=== PATIENT | female | born 1985 | race Caucasian/White ===

== ENCOUNTER 2019-06-12 13:45 | Emergency (ER) | payer MEDICAID, SELFPAY ==
[2019-06-12 13:46] VITALS: BP 140/105; PULSE 118; RESP 17; TEMP 36.4; O2SAT 96; BMI 41.9
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
--- NOTE | 2019-06-12 14:13 | PC.NURSE ---
Patient wanders into song at this time. Patient states I want to go home, I just need to go home and take a shower. Patient is asked to return to her room and that this nurse would notify the provider. ED physician notified of patient behavior at this time.
[2019-06-12] MEDS: LORazepam 1 mg Tablet PO (14:45)
--- NOTE | 2019-06-12 14:52 | PC.NURSE ---
Patient is up in room and pacing at this time. Patient states that she would like to leave. States she just wants to go home. Patient then mumbles several sentences I am unable to make out and she refuses to repeat. Patient does take ordered PO ativan at this time, but is restless and seems increasingly agitated & tearful. ED physician notified.
[2019-06-12 15:12] VITALS: PULSE 96; RESP 24; O2SAT 99
[2019-06-12 15:34] LABS: Alanine Aminotransferase 34 U/L (0-33); Albumin Level 4.5 g/dL (3.5-5.2); Alkaline Phosphatase 98 IU/L (35-105); Anion Gap 14.3 (5-19); Aspartate Amino Transferase 28 U/L (0-32); Blood Urea Nitrogen 14 mg/dL (6-20); Calcium 10.1 mg/Dl (8.6-10.0); Carbon Dioxide 25 mmol/L (22-29); Chloride 103 mmol/L (98-107); Globulin 3.3 g/dL (1.3-4.6); Glomerular Filtration Rate 81.6 mL/min (90-130); Glucose 110 mg/dL (74-109); Potassium 3.3 mmol/L (3.5-5.1); Sodium 139 mmol/L (136-145); Total Bilirubin 0.3 mg/dL (0.15-1.2); Total Protein 7.8 g/dL (6.6-8.7)
[2019-06-12 15:47] LABS: Basophils % 0.4 %; Eosinophils # 0.2 10^3/uL (0.0-0.8); Eosinophils % 2.6 %; Hematocrit 45.2 % (37.0-47.0); Hemoglobin 14.8 g/dL (11.5-15.3); Lymphocytes # 2.6 10^3/uL (0.8-4.8); Lymphocytes % 30.1 %; Mean Corpuscular HGB Conc 32.7 g/dL (30.0-36.0); Mean Corpuscular Hemoglobin 30.6 pg (28.0-34.0); Mean Corpuscular Volume 93.6 fL (81-99); Mean Platelet Volume 10.1 fL (7.4-10.4); Monocytes # 0.5 10^3/uL (0.2-0.9); Monocytes % 5.3 %; Neutrophils # 5.2 10^3/uL (1.8-7.7); Neutrophils % 60.9 %; Nucleated Red Blood Cells % 0 %; Platelet Count 312 10^3/cmm (130-400); Red Blood Count 4.83 10^6/uL (4.1-5.3); Red Cell Distribution Width 12.5 % (12.1-15.1); White Blood Count 8.5 10^3/uL (4.0-10.0)
== END 2019-06-12 15:13 | disposition left against medical advice (07) ==
LOC: ER 15:14
PROVIDERS: Emergency Provider Family Medicine
DX: F15.90 Other stimulant use, unspecified, uncomplicated (principal); Z53.21 Procedure and treatment not carried out due to patient leaving prior to being seen by health care provider; F17.210 Nicotine dependence, cigarettes, uncomplicated
CPT/HCPCS: 36415; 80053; 85025; 99281

== ENCOUNTER → 2019-08-18 15:33 | Outpatient (BNVA) | payer MEDICAID, SELFPAY | PROVIDERS: PCP Nurse Practitioner; Visit Provider Nurse Practitioner | DX: E78.2 Mixed hyperlipidemia (principal); E55.9 Vitamin D deficiency, unspecified; F41.9 Anxiety disorder, unspecified; I10 Essential (primary) hypertension; Z91.030 Bee allergy status; J45.909 Unspecified asthma, uncomplicated | CPT/HCPCS: 80053; 80061; 82306 ==

== ENCOUNTER → 2019-11-26 13:34 | Outpatient (BNVA) | payer MEDICAID, SELFPAY | PROVIDERS: PCP Nurse Practitioner; Visit Provider Psychiatry & Neurology Psychiatry | DX: F43.12 Post-traumatic stress disorder, chronic (principal); F33.1 Major depressive disorder, recurrent, moderate; F10.20 Alcohol dependence, uncomplicated; F12.20 Cannabis dependence, uncomplicated | CPT/HCPCS: 99204 ==

== ENCOUNTER 2020-01-04 09:48 | Emergency (ER) | payer OTHER, SELFPAY ==
[2020-01-04 09:48] VITALS: BP 135/101; PULSE 119; RESP 18; TEMP 36.7; O2SAT 96; BMI 41.5
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
[2020-01-04] MEDS: HYDROcodone-acetaminophen 7.5-325 mg Tablet 1 TAB PO (10:06)
[2020-01-04 11:31] VITALS: BP 148/88; PULSE 75; RESP 15; O2SAT 98
== END 2020-01-04 11:31 | disposition home or self-care (01) ==
LOC: ER 11:31
PROVIDERS: Emergency Provider Physician Assistant; PCP Nurse Practitioner
DX: Z04.1 Encounter for examination and observation following transport accident (principal); V89.2XXA Person injured in unspecified motor-vehicle accident, traffic, initial encounter; I10 Essential (primary) hypertension; E78.2 Mixed hyperlipidemia; F17.210 Nicotine dependence, cigarettes, uncomplicated
CPT/HCPCS: 12345; 70450; 72125; 73562; 73630; 99281; 99283

== ENCOUNTER → 2020-01-06 16:51 | Outpatient (BNVA) | payer MEDICAID, SELFPAY | PROVIDERS: PCP Nurse Practitioner; Visit Provider Nurse Practitioner Family | DX: E78.2 Mixed hyperlipidemia (principal); F41.9 Anxiety disorder, unspecified; M25.511 Pain in right shoulder; I10 Essential (primary) hypertension; E55.9 Vitamin D deficiency, unspecified; V89.2XXD Person injured in unspecified motor-vehicle accident, traffic, subsequent encounter; M25.561 Pain in right knee; M25.562 Pain in left knee; K21.9 Gastro-esophageal reflux disease without esophagitis | CPT/HCPCS: 80053; 80061; 82306; 84443; 85025 ==

== ENCOUNTER → 2020-03-31 00:01 | Outpatient (BNVA) | payer MEDICAID, SELFPAY | PROVIDERS: PCP Nurse Practitioner; Visit Provider Nurse Practitioner Family | DX: L02.211 Cutaneous abscess of abdominal wall (principal); I10 Essential (primary) hypertension; K21.9 Gastro-esophageal reflux disease without esophagitis; F33.1 Major depressive disorder, recurrent, moderate; E55.9 Vitamin D deficiency, unspecified; E78.2 Mixed hyperlipidemia; F41.9 Anxiety disorder, unspecified | CPT/HCPCS: 87070; 87075; 87077; 87184; 87205 ==

== ENCOUNTER → 2020-04-01 11:28 | Outpatient (BNVA) | payer MEDICAID, SELFPAY | PROVIDERS: PCP Nurse Practitioner; Visit Provider Nurse Practitioner Family | DX: I10 Essential (primary) hypertension (principal); E55.9 Vitamin D deficiency, unspecified | CPT/HCPCS: 80053; 80061; 82306; 84443; 85025 ==

== ENCOUNTER → 2020-04-21 08:22 | Outpatient (BNVA) | payer MEDICAID, SELFPAY | PROVIDERS: PCP Nurse Practitioner; Visit Provider Psychiatry & Neurology Psychiatry | DX: F33.1 Major depressive disorder, recurrent, moderate (principal); F41.9 Anxiety disorder, unspecified; F43.12 Post-traumatic stress disorder, chronic; F10.20 Alcohol dependence, uncomplicated; F12.20 Cannabis dependence, uncomplicated | CPT/HCPCS: 99214 ==

== ENCOUNTER → 2020-07-12 08:30 | Outpatient (BNVA) | payer MEDICAID, SELFPAY | PROVIDERS: PCP Nurse Practitioner; Visit Provider Psychiatry & Neurology Psychiatry | DX: F41.9 Anxiety disorder, unspecified (principal); F33.1 Major depressive disorder, recurrent, moderate; F10.20 Alcohol dependence, uncomplicated; F12.20 Cannabis dependence, uncomplicated; F43.12 Post-traumatic stress disorder, chronic | CPT/HCPCS: 99214 ==

== ENCOUNTER → 2020-09-30 12:16 | Outpatient (BNVA) | payer MEDICAID, SELFPAY | PROVIDERS: PCP Nurse Practitioner Family; Visit Provider Psychiatry & Neurology Psychiatry | DX: F41.9 Anxiety disorder, unspecified (principal); F33.1 Major depressive disorder, recurrent, moderate; F10.20 Alcohol dependence, uncomplicated; F12.20 Cannabis dependence, uncomplicated; F43.12 Post-traumatic stress disorder, chronic | CPT/HCPCS: 80053; 80061; 82306; 84443; 85025; 99214 ==

== ENCOUNTER 2020-10-04 12:40 | Outpatient (CLI) | payer MEDICAID, SELFPAY ==
[2020-10-04 12:50] VITALS: BMI 19.5
--- NOTE | 2020-10-04 12:51 | USCV_ITS ---
[facility] Age: 35 Gender: F : 1985 Exam Date: 10/04/2020 13:23 Ordering Phys: Jacobo Johnson MD ([email or web address]) Technologist: Mayra Arcos Exam Location: [facility] [place] Indication: atypical chest pain/ abnormal ekg Rhythm: Sinus Patient History: Chest pain Cardiac Medications: Medications in past 24 hours: Contrast: Stress Results Protocol: Jay Total dose(mL): Exercise Duration (min:sec): 6:46 METS: 10.2 Resting HR: 79 Resting BP: 127 / 66 Peak HR: 176 Peak BP: 265 / 112 Max Predicted HR: 184 96 % Max Predicted HR Target HR: 156 Double Product: 52760 Stress Summary: The patient's target heart rate was achieved BP Response: Normal Reason for Termination: Reached target heart rate or work-load Cardiac Symptoms: None ECG Analysis Resting ECG: Normal sinus rhythm, no ST- T wave changes Stress ECG: Sinus tachycardia no ST-T wave changes Arrhythmia: None MEASUREMENTS (Male/Female) Normal Values FINDINGS EXERCISE DATA: The patient was exercised by Jay protocol. Baseline heart rate was 79 beats per minute. Baseline blood pressure was 127/66 millimeters of mercury. Target heart rate was 156 beats per minute. Maximum heart rate achieved was 176, which was 112% of the target heart rate. Maximum blood pressure was 265/112 millimeters of mercury. Total exercise time was 6 minutes and 46 seconds. Maximum METs achieved was 10.2. The reason for ending the test was completion of the protocol. ELECTROCARDIOGRAM: BASELINE: Showed sinus rhythm, normal axis, no significant ST-T changes at the baseline noted. [] EXERCISE: At the peak exercise level, No significant ST-T changes suggestive of ischemia noted. [] RECOVERY: During the recovery period, heart rate dropped appropriately. No significant ST-T changes in the recovery suggestive of ischemia noted. [] BASELINE ECHO: Normal LV systolic function with EF of 55-60%. No regional wall motion abnormalities are seen. EXERCISE ECHO: At peak exercise appropriate tachycardia is noted. LV is appropriately hyperdynamic and no regional wall motion abnormalities suggesting ischemia noted CONCLUSIONS 1. Exercise capacity good. 2. Heart rate response was appropriate. 3. Blood pressure response was hypertensive. 4. Symptoms not suggestive of ischemia. 5. Normal exercise stress echocardiogram without evidence of ischemia Tom Weller MD (Electronically Signed) Final Date: 06 October 2020 10:52 S
--- NOTE | 2020-10-04 13:02 | ECG_ITS ---
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 Interpretive Statements NAME OF STUDY: TREADMILL STRESS ECHOCARDIOGRAM INDICATION: [Chest pain ] PROCEDURE: Patient was exercised by Jay protocol. Baseline heart rate was 79 beats per minute. Baseline blood pressure was 127/66 millimeters of mercury. Target heart rate was 156 beats per minute. Maximum heart rate achieved was 176, which was 112% of the target heart rate. Maximum blood pressure was 265/112 millimeters of mercury. Total exercise time was 6 minutes and 46 seconds. Maximum METs achieved was 10.2.The reason for ending the test was completion of the protocol. ELECTROCARDIOGRAM: BASELINE: Showed sinus rhythm, normal axis, no significant ST-T changes at the baseline noted. EXERCISE: At the peak exercise level, No significant ST-T changes suggestive of ischemia noted. RECOVERY: During the recovery period, heart rate dropped appropriately. No significant ST-T changes in the recovery suggestive of ischemia noted. CONCLUSIONS: 1. Exercise capacity is good. 2. Heart rate response was appropriate. 3. Blood pressure response was hypertensive 4. Symptoms not suggestive of ischemia. 5. Electrocardiogram portion of the stress test was not suggestive of ischemia. 6. ECHO portion of the stress test will be documented separately. Electronically Signed On 10-06-2020 11:04:20 CDT by Tom Weller M.D. [id number]
[2020-10-04 13:59] VITALS: BP 108/66; PULSE 100
== END 2020-10-04 12:41 | disposition home or self-care (01) ==
LOC: CDL 12:40
PROVIDERS: PCP Nurse Practitioner Family; Visit Provider Internal Medicine Cardiovascular Disease
DX: R07.89 Other chest pain (principal); R94.31 Abnormal electrocardiogram [ECG] [EKG]; I10 Essential (primary) hypertension
CPT/HCPCS: 93017; 93350

== ENCOUNTER 2021-03-26 11:27 | Inpatient (IN) | payer MEDICAID, SELFPAY ==
[2021-03-26 11:29] VITALS: BP 125/92; PULSE 96; RESP 15; TEMP 36.9; O2SAT 98; BMI 31.3
--- NOTE | 2021-03-26 11:42 | ECG_ITS ---
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 Measurements Intervals [place] Rate: 87 P: 50 PA: 163 QRS: 62 QRSD: 100 T: 44 QT: 374 QTc: 451 Interpretive Statements SINUS RHYTHM NONSPECIFIC T-WAVE ABNORMALITY No previous ECG available for comparison Electronically Signed On 03-26-2021 21:02:47 CDT by Saundra Goldberg M.D. [id number]
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
[2021-03-26 12:11] VITALS: BP 140/90; PULSE 94; RESP 17; TEMP 36.9; O2SAT 98
[2021-03-26 12:32] LABS: Basophils % 0.5 %; Eosinophils % 0.6 %; Hematocrit 48.5 % (37.0-47.0); Hemoglobin 16.4 g/dL (11.5-15.3); Lymphocytes # 1.7 10^3/uL (0.8-4.8); Lymphocytes % 26.3 %; Mean Corpuscular HGB Conc 33.8 g/dL (30.0-36.0); Mean Corpuscular Hemoglobin 31.7 pg (28.0-34.0); Mean Corpuscular Volume 93.6 fl (81-99); Mean Platelet Volume 11.1 fL (7.4-10.4); Monocytes # 0.5 10^3/uL (0.2-0.9); Monocytes % 8.1 %; Neutrophils % 64.2 %; Nucleated Red Blood Cells % 0 %; Platelet Count 188 10^3/cmm (130-400); Red Blood Count 5.18 10^6/uL (4.1-5.3); Red Cell Distribution Width 11.9 % (12.1-15.1); White Blood Count 6.5 10^3/uL (4.0-10.0)
[2021-03-26 12:58] LABS: Alanine Aminotransferase 23 U/L (0-33); Albumin Level 4.3 g/dL (3.5-5.2); Alkaline Phosphatase 75 IU/L (35-105); Aspartate Amino Transferase 20 U/L (0-32); Blood Urea Nitrogen 12 mg/dL (6-20); Calcium 9.2 mg/dL (8.5-10.5); Carbon Dioxide 26 mmol/L (22-29); Chloride 105 mmol/L (98-107); Glomerular Filtration Rate 81.2 mL/min (90-130); Glucose 93 mg/dL (65-115); Osmolality Calculated 293 mOsm/kg (285-295); Sodium 142 mmol/L (136-145); Thyroid Stimulating Hormone 1.23 uIU/mL (0.27-4.20); Total Bilirubin 0.9 mg/dL (0.15-1.2); Total Protein 7.3 g/dL (6.6-8.7)
[2021-03-26 13:02] LABS: Acetaminophen < 5.0 ug/mL (10-30); Alcohol Level < 10 mg/dL (0-10); Salicylate < 0.3 mg/dL (3-10)
[2021-03-26 13:54] LABS: Amphetamines Screen Urine Negative (Negative); Barbiturates Screen Urine Negative (Negative); Benzodiazepines Screen Urine Positive (Negative); Cocaine Screen Urine Negative (Negative); Opiate Screen Urine Negative (Negative); PCP Screen Urine Negative (Negative); THC Screen Urine Negative (Negative)
[2021-03-26 13:57] VITALS: BP 129/68; PULSE 75; RESP 17; TEMP 37; O2SAT 96
[2021-03-26 14:00] LABS: Urine Appearance SL Hazy (CLEAR); Urine Color Dark Yellow (Yellow)
[2021-03-26 14:01] LABS: Blood Urine 2+ (Negative); Glucose Urine UA Norm (Normal); Ketones Urine 2+ (Negative); Protein Urine Neg (Negative); pH Urine 5 (5-7)
[2021-03-26 14:02] LABS: Add Urine Microscopic? YES; Bilirubin Urine 1+ (Negative); Leukocyte Esterase Urine 1+ (Negative); Nitrate Urine Negative (Negative); Urobilinogen Urine 8 mg/dL (Negative)
[2021-03-26 14:03] LABS: Add Urine Culture? Yes; Amorphous Sediment Urine 1+ /hpf; Bacteria Urine 1+ /hpf; Squamous Epithelial Cell Urine 0-4 /hpf (0-5); WBC Urine 15-25 /hpf (0-5)
[2021-03-26 14:18] LABS: HCG Qualitative Urine. Negative (Negative)
[2021-03-26 16:01] VITALS: BP 128/70; PULSE 88; RESP 17; TEMP 36.7; O2SAT 97
--- NOTE | 2021-03-26 16:05 | PC.NURSE ---
Pt states I know I already have a whole in my arm, can you give me a shot and put me out of my misery. I know that I have a whole in my arm and I'm bleeding everywhere. I know I'm dying. Provider notifed.
[2021-03-26 16:31] VITALS: BP 128/70; PULSE 88; RESP 17; TEMP 36.7; O2SAT 97
[2021-03-26] MEDS: cephALEXin 500 mg Capsule PO (18:18)
[2021-03-26] MEDS: acetaminophen 325 mg Tablet 650 MG PO (18:24)
[2021-03-26 20:53] VITALS: BP 150/90; PULSE 50; RESP 15; TEMP 36.8; O2SAT 97
--- NOTE | 2021-03-26 20:54 | PC.NURSE ---
RN notified of b/p
--- NOTE | 2021-03-26 21:10 | PC.NURSE ---
PT wants to DC AMA, attempted to call physician, call went to voicemail. no answer, voicemail is full, will attempt to call him again. pt states she has a place to go and can obtain ride. she is not SI/HI at this time.
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
--- NOTE | 2021-03-27 01:20 | PC.NURSE ---
during rounding staff noticed pt had door shut, staff opened the door to find pt had put bedside table in front of door to block staff from entering staff educated pt that it was not allowed to have door shut or to block door from opening. Pt stated i'm not suicidal therefor it can be shut staff educated pt on unit rules/policy stating the door had to be open, pt responded with y'all are trying to kill me, I don't want no more shots staff reminded pt that they did not receive any medication via shot
--- NOTE | 2021-03-27 05:04 | PC.NURSE ---
NO RIDE/AMA PT WANTS TO DC AMA, PHYSICIAN NOTIFIED, SISTER BREANA JORDAN, CONTACTED. SHE LIVES IN [place], STATES SHE CAN NOT COME TO PICK HER UP DUE TO LACK OF MONEY FOR GAS. PT RETURNED TO HER ROOM, STATES iM LEAVING IN THE MORNING EVEN IF I HAVE TO WALK HOME. PT WENT TO HER ROOM WHERE SHE IS PACING. SHE HAS NOT SLEPT AT ALL TONIGHT. PT HAS PERMISSION TO LEAVE UNIT, PER DR. MENDOZA AND ARBORIST REPRESENTATIVE.
[2021-03-27 06:00] VITALS: BP 117/79; PULSE 69; RESP 18; TEMP 36.8; O2SAT 97
--- NOTE | 2021-03-27 07:09 | PC.NURSE ---
pt coming up to nurses station stating i want a cigarette, you guys are going to put me out anyway staff educated pt on policy regarding smoking on hospital property pt then stated i cant be around my kids with that mask can i? staff asked pt to clarify pt said Im confused, can't I wear this mask around my kids? staff educated pt that wearing mask around children was not harmful pt does not have a mask, pt is confused at this moment
--- NOTE | 2021-03-27 08:13 | PC.NURSE ---
refused scheduled Keflex this morning
--- NOTE | 2021-03-27 11:04 | PC.NURSE ---
Patient standing at nursing desk, staring at wall, stating You can't hold me here, I'm leaving. I need to go. I have to check on my children. Advised patient the doctor had to speak with her first. She kept repeating, I need to check on Rajendra. Reports her children are with her aunt. Dr. Carrera aware of patient actions.
--- NOTE | 2021-03-27 11:11 | NPU.GN ---
[facility] Group Topic:Dice Breaker General Mood of Group: Yessica did not attend group therapy today. Possible 96 hr hold was stated in team meeting with doctor this morning.
[2021-03-27 14:00] VITALS: BP 117/62; PULSE 107; RESP 20; TEMP 36.3; O2SAT 97
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
--- NOTE | 2021-03-27 15:45 | PC.NURSE ---
Patient very restless, wringing hands, pacing hallways, approached patient multiple times, asking if I could help her or get her anything, I just need a cigarette Informed patient I could get her a nicotine patch or gum. Patient declined, I just need to smoke.
--- NOTE | 2021-03-27 16:13 | PC.NURSE ---
Patient continues to report that she is afraid she is going to today. Continues to pace up and down the hallways, wanting a cigarette, offered a nicotine patch and patient declines. Reassured patient we are monitoring her for safety.
--- NOTE | 2021-03-27 17:17 | PC.RESP ---
Smoking Cessation information sent to patient.
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
[2021-03-27 22:00] VITALS: BP 116/78; PULSE 72; RESP 16; TEMP 36.7; O2SAT 98
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
[2021-03-28] MEDS: acetaminophen 325 mg Tablet 650 MG PO (04:31)
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
[2021-03-28 06:00] VITALS: BP 129/80; PULSE 97; RESP 18; TEMP 37; O2SAT 96
--- NOTE | 2021-03-28 07:55 | PC.NURSE ---
PATIENT AT NURSES DESK DEMANDING TO BE LET OUT. SLAPPING HANDS ON COUNTER. PACING BACK AN FORTH FROM ROOM TO DESK, STANDING IN DOORWAY STARING AT NURSES STATION. STATING, YOU NEED TO HURRY IT UP! I NEED TO LEAVE, YOU CAN'T HOLD ME HERE. I HAVE TO CHECK ON MY SISTER. LET ME OUT. INFORMED PATIENT THAT I NEEDED FOR HER TO BE SEEN THIS MORNING OR TO BE ABLE TO OBTAIN A DISCHARGE FROM THE PHYSICIAN TO LET HER LEAVE. OFFERED PATIENT PRN MEDICATIONS, AND SHE REPLIED, YOU ARE TRYING TO KILL ME, YOU ARE TRYING TO KILL ALL OF US.
--- NOTE | 2021-03-28 08:03 | PC.NURSE ---
PATIENT DID NOT EAT ANY OF HER BREAKFAST WHEN TRAYS WERE TAKEN TO THE DAYROOM. AFTER TRAYS WERE COLLECTED SHE CAME TO DESK AND ASKED FOR SOMETHING TO EAT, STAFF GAVE HER A BREAKFAST TRAY, AND ADDED A CLOSED BOX OF CEREAL, MILK AND A BANANA, DUE TO PARANOIA OF US POISONING HER. CARRIED HER TRAY TO THE DAYROOM AND THEN SHE REFUSED TO EAT IT. RETURNED TRAY TO CAFETERIA CART. THEN PATIENT ASKED FOR THE BANANA, AND WENT TO HER ROOM.
--- NOTE | 2021-03-28 08:23 | PC.NURSE ---
refused scheduled Keflex
--- NOTE | 2021-03-28 08:27 | PC.NURSE ---
PATIENT AGAIN AT DESK DEMANDING TO GO HOME, KICKING CABINET AND PUSHING ON DOOR TO FOYER, SHE CONTINUED PUSHING AND RAMMING UNTIL BOTTOM OF DOOR WAS MOVING ABOUT 4-8 INCHES. HAD SECURITY PAGED FOR PRESENCE ON UNIT. DIRECTED PATIENT AWAY FROM DOOR, AND CONTINUED TO TALK WITH HER ABOUT CONCERNS FOR HER FAMILY'S SAFETY, HOW SHE FELT THAT THEY WOULD WHEN SHE DID. AND SHE NEEDED OUT TO CHECK ON HER KIDS AND FAMILY. CONTINUED TO REINFORCE TO PATIENT THAT SHE TOLD ME YESTERDAY HER CHILDREN WERE WITH HER SISTER AND GRANDMOTHER. PATIENT EVENTUALLY WALKED AWAY AND RETURNED TO HER ROOM. SHE THEN CAME TO THE DESK AND APOLOGIZED TO TALKING TO ME THAT WAY. SHE CONTINUES TO PACE THE HALLWAY MAKING STATEMENTS WHOEVER PUT ME IN THIS GAME IS BULLCRAP.
--- NOTE | 2021-03-28 11:55 | NPU.GN ---
[facility] Topic: Mariely General Mood of Group: Yessica did not attend group therapy today. Yessica was huddled on the floor crying in the hallway throughout the morning.
--- NOTE | 2021-03-28 12:56 | PC.NURSE ---
Attempted to contact both phone numbers listed on the demographics page of Ms. Vasquez's record, no answer at either number and unable to leave message.
[2021-03-28 14:00] VITALS: BP 125/88; PULSE 80; RESP 18; TEMP 36.2; O2SAT 97
--- NOTE | 2021-03-28 17:31 | PC.NURSE ---
FAMILY CONTACT AUNT, SUNIL HARRINGTON [phone]
--- NOTE | 2021-03-28 19:08 | PM.NPN ---
Subjective NPU Subjective: Interval history: Patient presents today continue to have confusion and going on long confusing rants about people she cares about dying and about her dying and trying to avoid at all cost. We discussed the risk benefits and alternatives of a trial of an antipsychotic and she understood it at this point is unwilling to proceed with the medication as is documented in this note. She cannot explain benzodiazepines in her UDS and we discussed that she is not having other signs but misuse, intoxication or withdrawal from benzodiazepines could cause confusion. Mental Status Exam MSE Comments: This is an obese, white female, in hospital scrubs, with adequate grooming, and limited eye contact. No abnormal movements except for mild psychomotor agitation. Cooperative with exam in no acute distress. Speech was normal rate and volume. Mood described as okay; affect was confused. Thought process, organized. Thought content: patient denied any suicidal or homicidal ideation, there were no delusions noted, but she did report some paranoia. Patient denied any auditory or visual hallucinations. Attention, concentration, and memory appear intact but were not formally tested. He is alert and oriented times three. Insight and judgment are impaired, impulse control is impaired. Vitals/I&O/Wt Last Vital Signs Temp 97.5 F L 03/28/21 20:38 Pulse 106 H 03/28/21 20:38 Resp 16 03/28/21 20:38 BP 108/82 03/28/21 20:38 Pulse Ox 95 03/28/21 20:38 Data NPU : 03/26/21 12:00 03/26/21 12:00 Micro: Microbiology 03/26/21 11:55 Urine Culture - Final Urine,Clean Catch Escherichia coli Microbiology 03/26/21 11:55 Urine,Clean Catch Urine Culture - Final Escherichia coli A&P Additional A&P Information (1) Allergic rhinitis: (2) Smoking addiction: (3) History of alcohol abuse: (4) History of intravenous drug abuse: (5) OROSCO (dyspnea on exertion): (6) Dyslipidemia: (7) Abnormal EKG: (8) Atypical chest pain: (9) Declined smoking cessation: (10) RLS (restless legs syndrome): (11) Abscess of skin of abdomen: (12) Right knee pain: (13) GERD (gastroesophageal reflux disease): (14) Bilateral knee pain: (15) Right shoulder pain: (16) Cannabis use disorder, moderate, dependence: (17) Alcohol use disorder, severe, dependence: (18) Major depressive disorder, recurrent, moderate: (19) Post-traumatic stress disorder, chronic: (20) Bee sting allergy: (21) Allergic atopic asthma without complication: (22) Vitamin D deficiency: (23) Anxiety: (24) Mixed hyperlipidemia: (25) Essential (primary) hypertension: (26) Altered mental status: Additional A&P Information This is a 35-year-old, white female, with history of alcohol use disorder, severe, post-traumatic stress disorder, major depressive disorder, and cannabis use disorder, who presents with either confusion that prevents accurate history giving, or intentional misrepresentation of history, who presents denying interest in medication or treatment. RECOMMENDATION AND PLAN: 1. Continue current medication. We will continue to suggest a low-dose antipsychotic to attempt to address her psychosis versus confusion. 2. Encourage individual, group, and milieu therapy. 3. Continue q-15 minute checks for safety. 4. Encourage sober living treatment after discharge, at the highest level of care, to which she is willing to commit. Involuntary Hold Information 96 Hour Hold: 96 Hour Involuntary Admission: No Attestations NPU Medical Necessity Statement*: Inpatient hospitalization is medically necessary and the clinically appropriate intervention, at this time. We will monitor medications and make changes as indicated. Likely length of stay is 2-4 days. Coding Level of Care Code Acute Supervisor Aircraft Cleaning for Ricardo Reyes
[2021-03-28 20:38] VITALS: BP 108/82; PULSE 106; RESP 16; TEMP 36.4; O2SAT 95
[2021-03-28] MEDS: trazodone 50 mg Tablet PO (21:16)
[2021-03-29 06:00] VITALS: BP 99/63; PULSE 72; RESP 18; TEMP 36.4; O2SAT 100
--- NOTE | 2021-03-29 12:16 | NPU.GN ---
[facility] Topic:Coping Skills Bingo/ Cross word puzzle General Mood of Group: Yessica did not attend and participate in group therapy this morning. Yessica wanted to sleep.
--- NOTE | 2021-03-29 13:10 | P.PN_ITS ---
Subjective NPU Subjective: Interval history: Patient continues to perseverate about dying. She is now refusing her antibiotics and is still not open to a trial of an antipsychotic. We discussed the possibility of a 96-hour hold but discussed the fact that Dr. Wright will be here tomorrow and he can take a look at her situation. Mental Status Exam MSE Comments: This is an obese, white female, in hospital scrubs, with adequate grooming, and limited eye contact. No abnormal movements except for mild psychomotor agitation. Cooperative with exam in no acute distress. Speech was normal rate and volume. Mood described as fine, i just don't want to ; affect was irritable and confused. Thought process was loosely organized. Thought content: patient denied any suicidal or homicidal ideation, there were no delusions noted, but she did report some paranoia. Patient denied any auditory or visual hallucinations. Attention, concentration, and memory appear intact but were not formally tested. She is alert and oriented times three. Insight and judgment are impaired, impulse control is impaired. Vitals/I&O/Wt Last Vital Signs Temp 97.6 F 03/29/21 06:00 Pulse 72 03/29/21 06:00 Resp 18 03/29/21 06:00 BP 99/63 03/29/21 06:00 Pulse Ox 100 03/29/21 06:00 Data NPU : 03/26/21 12:00 03/26/21 12:00 A&P Additional A&P Information (1) Allergic rhinitis: (2) Smoking addiction: (3) History of alcohol abuse: (4) History of intravenous drug abuse: (5) OROSCO (dyspnea on exertion): (6) Dyslipidemia: (7) Abnormal EKG: (8) Atypical chest pain: (9) Declined smoking cessation: (10) RLS (restless legs syndrome): (11) Abscess of skin of abdomen: (12) Right knee pain: (13) GERD (gastroesophageal reflux disease): (14) Bilateral knee pain: (15) Right shoulder pain: (16) Cannabis use disorder, moderate, dependence: (17) Alcohol use disorder, severe, dependence: (18) Major depressive disorder, recurrent, moderate: (19) Post-traumatic stress disorder, chronic: (20) Bee sting allergy: (21) Allergic atopic asthma without complication: (22) Vitamin D deficiency: (23) Anxiety: (24) Mixed hyperlipidemia: (25) Essential (primary) hypertension: (26) Altered mental status: Additional A&P Information This is a 35-year-old, white female, with history of alcohol use disorder, severe, post-traumatic stress disorder, major depressive disorder, and cannabis use disorder, who presents with either confusion that prevents accurate history giving, or intentional misrepresentation of history, who presents denying interest in medication or treatment. RECOMMENDATION AND PLAN: 1. Continue current medication. We will continue to suggest a low-dose antipsychotic to attempt to address her psychosis versus confusion. 2. Encourage individual, group, and milieu therapy. 3. Continue q-15 minute checks for safety. 4. Encourage sober living treatment after discharge, at the highest level of care, to which she is willing to commit. 5. We will consider a 21-day hold. Involuntary Hold Information 96 Hour Hold: 96 Hour Involuntary Admission: No Attestations NPU Medical Necessity Statement*: Inpatient hospitalization is medically necessary and the clinically appropriate intervention, at this time. We will monitor medications and make changes as indicated. Likely length of stay is 2-4 days. Coding Level of Care Code Acute Polls Or Surveys Interviewer for Ricardo Reyes
[2021-03-29 14:00] VITALS: BP 118/86; PULSE 91; RESP 16; TEMP 36.6; O2SAT 98
--- NOTE | 2021-03-29 19:40 | PC.NURSE ---
pt refusal to take Antibiotic Pt refused to take medication, thinks about taking med, but will not. Refused Keflex
[2021-03-29 20:08] VITALS: BP 126/89; PULSE 93; RESP 18; TEMP 37.2; O2SAT 94
--- NOTE | 2021-03-30 04:31 | PC.NURSE ---
Patient up early in shift. Calm and cooperative with appropriate affect. Denied SI/HI, AVH, anxiety or depression. Quiet with minimal interaction with others but appropriate when approached. Patient pacing in song much of night. In bed resting with eyes closed at 0400.
[2021-03-30 06:00] VITALS: BP 129/69; PULSE 76; RESP 14; TEMP 37; O2SAT 97
--- NOTE | 2021-03-30 08:18 | PC.NURSE ---
refused scheduled Keflex
--- NOTE | 2021-03-30 13:02 | NPU.GN ---
[facility] Topic:Coping Kills Checklist General Mood of Group: Yessica did not attend group today. She wanted to sleep.
[2021-03-30 14:00] VITALS: BP 116/80; PULSE 70; RESP 16; TEMP 36.3; O2SAT 96
--- NOTE | 2021-03-30 14:17 | PM.NPN ---
Subjective NPU Subjective: Interval history: The patient is still unable to tell a coherent story about how her symptoms developed, what they were, and even what brought her to the hospital. She says her mood is okay, that she is no longer feeling depressed, and that she is not feeling she is going to . On the other hand, when asked why she came here, she said, I felt weird, like I was dying. I guess it's better. She does not notice the inconsistency between saying the feeling that she is going to went away and feeling like it still here. We talked about medication again, and she is still unwilling to take medications. We talked about her past treatment for anxiety and panic, which she indicates is better these days. We also talked about her 4 children, two of whom live with her at her aunt's house. She denies auditory and visual hallucinations. She denies suicidal and homicidal ideation. Mental Status Exam MSE Comments: This is an obese, white female, in hospital scrubs, with adequate grooming, and limited eye contact. No abnormal movements except for mild psychomotor agitation. Cooperative with exam in no acute distress. Speech was normal rate and volume. Mood described as okay; affect was irritable and confused. Thought process was loosely organized. Thought content: patient denied any suicidal or homicidal ideation, there were no delusions noted, but she did report some paranoia. Patient denied any auditory or visual hallucinations. Attention, concentration, and memory appear intact but were not formally tested. She is alert and oriented times three. Insight and judgment are impaired, impulse control is impaired. Vitals/I&O/Wt Last Vital Signs Temp 98.6 F 03/30/21 06:00 Pulse 76 03/30/21 06:00 Resp 14 03/30/21 06:00 BP 129/69 03/30/21 06:00 Pulse Ox 97 03/30/21 06:00 Data NPU : 03/26/21 12:00 03/26/21 12:00 A&P Assessment and plan (1) Altered mental status: Status: Acute (2) History of intravenous drug abuse: Status: Acute (3) Abnormal EKG: Status: Acute (4) Atypical chest pain: Status: Acute (5) RLS (restless legs syndrome): Status: Acute (6) Abscess of skin of abdomen: Status: Acute (7) Head lice: Status: Acute (8) Cannabis use disorder, moderate, dependence: Status: Acute (9) Alcohol use disorder, severe, dependence: Status: Acute (10) Major depressive disorder, recurrent, moderate: Status: Acute (11) Post-traumatic stress disorder, chronic: Status: Acute (12) Bee sting allergy: Status: Chronic (13) Vitamin D deficiency: Status: Acute (14) Anxiety: Status: Chronic Additional A&P Information This is a 35-year-old, white female, with history of alcohol use disorder, severe, post-traumatic stress disorder, major depressive disorder, and cannabis use disorder, who presents with either confusion that prevents accurate history giving, or intentional misrepresentation of history, who presents denying interest in medication or treatment. RECOMMENDATION AND PLAN: 1. Continue current medication. We will continue to suggest a low-dose antipsychotic to attempt to address her psychosis versus confusion. 2. Encourage individual, group, and milieu therapy. 3. Continue q-15 minute checks for safety. 4. Encourage sober living treatment after discharge, at the highest level of care, to which she is willing to commit. Involuntary Hold Information 96 Hour Hold: 96 Hour Involuntary Admission: No Attestations NPU Medical Necessity Statement*: Inpatient hospitalization is medically necessary and the clinically appropriate intervention, at this time. We will monitor medications and make changes as indicated. Likely length of stay is 2-4 days. Coding Level of Care Code Acute Custom Shop Worker for g Fwd Diagnoses Altered mental status R41.82 History of intravenous drug abuse F19.11 Abnormal EKG R94.31 Atypical chest pain R07.89 RLS (restless legs syndrome) G25.81 Abscess of skin of abdomen L02.211 Head lice B85.0 Cannabis use disorder, moderate, dependence F12.20 Alcohol use disorder, severe, dependence F10.20 Major depressive disorder, recurrent, moderate F33.1 Post-traumatic stress disorder, chronic F43.12 Bee sting allergy Z91.030 Vitamin D deficiency E55.9 Anxiety F41.9
[2021-03-30 19:55] VITALS: BP 109/71; PULSE 64; RESP 16; TEMP 36.8; O2SAT 96
--- NOTE | 2021-03-30 20:00 | PC.NURSE ---
Upon assessment patient refused her scheduled medication and refused to answer any assessment questions. Patient was awake and lying in bed. Poor eye contact. Will attempt to assess at a later time.
[2021-03-31 06:00] VITALS: BP 130/70; PULSE 80; RESP 16; TEMP 37.1; O2SAT 96
[2021-03-31] MEDS: cephALEXin 500 mg Capsule PO (11:06)
[2021-03-31 14:00] VITALS: RESP 18
--- NOTE | 2021-03-31 15:10 | P.PN_ITS ---
Subjective NPU Subjective: Interval history: I met with the treatment team to discuss the patient's progress. She told nursing that she was having auditory hallucinations of a voice saying to save her boys. She has been paranoid but cooperative. She still does not want to take any medication, including the Keflex. I met with the patient in her room with the door open. She says that her mood is all right and she has no depression. She slept well last night. She does describe hearing voices telling her to save your children. They also tell her that she is going to hell. She denies visual hallucinations. She says she has been reading her Bible this morning, and that has been helpful with the voices. She still does not want to take medications. She denies suicidal and homicidal ideation. She has no physical complaints. Mental Status Exam MSE Comments: This is an obese, white female, in hospital scrubs, with adequate grooming, and limited eye contact. No abnormal movements except for mild psychomotor agitation. Cooperative with exam in no acute distress. Speech was normal rate and volume. Mood described as all right; affect calmer and more pleasant. Thought process was still loosely organized. Thought content: patient denied any suicidal or homicidal ideation, there were no delusions noted, but she did report some paranoia. Patient reports auditory but not visu al hallucinations. Attention, concentration, and memory appear intact but were not formally tested. She is alert and oriented times three. Insight and judgment are impaired, impulse control is impaired. Vitals/I&O/Wt Last Vital Signs Temp 98.7 F 03/31/21 06:00 Pulse 80 03/31/21 06:00 Resp 16 03/31/21 06:00 BP 130/70 03/31/21 06:00 Pulse Ox 96 03/31/21 06:00 Data NPU : 03/26/21 12:00 03/26/21 12:00 A&P Assessment and plan (1) Depression, major, recurrent, severe with psychosis: Status: Acute (2) Post-traumatic stress disorder, chronic: Status: Acute (3) Anxiety: Status: Chronic (4) Altered mental status: Status: Acute (5) History of alcohol abuse: Status: Acute (6) History of intravenous drug abuse: Status: Acute (7) RLS (restless legs syndrome): Status: Acute (8) GERD (gastroesophageal reflux disease): Status: Acute Qualifiers: Esophagitis presence: esophagitis presence not specified Qualified Code(s): K21.9 - Gastro-esophageal reflux disease without esophagitis (9) Cannabis use disorder, moderate, dependence: Status: Acute (10) Vitamin D deficiency: Status: Acute Additional A&P Information This is a 35-year-old, white female, with history of alcohol use disorder, severe, post-traumatic stress disorder, major depressive disorder, and cannabis use disorder, who presents with either confusion that prevents accurate history giving, or intentional misrepresentation of history, who presents denying interest in medication or treatment. RECOMMENDATION AND PLAN: 1. Continue current medication. We will continue to suggest a low-dose antips ychotic to attempt to address her psychosis versus confusion. Patient continues to refuse. 2. Encourage individual, group, and milieu therapy. 3. Continue q-15 minute checks for safety. 4. Encourage sober living treatment after discharge, at the highest level of care, to which she is willing to commit. 5. We will consider a 21-day hold. She is on no hold at this time. Involuntary Hold Information 96 Hour Hold: 96 Hour Involuntary Admission: No Attestations NPU Medical Necessity Statement*: Inpatient hospitalization is medically necessary and the clinically appropriate intervention, at this time. We will monitor medications and make changes as indicated. Likely length of stay is 2-4 days. Coding Level of Care Code Acute Material Man for Ricardo Brantleyd Diagnoses Depression, major, recurrent, severe with psychosis F33.3 Post-traumatic stress disorder, chronic F43.12 Anxiety F41.9 Altered mental status R41.82 History of alcohol abuse F10.11 History of intravenous drug abuse F19.11 RLS (restless legs syndrome) G25.81 GERD (gastroesophageal reflux disease) K21.9 Esophagitis presence: esophagitis presence not specified Cannabis use disorder, moderate, dependence F12.20 Vitamin D deficiency E55.9
[2021-03-31 21:03] VITALS: RESP 17
[2021-04-01 06:00] VITALS: BP 93/59; PULSE 67; RESP 15; TEMP 36.9; O2SAT 95
[2021-04-01 14:00] VITALS: BP 109/72; PULSE 72; RESP 20; TEMP 36.4; O2SAT 99
--- NOTE | 2021-04-01 15:26 | P.PN_ITS ---
Subjective NPU Subjective: Interval history: The patient says she is feeling okay, and she says that reading her Bible makes me feel better, alive again. She says her mind is clear now. It is like I was doped up. She denies feeling like she will or should now. On the other hand she does say that it does feel like something in life is missing, but she is not sure what. Mental Status Exam MSE Comments: This is an obese, white female, in hospital scrubs, with adequate grooming, and improved eye contact. No abnormal movements. No psychomotor agitation or retardation. Cooperative with exam. No acute distress. Speech was normal rate and volume. Mood described as all right; affect calmer and more pleasant. Thought process was still loosely organized. Thought content: patient denied any suicidal or homicidal ideation, there were no delusions noted, but she did report some paranoia. Patient reports auditory but not visual hallucinations. Attention, concentration, and memory appear intact but were not formally tested. She is alert and oriented times three. Insight and judgment are impaired, impulse control is impaired. Vitals/I&O/Wt Last Vital Signs Temp 99.0 F 04/02/21 14:00 Pulse 73 04/02/21 14:00 Resp 18 04/02/21 14:00 BP 123/73 04/02/21 14:00 Pulse Ox 93 04/02/21 14:00 Weight last 48 hrs Weight 90.718 kg Data NPU : 03/26/21 12:00 03/26/21 12:00 A&P Assessment and plan (1) Depression, major, recurrent, severe with psychosis: Status: Acute (2) Altered mental status: Status: Acute (3) Post-traumatic stress disorder, chronic: Status: Acute (4) Anxiety: Status: Chronic (5) Cannabis use disorder, moderate, dependence: Status: Acute (6) History of alcohol abuse: Status: Acute (7) History of intravenous drug abuse: Status: Acute (8) Vitamin D deficiency: Status: Acute (9) RLS (restless legs syndrome): Status: Acute (10) GERD (gastroesophageal reflux disease): Status: Acute Qualifiers: Esophagitis presence: esophagitis presence not specified Qualified Code(s): K21.9 - Gastro-esophageal reflux disease without esophagitis Additional A&P Information This is a 35-year-old, white female, with history of alcohol use disorder, severe, post-traumatic stress disorder, major depressive disorder, and cannabis use disorder, who presents with either confusion that prevents accurate history giving, or intentional misrepresentation of history, who presents denying interest in medication or treatment. RECOMMENDATION AND PLAN: 1. Continue current medication. We will continue to suggest a low-dose antipsychotic to attempt to address her psychosis versus confusion. Patient continues to refuse. 2. Encourage individual, group, and milieu therapy. 3. Continue q-15 minute checks for safety. 4. Encourage sober living treatment after discharge, at the highest level of care, to which she is willing to commit. 5. We will consider a 21-day hold. She is on no hold at this time. Involuntary Hold Information 96 Hour Hold: 96 Hour Involuntary Admission: No Attestations NPU Medical Necessity Statement*: Inpatient hospitalization is medically necessary and the clinically appropriate intervention, at this time. We will monitor medications and make changes as indicated. Likely length of stay is 2-4 days. Coding Level of Care Code Acute Disability Case Manager for Ricardo Reyes Diagnoses Depression, major, recurrent, severe with psychosis F33.3 Altered mental status R41.82 Post-traumatic stress disorder, chronic F43.12 Anxiety F41.9 Cannabis use disorder, moderate, dependence F12.20 History of alcohol abuse F10.11 History of intravenous drug abuse F19.11 Vitamin D deficiency E55.9 RLS (restless legs syndrome) G25.81 GERD (gastroesophageal reflux disease) K21.9 Esophagitis presence: esophagitis presence not specified
[2021-04-01 22:00] VITALS: BP 115/79; PULSE 82; RESP 17; TEMP 36.6; O2SAT 98
[2021-04-02 06:00] VITALS: BP 124/81; PULSE 68; RESP 17; TEMP 36.8; O2SAT 97
--- NOTE | 2021-04-02 07:56 | PC.NURSE ---
refused scheduled Miralax and Keflex
[2021-04-02 14:00] VITALS: BP 123/73; PULSE 73; RESP 18; TEMP 37.2; O2SAT 93
--- NOTE | 2021-04-02 17:33 | PM.NPN ---
Subjective NPU Subjective: Interval history: The patient was more open with me today about her experiences. She says she is always been close to God and had voodoo experiences. She says that sometimes God gives her dreams that come true, such as when her daughter was bit by a dog. She is able to say more about the idea that she thought she was going to . She says she had a dream in which she was taken up into heaven. She thinks this means that she will soon and go to heaven. She has a high conviction that this will happen because other dreams have come true too. She denies any wish or intention to kill herself though. The patient does say that she had smoked marijuana recently, but denies using methamphetamines for quite some time. She still does not want to take medications. Mental Status Exam MSE Comments: This is an obese, white female, in hospital scrubs, with adequate grooming, and improved eye contact. No abnormal movements. No psychomotor agitation or retardation. Cooperative with exam. No acute distress. Speech was normal rate and volume. Mood described as good; affect fairly calm and pleasant. Thought process is more organized. Thought content: patient denied any suicidal or homicidal ideation. Her voodoo ideas do not reach the level of delusions. Patient reports auditory but not visual hallucinations. Attention, concentration, and memory appear intact but were not formally tested. She is alert and oriented times three. Insight and judgment are improved, impulse control is improved. Vitals/I&O/Wt Last Vital Signs Temp 99.0 F 04/02/21 14:00 Pulse 73 04/02/21 14:00 Resp 18 04/02/21 14:00 BP 123/73 04/02/21 14:00 Pulse Ox 93 04/02/21 14:00 Weight last 48 hrs Weight 90.718 kg Data NPU : 03/26/21 12:00 03/26/21 12:00 A&P Assessment and plan (1) Depression, major, recurrent, severe with psychosis: Status: Acute (2) Altered mental status: Status: Acute (3) History of alcohol abuse: Status: Acute (4) History of intravenous drug abuse: Status: Acute (5) RLS (restless legs syndrome): Status: Acute (6) GERD (gastroesophageal reflux disease): Status: Acute Qualifiers: Esophagitis presence: esophagitis presence not specified Qualified Code(s): K21.9 - Gastro-esophageal reflux disease without esophagitis (7) Cannabis use disorder, moderate, dependence: Status: Acute (8) Post-traumatic stress disorder, chronic: Status: Acute (9) Vitamin D deficiency: Status: Acute (10) Anxiety: Status: Chronic Additional A&P Information This is a 35-year-old, white female, with history of alcohol use disorder, severe, post-traumatic stress disorder, major depressive disorder, and cannabis use disorder, who presents with either confusion that prevents accurate history giving, or intentional misrepresentation of history, who presents denying interest in medication or treatment. RECOMMENDATION AND PLAN: 1. Continue current medication. We will continue to suggest a low-dose antipsychotic to attempt to address her psychosis versus confusion. Patient continues to refuse. 2. Encourage individual, group, and milieu therapy. 3. Continue q-15 minute checks for safety. 4. Encourage sober living treatment after discharge, at the highest level of care, to which she is willing to commit. 5. She continues to improve as of the likelihood that we will need to request a 21-day hold is diminishing. Involuntary Hold Information 96 Hour Hold: 96 Hour Involuntary Admission: No Attestations NPU Medical Necessity Statement*: Inpatient hospitalization is medically necessary and the clinically appropriate intervention, at this time. We will monitor medications and make changes as indicated. Likely length of stay is 1-3 days. 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
[2021-04-02 19:59] VITALS: BP 120/68; PULSE 62; RESP 15; TEMP 36.4; O2SAT 95
[2021-04-02] MEDS: polyethylene glycol 3350 Pkt 17 gm PO (23:12)
--- NOTE | 2021-04-02 23:16 | PC.NURSE ---
Upon assessment patient in her room. Patient is alert/oriented x3 with very flat affect. She does have good eye contact. She denies any depression or anxiety. She denies pain, SI/HI, hallucinations. She does report that she hasn't had a bm for approx 6-7 days. Abd is distended with hypoactive bs. Dr. Wright gave order for Miralax. Patient wanted to wait until am to start the Miralax, then later asked for the Miralax because she couldn't sleep. Patient remains withdrawn and does not socialize with peers. She has been cooperative with staff. Will continue to monitor and follow plan of care. Q 15 min safety checks per protocol.
[2021-04-03 06:00] VITALS: BP 106/63; PULSE 77; RESP 16; TEMP 37.1; O2SAT 97
[2021-04-03] MEDS: polyethylene glycol 3350 Pkt 17 gm PO (08:10)
--- NOTE | 2021-04-03 08:10 | PC.NURSE ---
PATIENT AT DESK, REPORTS I'M FEELING BETTER ABOUT MY FAMILY, I'M STILL WORRIED ABOUT THEM BUT IT'S GETTING A LITTLE BETTER. I'VE BEEN PRAYING A LOT ABOUT IT.
[2021-04-03] MEDS: cephALEXin 500 mg Capsule PO (08:11)
[2021-04-03 14:00] VITALS: BP 106/76; PULSE 83; RESP 18; TEMP 37; O2SAT 95
--- NOTE | 2021-04-03 18:04 | P.PN_ITS ---
Subjective NPU Subjective: Interval history: The patient says she is feeling better, more like her usual self. Her mood is good. She denies auditory and visual hallucinations. No suicidal ideation. She is not preoccupied with anabaptism ideas today. The patient would like to discharge tomorrow. She feels that she can be safe at home. She stays with her aunt, who supports her. We talked about the importance of refraining from substance use. We also talked about the importance of drinking enough fluids and eating an adequate amount. She understands. Mental Status Exam MSE Comments: This is an obese, white female, in hospital scrubs, with adequate grooming, and improved eye contact. No abnormal movements. No psychomotor agitation or retardation. Cooperative with exam. No acute distress. Speech was normal rate and volume. Mood described as good; affect fairly calm and pleasant. Thought process is fairly well organized. Thought content: patient denied any suicidal or homicidal ideation. Her anabaptism ideas are not apparent today. Patient denies auditory and visual hallucinations. Attention, concentration, and memory appear intact but were not formally tested. She is alert and oriented times three. Insight and judgment are improved, impulse control is improved. Vitals/I&O/Wt Last Vital Signs Temp 98.6 F 04/03/21 14:00 Pulse 83 04/03/21 14:00 Resp 18 04/03/21 14:00 BP 106/76 04/03/21 14:00 Pulse Ox 95 04/03/21 14:00 Weight last 48 hrs Weight 90.718 kg Data NPU : 03/26/21 12:00 03/26/21 12:00 A&P Assessment and plan (1) Depression, major, recurrent, severe with psychosis: Status: Acute (2) Altered mental status: Status: Acute (3) History of alcohol abuse: Status: Acute (4) History of intravenous drug abuse: Status: Acute (5) RLS (restless legs syndrome): Status: Acute (6) GERD (gastroesophageal reflux disease): Status: Acute Qualifiers: Esophagitis presence: esophagitis presence not specified Qualified Code(s): K21.9 - Gastro-esophageal reflux disease without esophagitis (7) Cannabis use disorder, moderate, dependence: Status: Acute (8) Major depressive disorder, recurrent, moderate: Status: Acute (9) Post-traumatic stress disorder, chronic: Status: Acute (10) Anxiety: Status: Chronic Additional A&P Information This is a 35-year-old, white female, with history of alcohol use disorder, severe, post-traumatic stress disorder, major depressive disorder, and cannabis use disorder, who presents with either confusion that prevents accurate history giving, or intentional misrepresentation of history, who presents denying interest in medication or treatment. RECOMMENDATION AND PLAN: 1. Continue current medication. We will continue to suggest a low-dose antipsychotic to attempt to address her psychosis versus confusion. Patient c ontinues to refuse. 2. Encourage individual, group, and milieu therapy. 3. Continue q-15 minute checks for safety. 4. Encourage sober living treatment after discharge, at the highest level of care, to which she is willing to commit. Involuntary Hold Information 96 Hour Hold: 96 Hour Involuntary Admission: No Attestations NPU Medical Necessity Statement*: Inpatient hospitalization is medically necessary and the clinically appropriate intervention, at this time. We will monitor medications and make changes as indicated. Anticipate discharge tomorrow. 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
--- NOTE | 2021-04-03 19:28 | NPU.GN ---
[facility] Group Topic:Stress General Mood of Group:Patient was in group on time, dressed appropriately, with good hygiene. The patient participated in group activities. Today the group was able to work on the stress worksheet. Each individually and together. The patient did share information from the worksheet with the group. The patient did ask questions and responded to other patients in the group.
[2021-04-03 20:22] VITALS: BP 110/78; PULSE 96; RESP 14; TEMP 37.1; O2SAT 96
--- NOTE | 2021-04-03 21:00 | PC.NURSE ---
pt refused scheduled keflex. stated i told the doctor i wasn't goig to take it.
--- NOTE | 2021-04-04 01:16 | PC.NURSE ---
Patient up early in evening pacing in song and watching TV in dayroom. Calm and cooperative at that time. Denied any SI/HI or AVH. States that she has a ride that could pick her up in the morning if discharged. States that she feels she may be ready to leave. Did refuse Keflex despite encouragement from nurse to take. No complaints voiced. Resting in bed with eyes closed at this time. No signs of distress noted.
[2021-04-04 06:00] VITALS: BP 115/76; PULSE 67; RESP 17; TEMP 36.8; O2SAT 98
--- NOTE | 2021-04-04 08:13 | PC.NURSE ---
refused scheduled Miralax & Keflex
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
[2021-04-04 11:17] VITALS: BP 115/76; PULSE 67; RESP 17; TEMP 36.8; O2SAT 98
== END 2021-04-04 11:28 | disposition home or self-care (01) | DRG 885 ==
LOC: ER 11:43 → NP 16:04
PROVIDERS: Admitting Provider Psychiatry & Neurology Psychiatry; Emergency Provider Emergency Medicine; PCP Nurse Practitioner Family; Visit Provider Psychiatry & Neurology Child & Adolescent Psychiatry
DX: F33.3 Major depressive disorder, recurrent, severe with psychotic symptoms (principal); F41.9 Anxiety disorder, unspecified; F12.280 Cannabis dependence with cannabis-induced anxiety disorder; F43.12 Post-traumatic stress disorder, chronic; F17.210 Nicotine dependence, cigarettes, uncomplicated; E66.9 Obesity, unspecified; J45.909 Unspecified asthma, uncomplicated; I10 Essential (primary) hypertension; Z87.898 Personal history of other specified conditions; Z86.59 Personal history of other mental and behavioral disorders; Z91.51 Personal history of suicidal behavior; Z81.8 Family history of other mental and behavioral disorders; Z81.4 Family history of other substance abuse and dependence; Z62.810 Personal history of physical and sexual abuse in childhood; Z68.31 Body mass index [BMI] 31.0-31.9, adult
CPT/HCPCS: 80053; 80306; 80307; 81001; 81025; 84443; 85025; 87077; 87086; 87186; 93005; 97150; 97165; 99285

== ENCOUNTER 2021-06-04 04:03 | Emergency (ER) | payer MEDICAID, SELFPAY ==
[2021-06-04 04:13] VITALS: BP 113/78; PULSE 85; RESP 18; TEMP 36.6; O2SAT 97; BMI 31.3
--- NOTE | 2021-06-04 04:32 | PC.NURSE ---
pt states she wants to leave. Pt denies suicidal or homicidal ideation. Dr. Rebollar notified
--- NOTE | 2021-06-04 04:55 | ED_ITS ---
HPI - URI/Sore Throat General: Chief Complaint: Nausea/Vomiting/Diarrhea Stated Complaint: spitting up green stuff Time Seen by Provider: 06/04/21 04:30 History of Present Illness: HPI Narrative: 36-year-old female who arrives to the front door. She says that she wants to be seen because she is not been feeling well. She has had a cough, some congestion, and some green sputum. She denies any fever. She acts quite strangely, and paces in the room. She was noted to be pacing in the waiting room as well, talking to herself. She denies any suicidal or homicidal thoughts. She denies any hallucinations. She denies any previous hospitalizations MD elicited complaint: cough and rhinorrhea Pertinent past history: other Onset (ago): day(s) Consistency: intermittent Severity: moderate Relieving factors: nothing Associated symptoms: Reports chest pain (With cough), congestion, cough and nasal congestion; Deny abdominal pain, change in voice, chills, diarrhea, fever(s), headache(s), nausea, short of breath or vomiting Review of Systems Const: Denies: fever(s) or chills ENMT: Reports: nasal congestion Card: Reports: chest pain (With cough) GI: Denies: abdominal pain, nausea, vomiting or diarrhea Neuro: Denies: headache(s) PFS ED PFSH: Medical History (Updated 04/05/21 @ 00:01 by ) Abnormal EKG Abscess of skin of abdomen Alcohol use disorder, severe, dependence Allergic atopic asthma without complication Allergic rhinitis Anxiety Asthma Atypical chest pain Bee sting allergy Bilateral knee pain Declined smoking cessation OROSCO (dyspnea on exertion) Dyslipidemia Essential (primary) hypertension Head lice Major depressive disorder, recurrent, moderate Mixed hyperlipidemia Right knee pain Right shoulder pain Smoking addiction Vitamin D insufficiency Surgical History History of cholecystectomy History of tubal ligation Family History Family/Other CAD (coronary artery disease) Cancer Lung disease Father CAD (coronary artery disease) Lung disease Grandmother Cancer Mother Chronic kidney disease (CKD) Diabetes Stroke Grandfather Diabetes Daughter Lung disease Other Hypertension Denies family history of Clotting disorder Dementia Suicide Anesthesia complication Bleeding disorder Social History Smoking and tobacco status: current every day smoker cigarettes Packs smoked per day: 0.5 Years cigarettes smoked: 17 Quit status (tobacco): has tried quititng Number of times tried to quit tobacc o: 2 Second hand smoke exposure: Yes Smoking risk assessment/counseling performed?: Yes Alcohol intake: current Alcohol intake frequency: few times a month Desire information about alcohol rehabilitation?: No Desire information about substance/drug rehabilitation?: No Counseling given: Yes Last substance use date: 06/11/19 Caregiver/support person: No Lives independently: Yes Household members: spouse Marital status: Number of children: 4 service: No Current occupational status: unemployed History of recent travel: No Current gender identity: Female Female Reproductive History: Date of last menstrual period: 03/26/21 Physical Exam Const: COMMON NORMALS: no acute distress, patient oriented x3 and alert HENMT: COMMON NORMALS: normocephalic and atraumatic HEAD & SCALP: normocephalic and atraumatic Eye: COMMON NORMALS: Equal, round and reactive pupils present and conjunctivae normal CONJUNCTIVA: Yes conjunctivae normal PUPIL: Yes Equal, round and reactive pupils present Chest: COMMONS NORMALS: normal inspection of the chest Resp: COMMON NORMALS: normal respiratory effort, No use of accessory muscles and clear to auscultation bilaterally AUSCULTATION: clear to auscultation bilaterally Cardio: COMMON NORMALS: regular rate and regular rhythm RATE: regular rate RHYTHM: regular rhythm Neuro: COMMON NORMALS: patient oriented x3 SENSORIUM/ORIENTATION: Yes alert Psych: COMMON NORMALS: cooperative and speech normal APPEARANCE: Yes unkempt ATTITUDE: Yes paranoid and Yes Withdrawn affect present ACTIVITY/MOTOR BEHAVIOR: Yes psychomotor agitation and Yes fidgeting SPEECH: Yes normal speech MOOD & AFFECT: Yes depressed mood and Yes Flat affect present THOUGHT CONTENT: No Suicidality present, No Homicidality present, No delusions and No Hallucination(s) present Course Vital Signs: Vital signs: Vital Signs Temperature 98 F 06/04/21 04:13 Pulse Rate 85 06/04/21 04:13 Respiratory Rate 18 06/04/21 04:13 Blood Pressure 113/78 06/04/21 04:13 Pulse Oximetry 97 06/04/21 04:13 MDM - URI/Sore Throat MDM Narrative: Medical decision making narrative: This patient asked quite strangely in the room. She is mildly anxious, appears somewhat paranoid, and has a flat affect. She cooperates with the exam. Medically, on exam she appears stable. Psychiatrically, she has been noted to be talking to herself. However, she denies hallucinations, suicidal or homicidal ideations, hostile thoughts, etc. She answers most questions appropriately. After being examined, and consenting to blood work, she decided to leave before completion of service. As she is not suicidal or homicidal, she was allowed to do so Discharge Plan Discharge Patient Disposition: Left Against Medical Advice Prescriptions: No Action loratadine [Claritin] 10 mg tablet 10 mg PO DAILY Qty: 30 RF: 11 albuterol sulfate [ProAir HFA] 90 mcg/actuation HFA aerosol inhaler See Rx Instructions .ROUTE .COMPLEX Qty: 8.5 RF: 2 fluticasone propionate 50 mcg/actuation spray,suspension 2 spray INTRANASAL DAILY PRN (Reason: Nasal Congestion) RF: 0 Referrals: Shena Weir FNP [Primary Care Provider] - Coding Level of Care Code ED Spiral Tube Winder for Chg Fwd Exam Detailed
== END 2021-06-04 04:35 | disposition left against medical advice (07) ==
PROVIDERS: Emergency Provider Emergency Medicine; PCP Nurse Practitioner Family
DX: R05.9 Cough, unspecified (principal); R07.9 Chest pain, unspecified; Z53.21 Procedure and treatment not carried out due to patient leaving prior to being seen by health care provider; I10 Essential (primary) hypertension; E78.2 Mixed hyperlipidemia; F17.210 Nicotine dependence, cigarettes, uncomplicated
CPT/HCPCS: 99282

== ENCOUNTER 2021-06-22 18:54 | Inpatient (IN) | payer MEDICAID, SELFPAY ==
[2021-06-22 19:19] VITALS: BP 111/88; PULSE 97; RESP 18; TEMP 36.4; O2SAT 95; BMI 26.6
--- NOTE | 2021-06-22 19:29 | ED.C_ITS ---
Documented by User: ROSALBA Ervin 06/22/21 22:50 HPI - Psych General: Chief Complaint: Psychiatric Symptoms Stated Complaint: court order 96 Time Seen by Provider: 06/22/21 19:27 Source: patient and police Mode of arrival: other (police custody) Limitations: no limitations History of Present Illness: HPI Narrative: Patient is a 36-year-old female who presents to ED today in police custody after they served her 96-hour hold paperwork. Patient is essentially denying all accusations and states she does not know why she is here. Patient's hold paperwork is very lengthy and some of it is illegible. It seems to consistent of several random incidents-I will try and describe here: She constantly calls ambulances but then when she arrives to the hospital immediately leaves. She apparently was missing for 2 days and then found standing in a dollar store opening and closing a freezer door. Her 13-year-old son went to an all-night skate democrat but states after an hour she grabbed a pellet/BB gun and went to go try to pick him up. Hold paperwork states she has not bathed in over a month. She apparently placed her son in school and then i mmediately after one day decided she was moving and took him back out of school. She has disappeared on several occasions for days. She apparently has gotten knives and threatened people with them-even her 13-year-old son. She has threatened to jump out of vehicles. She has slept with knives under her pillow. complaint: other (96 hour hold) Associated symptoms: Deny auditory hallucinations, visual hallucinations, depression, homicidal ideation or suicidal ideation Treatments prior to arrival: placed on mental health hold Review of Systems Const: Denies: fever(s) or chills Card: Denies: chest pain, palpitations, lightheadedness or syncope Resp: Denies: dyspnea GI: Denies: abdominal pain, nausea, vomiting or diarrhea Skin/Breast: Denies: rash Neuro: Denies: headache(s) Psych: Reports: other (pt states she doesn't know why she is here and denies all accusations ); Denies: anxiety, depression, visual hallucinations, auditory hallucinations, suicidal ideation or homicidal ideation [facility] PFSH: Medical History (Updated 01/18/22 @ 00:00 by ) Abnormal EKG Abscess of skin of abdomen Alcohol use disorder, severe, dependence Allergic atopic asthma without complication Allergic rhinitis Anxiety Asthma Atypical chest pain Bee sting allergy Bilateral knee pain Declined smoking cessation OROSCO (dyspnea on exertion) Dyslipidemia Essential (primary) hypertension Head lice Major depressive disorder, recurrent, moderate Mixed hyperlipidemia Right knee pain Right shoulder pain Smoking addiction Vitamin D insufficiency Surgical History History of cholecystectomy History of tubal ligation Family History Family/Other CAD (coronary artery disease) Cancer Lung disease Father CAD (coronary artery disease) Lung disease Grandmother Cancer Mother Chronic kidney disease (CKD) Diabetes Stroke Grandfather Diabetes Daughter Lung disease Other Hypertension Denies family history of Clotting disorder Dementia Suicide Anesthesia complication Bleeding disorder Social History Smoking and tobacco status: current every day smoker cigarettes Packs smoked per day: 0.5 Years cigarettes smoked: 17 Quit status (tobacco): has tried quititng Number of times tried to quit tobacco: 2 Second hand smoke exposure: Yes Smoking risk assessment/counseling performed?: Yes Alcohol intake: current Alcohol intake frequency: few times a month Desire information about alcohol rehabilitation?: No Desire information about substance/drug rehabilitation?: No Counseling given: Yes Last substance use date: 06/11/19 Caregiver/support person: No Lives independently: Yes Household members: spouse Marital status: Number of children: 4 service: No Current occupational status: unemployed History of recent travel: No Current gender identity: Female Female Reproductive History: Date of last menstrual period: 03/26/21 Physical Exam Const: COMMON NORMALS: no acute distress, patient oriented x3, no limitations, alert and well nourished GENERAL APPEARANCE: cooperative ORIENTATION/CONSCIOUSNESS: Yes awake, Yes oriented to person, Yes oriented to place and Yes oriented to time Resp: COMMON NORMALS: normal respiratory effort Neuro: COMMON NORMALS: patient oriented x3, moves all extremities, no focal motor deficits, no sensory deficits noted and gait normal SENSORIUM/ORIENTATION: Yes alert, Yes oriented to person, Yes oriented to place and Yes oriented to time Psych: COMMON NORMALS: mental status grossly normal, cooperative, normal affect, speech normal, activity/motor behavior normal, denies hallucinations, denies homicidal ideation and denies suicidal ideation APPEARANCE: Yes grossly normal ATTITUDE: Yes calm ACTIVITY/MOTOR BEHAVIOR: Yes appropriate eye contact SPEECH: Yes normal speech MOOD & AFFECT: Yes euthymic mood ATTENTION/CONCENTRATION: Yes attention grossly intact and Yes concentration grossly intact MEMORY/COGNITION: Yes memory grossly intact INSIGHT: Fair insight present (Psych) JUDGEMENT: Fair judgement present (Psych) Course Reevaluation(s): Reevaluation #1: Patient has refused blood work several times. She is telling me that her Uncle Ja doesn't want her to have blood drawn and that we are trying to poison her. Dr. Sahni has evaluated patient and ordered IM Versed. Consultations: Consultation #1: Dr. Gillis-accepts to [facility] Vital Signs: Vital signs: Vital Signs Temperature 97.5 F L 06/26/21 06:00 Pulse Rate 91 06/26/21 08:21 Respiratory Rate 18 06/26/21 08:21 Blood Pressure 108/77 06/26/21 08:21 Pulse Oximetry 97 06/26/21 08:21 MDM - Psych Lab Data: Labs: Lab Results 06/22/21 06/22/21 06/22/21 20:55 22:04 22:04 WBC 5.9 10^3/uL 10^3/ uL (4.0-10.0) RBC 4.55 10^6/uL 10^6 /uL (4.1-5.3) Hgb 14.2 g/dL g/dL (11.5-15.3) Hct 42.9 % % (37.0-47.0) MCV 94.3 fl fl (81-99) MCH 31.2 pg pg (28.0-34.0) MCHC 33.1 g/dL g/dL (30.0-36.0) RDW 12.8 % % (12.1-15.1) Plt Count 158 10^3/cmm 10^3 /cmm (130-400) MPV 12.1 fL H fL (7.4-10.4) Neut % (Auto) 47.2 % % Lymph % (Auto) 42.1 % % Benzie % (Auto) 7.4 % % Eos % (Auto) 2.5 % % Baso % (Auto) 0.5 % % Neut # (Auto) 2.78 10^3/uL 10^3 /uL (1.8-7.7) Lymph # (Auto) 2.5 10^3/uL 10^3/ uL (0.8-4.8) Benzie # (Auto) 0.4 10^3/uL 10^3/ uL (0.2-0.9) Eos # (Auto) 0.2 10^3/uL 10^3/ uL (0.0-0.8) Baso # (Auto) 0.0 10^3/uL 10^3/ uL (0.0-0.1) Nucleated RBC % (a uto) 0 % % Nucleated RBCs # 0.0 /100WBC /100W BC Sodium 144 mmol/L mmol/L (136-145) Potassium 4.3 mmol/L mmol/L (3.5-5.1) Chloride 105 mmol/L mmol/L (98-107) Carbon Dioxide 29 mmol/L mmol/L (22-29) Anion Gap 14.3 (5-19) BUN 13 mg/dL mg/dL (6-20) Creatinine 0.7 mg/dL mg/dL (0.5-0.9) GFR Calculation 94.2 mL/min mL/mi n (90-130) Glucose 92 mg/dL mg/dL (65-115) Calculated Osmolal ity 298 mOsm/kg H mOs m/kg (285-295) Calcium 9.1 mg/dL mg/dL (8.5-10.5) Total Bilirubin 0.6 mg/dL mg/dL (0.15-1.2) AST 17 U/L U/L (0-32) ALT 17 U/L U/L (0-33) Alkaline Phosphata se 59 IU/L IU/L (35-105) Total Protein 6.3 g/dL L g/dL (6.6-8.7) Albumin 4.0 g/dL g/dL (3.5-5.2) Globulin 2.3 g/dL g/dL (1.3-4.6) HCG, Qual Salicylates < 0.3 mg/dL L mg/ dL (3-10) Urine Opiates Scre en Negative ng/mL ng /mL (Negative) Acetaminophen < 5.0 ug/mL L ug/ mL (10-30) Ur Barbiturates Sc reen Negative ng/mL ng /mL (Negative) Ur Phencyclidine S crn Negative ng/mL ng /mL (Negative) Ur Amphetamines Sc reen Negative ng/mL ng /mL (Negative) U Benzodiazepines Scrn Positive ng/mL H ng/mL (Negative) Urine Cocaine Scre en Negative ng/mL ng /mL (Negative) U Marijuana (THC) Screen Negative ng/mL ng /mL (Negative) Ethyl Alcohol < 10 mg/dL mg/dL (0-10) SARS-CoV-2 Ag (Rap id) 06/22/21 06/22/21 22:04 22:04 WBC RBC Hgb Hct MCV MCH MCHC RDW Plt Count MPV Neut % (Auto) Lymph % (Auto) Benzie % (Auto) Eos % (Auto) Baso % (Auto) Neut # (Auto) Lymph # (Auto) Benzie # (Auto) Eos # (Auto) Baso # (Auto) Nucleated RBC % (a uto) Nucleated RBCs # Sodium Potassium Chloride Carbon Dioxide Anion Gap BUN Creatinine GFR Calculation Glucose Calculated Osmolal ity Calcium Total Bilirubin AST ALT Alkaline Phosphata se Total Protein Albumin Globulin HCG, Qual Negative (Negative) Salicylates Urine Opiates Scre en Acetaminophen Ur Barbiturates Sc reen Ur Phencyclidine S crn Ur Amphetamines Sc reen U Benzodiazepines Scrn Urine Cocaine Scre en U Marijuana (THC) Screen Ethyl Alcohol SARS-CoV-2 Ag (Rap id) Negative (Negative) Discharge Plan Discharge Patient Disposition: Admitted As Inpatient Admit Provider: Marck Gillis Clinical Impression: Involuntary commitment Psychosis Qualifiers: Psychosis type: other Qualified Code(s): F28 - Other psychotic disorder not due to a substance or known physiological condition Condition: Stable Discharge Diet: Regular Discharge Activity: Resume usual activity Coding Level of Care Code ED Managed Care Coordinator for Chg Fwd Exam Expanded Problem Focused Documented by User: Quentin Sahni MD 06/30/21 19:08 HPI - Psych General: Chief Complaint: Psychiatric Symptoms Stated Complaint: court order 96 Time Seen by Provider: 06/22/21 19:27 [facility] PFSH: Medical History (Updated 06/27/21 @ 00:00 by ) Abnormal EKG Abscess of skin of abdomen Alcohol use disorder, severe, dependence Allergic atopic asthma without complication Allergic rhinitis Anxiety Asthma Atypical chest pain Bee sting allergy Bilateral knee pain Declined smoking cessation OROSCO (dyspnea on exertion) Dyslipidemia Essential (primary) hypertension Head lice Major depressive disorder, recurrent, moderate Mixed hyperlipidemia Right knee pain Right shoulder pain Smoking addiction Vitamin D insufficiency Surgical History History of cholecystectomy History of tubal ligation Family History Family/Other CAD (coronary artery disease) Cancer Lung disease Father CAD (coronary artery disease) Lung disease Grandmother Cancer Mother Chronic kidney disease (CKD) Diabetes Stroke Grandfather Diabetes Daughter Lung disease Other Hypertension Denies family history of Clotting disorder Dementia Suicide Anesthesia complication Bleeding disorder Social History Smoking and tobacco status: current every day smoker cigarettes Packs smoked per day: 0.5 Years cigarettes smoked: 17 Quit status (tobacco): has tried quititng Number of times tried to quit tobacco: 2 Second hand smoke exposure: Yes Smoking risk assessment/counseling performed?: Yes Alcohol intake: current Alcohol intake frequency: few times a month Desire information about alcohol rehabilitation?: No Desire information about substance/drug rehabilitation?: No Counseling given: Yes Last substance use date: 06/11/19 Caregiver/support person: No Lives independently: Yes Household members: spouse Marital status: Number of children: 4 service: No Current occupational status: unemployed History of recent travel: No Current gender identity: Female Course Vital Signs: Vital signs: Vital Signs Temperature 97.5 F L 06/26/21 06:00 Pulse Rate 91 06/26/21 08:21 Respiratory Rate 18 06/26/21 08:21 Blood Pressure 108/77 06/26/21 08:21 Pulse Oximetry 97 06/26/21 08:21 MDM - Psych MDM Narrative: Medical decision making narrative: I discussed this case with ROSALBA Ervin. I have reviewed documentation. I personally evaluated the patient and reperformed dan portions of E/M. Patient is on 96-hour hold and requires laboratory studies for medical clearance. Patient did not end up requiring IM Versed and did allow us to obtain laboratory studies. I have reviewed the studies. Based on ED evaluation there is no obvious condition that would preclude the patient from inpatient management of psychiatric concerns. Quentin Sahni MD Emergency Medicine Lab Data: Labs: Lab Results 06/22/21 06/22/21 06/22/21 20:55 22:04 22:04 WBC 5.9 10^3/uL 10^3/ uL (4.0-10.0) RBC 4.55 10^6/uL 10^6 /uL (4.1-5.3) Hgb 14.2 g/dL g/dL (11.5-15.3) Hct 42.9 % % (37.0-47.0) MCV 94.3 fl fl (81-99) MCH 31.2 pg pg (28.0-34.0) MCHC 33.1 g/dL g/dL (30.0-36.0) RDW 12.8 % % (12.1-15.1) Plt Count 158 10^3/cmm 10^3 /cmm (130-400) MPV 12.1 fL H fL (7.4-10.4) Neut % (Auto) 47.2 % % Lymph % (Auto) 42.1 % % Benzie % (Auto) 7.4 % % Eos % (Auto) 2.5 % % Baso % (Auto) 0.5 % % Neut # (Auto) 2.78 10^3/uL 10^3 /uL (1.8-7.7) Lymph # (Auto) 2.5 10^3/uL 10^3/ uL (0.8-4.8) Benzie # (Auto) 0.4 10^3/uL 10^3/ uL (0.2-0.9) Eos # (Auto) 0.2 10^3/uL 10^3/ uL (0.0-0.8) Baso # (Auto) 0.0 10^3/uL 10^3/ uL (0.0-0.1) Nucleated RBC % (a uto) 0 % % Nucleated RBCs # 0.0 /100WBC /100W BC Sodium 144 mmol/L mmol/L (136-145) Potassium 4.3 mmol/L mmol/L (3.5-5.1) Chloride 105 mmol/L mmol/L (98-107) Carbon Dioxide 29 mmol/L mmol/L (22-29) Anion Gap 14.3 (5-19) BUN 13 mg/dL mg/dL (6-20) Creatinine 0.7 mg/dL mg/dL (0.5-0.9) GFR Calculation 94.2 mL/min mL/mi n (90-130) Glucose 92 mg/dL mg/dL (65-115) Calculated Osmolal ity 298 mOsm/kg H mOs m/kg (285-295) Calcium 9.1 mg/dL mg/dL (8.5-10.5) Total Bilirubin 0.6 mg/dL mg/dL (0.15-1.2) AST 17 U/L U/L (0-32) ALT 17 U/L U/L (0-33) Alkaline Phosphata se 59 IU/L IU/L (35-105) Total Protein 6.3 g/dL L g/dL (6.6-8.7) Albumin 4.0 g/dL g/dL (3.5-5.2) Globulin 2.3 g/dL g/dL (1.3-4.6) HCG, Qual Salicylates < 0.3 mg/dL L mg/ dL (3-10) Urine Opiates Scre en Negative ng/mL ng /mL (Negative) Acetaminophen < 5.0 ug/mL L ug/ mL (10-30) Ur Barbiturates Sc reen Negative ng/mL ng /mL (Negative) Ur Phencyclidine S crn Negative ng/mL ng /mL (Negative) Ur Amphetamines Sc reen Negative ng/mL ng /mL (Negative) U Benzodiazepines Scrn Positive ng/mL H ng/mL (Negative) Urine Cocaine Scre en Negative ng/mL ng /mL (Negative) U Marijuana (THC) Screen Negative ng/mL ng /mL (Negative) Ethyl Alcohol < 10 mg/dL mg/dL (0-10) SARS-CoV-2 Ag (Rap id) 06/22/21 06/22/21 22:04 22:04 WBC RBC Hgb Hct MCV MCH MCHC RDW Plt Count MPV Neut % (Auto) Lymph % (Auto) Benzie % (Auto) Eos % (Auto) Baso % (Auto) Neut # (Auto) Lymph # (Auto) Benzie # (Auto) Eos # (Auto) Baso # (Auto) Nucleated RBC % (a uto) Nucleated RBCs # Sodium Potassium Chloride Carbon Dioxide Anion Gap BUN Creatinine GFR Calculation Glucose Calculated Osmolal ity Calcium Total Bilirubin AST ALT Alkaline Phosphata se Total Protein Albumin Globulin HCG, Qual Negative (Negative) Salicylates Urine Opiates Scre en Acetaminophen Ur Barbiturates Sc reen Ur Phencyclidine S crn Ur Amphetamines Sc reen U Benzodiazepines Scrn Urine Cocaine Scre en U Marijuana (THC) Screen Ethyl Alcohol SARS-CoV-2 Ag (Rap id) Negative (Negative) Discharge Plan Discharge Patient Disposition: Admitted As Inpatient Admit Provider: Marck Gillis Clinical Impression: Involuntary commitment Psychosis Qualifiers: Psychosis type: other Qualified Code(s): F28 - Other psychotic disorder not due to a substance or known physiological condition Condition: Stable Discharge Diet: Regular Discharge Activity: Resume usual activity Coding Level of Care Code ED Managed Care Coordinator for Ricardo Fwd Exam Expanded Problem Focused
--- NOTE | 2021-06-22 20:00 | PC.NURSE ---
attempted blood draw. patient refusing at this time.
--- NOTE | 2021-06-22 21:00 | PC.NURSE ---
patient told sitting she would allow blood draw. after going to room to do so patient refusing again after placing tourniquet in place. she removed the tourniquet.
[2021-06-22 21:30] LABS: Amphetamines Screen Urine Negative (Negative); Barbiturates Screen Urine Negative (Negative); Benzodiazepines Screen Urine Positive (Negative); Cocaine Screen Urine Negative (Negative); Opiate Screen Urine Negative (Negative); PCP Screen Urine Negative (Negative); THC Screen Urine Negative (Negative)
--- NOTE | 2021-06-22 21:30 | PC.NURSE ---
called to room again stating she would give blood. she again removed tourniquet and refused stating the needle has poison on it.
--- NOTE | 2021-06-22 22:00 | PC.NURSE ---
informed patient we were giving her an injection to help calm her and then draw blood. she refused the injection. she was informed she since she is on court order she can not refuse to give blood. she was given a choice to receive the injection and then blood draw or simply have blood draw. She agreed to blood draw. Nurse Arnold and myself along with security assisted with the lab draw.
[2021-06-22 22:12] LABS: Basophils % 0.5 %; Eosinophils # 0.2 10^3/uL (0.0-0.8); Eosinophils % 2.5 %; Hematocrit 42.9 % (37.0-47.0); Hemoglobin 14.2 g/dL (11.5-15.3); Lymphocytes # 2.5 10^3/uL (0.8-4.8); Lymphocytes % 42.1 %; Mean Corpuscular HGB Conc 33.1 g/dL (30.0-36.0); Mean Corpuscular Hemoglobin 31.2 pg (28.0-34.0); Mean Corpuscular Volume 94.3 fl (81-99); Mean Platelet Volume 12.1 fL (7.4-10.4); Monocytes # 0.4 10^3/uL (0.2-0.9); Monocytes % 7.4 %; Neutrophils # 2.78 10^3/uL (1.8-7.7); Neutrophils % 47.2 %; Nucleated Red Blood Cells % 0 %; Platelet Count 158 10^3/cmm (130-400); Red Blood Count 4.55 10^6/uL (4.1-5.3); Red Cell Distribution Width 12.8 % (12.1-15.1); White Blood Count 5.9 10^3/uL (4.0-10.0)
[2021-06-22 22:27] LABS: HCG, Serum Qual Negative (Negative)
[2021-06-22 22:35] LABS: SARS Covid-2 Antigen Negative (Negative)
[2021-06-22 22:36] LABS: Anion Gap 14.3 (5-19); Blood Urea Nitrogen 13 mg/dL (6-20); Carbon Dioxide 29 mmol/L (22-29); Chloride 105 mmol/L (98-107); Glomerular Filtration Rate 94.2 mL/min (90-130); Glucose 92 mg/dL (65-115); Potassium 4.3 mmol/L (3.5-5.1); Sodium 144 mmol/L (136-145)
[2021-06-22 22:37] LABS: Alanine Aminotransferase 17 U/L (0-33); Alkaline Phosphatase 59 IU/L (35-105); Aspartate Amino Transferase 17 U/L (0-32); Calcium 9.1 mg/dL (8.5-10.5); Globulin 2.3 g/dL (1.3-4.6); Osmolality Calculated 298 mOsm/kg (285-295); Total Bilirubin 0.6 mg/dL (0.15-1.2); Total Protein 6.3 g/dL (6.6-8.7)
[2021-06-22 22:47] LABS: Acetaminophen < 5.0 ug/mL (10-30); Alcohol Level < 10 mg/dL (0-10); Salicylate < 0.3 mg/dL (3-10)
[2021-06-23] MEDS: LORazepam 2 mg/mL INJ 1 mL IM (00:50)
[2021-06-23 00:59] VITALS: BP 112/76; PULSE 93; RESP 17; O2SAT 97
[2021-06-23 02:13] VITALS: BP 110/76; PULSE 90; RESP 17; TEMP 36.6; O2SAT 97
[2021-06-23 05:34] VITALS: BP 98/62; PULSE 61; RESP 17; TEMP 36.9; O2SAT 98
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
[2021-06-23] MEDS: nicotine 2 mg Gum BUCCAL (10:20)
--- NOTE | 2021-06-23 10:30 | ECG_ITS ---
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
--- NOTE | 2021-06-23 10:32 | PC.NURSE ---
PATIENT PRESENTED AT NURSES STATION C/O CHEST PAIN, RATING IT A 5. REPORTS ITS A SHARP PAIN. REPORTS SHE HAD ONE 3 YEARS AGO. PATIENT DORS NOT APPEAR IN DISTRESS. DENIES ANY OTHER SYMPTOMS. BP 95/67 HR 82 O2 SAT 97 TEMP 97.1 PHYSICIAN NOTIFIED. SEE ORDERS
[2021-06-23 13:02] VITALS: BP 102/80; PULSE 73; RESP 17; TEMP 36.3; O2SAT 99
[2021-06-23 20:50] VITALS: BP 100/74; PULSE 78; RESP 16; TEMP 36.2; O2SAT 96
[2021-06-24 05:53] VITALS: BP 100/67; PULSE 72; RESP 17; TEMP 36.9; O2SAT 96
--- NOTE | 2021-06-24 09:22 | P.NPUPN_ITS ---
Subjective NPU Subjective: Interval history: He says that she slept relatively well last night. Nurses report that she is pacing a lot and seems quite paranoid. She did not eat breakfast this morning. She still thinks that the needle that they were going to draw her blood with in the emergency room was poisoned. She is still reluctant to admit that she thinks back. She mostly blames it on not liking needles. She does not have an explanation about why they would do that but she just does not trust people. She continues to feel that she does not need any medication and will not take any. Mental Status Exam MSE Comments: A 36-year-old appropriate weight female who appears older than her stated age. She is dressed in hospital scrubs and is in no acute distress. Grooming is adequate psychomotor activity is normal. Speech is at a regular rate and rhythm, normal volume, good articulation, not pressured. Alert, oriented X3 Attention and concentration appears to be intact. Memory is intact Mood is good. Affect is mildly dysphoric. Thought process is logical and goal-directed. Thought content: Denies auditory and visual hallucinations. She did not express any delusional material today other than that she still thinks that the needle that they used to call blood in the emergency room was poisoned. No current suicidal ideation, and no homicidal ideation. Fund of knowledge is appears to be average. Insight and judgment appear to be poor. Impulse control is poor. Cognition: Patient Appearance: Appears Older than Age Level of Consciousness: Awake and Alert Patient Cognition Impaired: No Ability to Follow Directions: Good Patient Orientation (long list): Person, Place, Time, Name, Age, Birthday, Month and Year Comprehension Ability: No Impairment Hallucination Type: None Delusion Description: Somatic Thought Process: Disorganized and Loose Associations Affect: Affect Description: Calm and Guarded Behavior: Patient Behavior: Cooperative Speech Pattern: Clear Vitals/I&O/Wt Last Vital Signs Temp 98.4 F 06/24/21 05:53 Pulse 72 06/24/21 05:53 Resp 17 06/24/21 05:53 BP 100/67 06/24/21 05:53 Pulse Ox 96 06/24/21 05:53 Weight last 48 hrs Weight 77.02 kg Data NPU : 06/22/21 22:04 06/22/21 22:04 A&P Assessment and plan (1) Psychosis: Status: Acute Qualifiers: Psychosis type: other Qualified Code(s): F28 - Other psychotic disorder not due to a substance or known physiological condition (2) History of alcohol abuse: Status: Chronic (3) History of intravenous drug abuse: Status: Chronic (4) RLS (restless legs syndrome): Status: Chronic (5) GERD (gastroesophageal reflux disease): Status: Chronic Qualifiers: Esophagitis presence: esophagitis presence not specified Qualified Code(s): K21.9 - Gastro-esophageal reflux disease without esophagitis (6) Cannabis use disorder, moderate, dependence: Status: Chronic (7) Post-traumatic stress disorder, chronic: Status: Chronic (8) Anxiety: Status: Chronic (9) Essential (primary) hypertension: Status: Chronic (10) Mixed hyperlipidemia: Status: Chronic Additional A&P Information This is a 36-year-old female who was admitted here last March with some psychosis that resolved without medications. She is presenting again paranoid and delusional with an affidavit from her aunt that describes many bizarre behaviors. Plan: 1. She refuses medications. We will continue to offer. 2. Continue every 15 minute checks for safety. 3. Encourage individual, group and milieu therapies. 4. Encourage sober living treatment after discharge at the highest level of care to which she is willing to commit. 5. We will monitor for safety for herself in the community prior to discharge. Involuntary Hold Information 96 Hour Hold: 96 Hour Involuntary Admission: Yes 96 Hour Hold Ending Date: 06/28/21 96 Hour Hold Ending Time: 18:54 Attestations U Medical Necessity Statement*: Inpatient hospitalization is medically necessary and the clinically appropriate intervention at this time. We will initiate medications and make changes as indicated. Coding Level of Care Code Acute Obstetrics Scrub Nurse for Anneg Fwd Diagnoses Psychosis F28 Psychosis type: other History of alcohol abuse F10.11 History of intravenous drug abuse F19.11 RLS (restless legs syndrome) G25.81 GERD (gastroesophageal reflux disease) K21.9 Esophagitis presence: esophagitis presence not specified Cannabis use disorder, moderate, dependence F12.20 Post-traumatic stress disorder, chronic F43.12 Anxiety F41.9 Essential (primary) hypertension I10 Mixed hyperlipidemia E78.2
[2021-06-24 14:00] VITALS: BP 100/74; PULSE 106; RESP 18; TEMP 36.5; O2SAT 95
[2021-06-24 20:31] VITALS: BP 97/76; PULSE 93; RESP 16; TEMP 36.4; O2SAT 93
[2021-06-25 06:00] VITALS: BP 97/76; PULSE 93; RESP 16; TEMP 36.4; O2SAT 93; BMI 26.6
[2021-06-25 07:40] VITALS: BP 105/75; PULSE 80; RESP 18; O2SAT 94
--- NOTE | 2021-06-25 08:32 | W.PM.NPUPNS ---
Subjective NPU Subjective: Interval history: He said today she is doing well. She seems to be a little bit better mood today. The nurses said that she paces in her room and talks to herself. She says that is her normal activity. She has not exhibited other paranoia as far as the nurses report. She says that she slept well. She said that she is eating well. Mental Status Exam MSE Comments: A 36-year-old appropriate weight female who appears older than her stated age. She is dressed in hospital scrubs and is in no acute distress. Grooming is adequate psychomotor activity is normal. Speech is at a regular rate and rhythm, normal volume, good articulation, not pressured. Alert, oriented X3 Attention and concentration appears to be intact. Memory is intact Mood is good. Affect is mildly dysphoric. Thought process is logical and goal-directed. Thought content: Denies auditory and visual hallucinations. She did not express any delusional material today other than that she still thinks that the needle that they used to call blood in the emergency room was poisoned. No current suicidal ideation, and no homicidal ideation. Fund of knowledge is appears to be average. Insight and judgment appear to be poor. Impulse control is poor. Cognition: Patient Appearance: Appears Older than Age Level of Consciousness: Awake and Alert Patient Cognition Impaired: No Ability to Follow Directions: Good Patient Orientation (long list): Person, Place, Time, Name, Age, Birthday, Month and Year Comprehension Ability: No Impairment Hallucination Type: None Delusion Description: Somatic Thought Process: Disorganized and Loose Associations Affect: Affect Description: Appropriate and Calm Behavior: Patient Behavior: Appropriate and Cooperative Speech Pattern: Appropriate and Clear Vitals/I&O/Wt Last Vital Signs Temp 97.6 F 06/25/21 06:00 Pulse 80 06/25/21 07:40 Resp 18 06/25/21 07:40 BP 105/75 06/25/21 07:40 Pulse Ox 94 06/25/21 07:40 Weight last 48 hrs Weight 77.02 kg Data NPU : 06/22/21 22:04 06/22/21 22:04 A&P Assessment and plan (1) Psychosis: Status: Acute Qualifiers: Psychosis type: other Qualified Code(s): F28 - Other psychotic disorder not due to a substance or known physiological condition (2) History of alcohol abuse: Status: Chronic (3) History of intravenous drug abuse: Status: Chronic (4) RLS (restless legs syndrome): Status: Chronic (5) GERD (gastroesophageal reflux disease): Status: Chronic Qualifiers: Esophagitis presence: esophagitis presence not specified Qualified Code(s): K21.9 - Gastro-esophageal reflux disease without esophagitis (6) Cannabis use disorder, moderate, dependence: Status: Chronic (7) Post-traumatic stress disorder, chronic: Status: Chronic (8) Anxiety: Status: Chronic (9) Essential (primary) hypertension: Status: Chronic (10) Mixed hyperlipidemia: Status: Chronic Additional A&P Information This is a 36-year-old female who was admitted here last March with some psychosis that resolved without medications. She is presenting again paranoid and delusional with an affidavit from her aunt that describes many bizarre behaviors. Plan: 1. She refuses medications. We will continue to offer. 2. Continue every 15 minute checks for safety. 3. Encourage individual, group and milieu therapies. 4. Encourage sober living treatment after discharge at the highest level of care to which she is willing to commit. 5. We will monitor for safety for herself in the community prior to discharge. Involuntary Hold Information 96 Hour Hold: 96 Hour Involuntary Admission: Yes 96 Hour Hold Ending Date: 06/28/21 96 Hour Hold Ending Time: 18:54 Attestations U Medical Necessity Statement*: Inpatient hospitalization is medically necessary and the clinically appropriate intervention at this time. We will initiate medications and make changes as indicated. 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
[2021-06-25 13:58] VITALS: BP 105/75; PULSE 80; RESP 18; TEMP 36.4; O2SAT 94
[2021-06-25 21:05] VITALS: BP 112/81; PULSE 99; RESP 19; TEMP 36.4; O2SAT 97
[2021-06-26 06:00] VITALS: BP 112/81; PULSE 99; RESP 19; TEMP 36.4; O2SAT 97
[2021-06-26 06:30] VITALS: BP 108/77; PULSE 91; RESP 18; O2SAT 97
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
[2021-06-26 08:21] VITALS: BP 108/77; PULSE 91; RESP 18; O2SAT 97
== END 2021-06-26 09:05 | disposition home or self-care (01) | DRG 885 ==
LOC: ER 22:41 → NP 23:09
PROVIDERS: Admitting Provider Psychiatry & Neurology Psychiatry; Emergency Provider Physician Assistant; PCP Nurse Practitioner Family; Visit Provider Psychiatry & Neurology Psychiatry
DX: F28 Other psychotic disorder not due to a substance or known physiological condition (principal); F33.9 Major depressive disorder, recurrent, unspecified; F10.10 Alcohol abuse, uncomplicated; F41.9 Anxiety disorder, unspecified; J45.909 Unspecified asthma, uncomplicated; E78.2 Mixed hyperlipidemia; I10 Essential (primary) hypertension; F17.210 Nicotine dependence, cigarettes, uncomplicated; G25.81 Restless legs syndrome; K21.9 Gastro-esophageal reflux disease without esophagitis; F12.20 Cannabis dependence, uncomplicated; F43.12 Post-traumatic stress disorder, chronic
CPT/HCPCS: 80053; 80306; 80307; 84703; 85025; 87426; 93005; 96372; 97150; 97165; 99285; J2060

== ENCOUNTER 2022-09-25 08:39 | Inpatient (IN) | payer MEDICAID, SELFPAY ==
[2022-09-25] VITALS (7 sets, daily range): BP systolic 114–133; BP diastolic 79–99; PULSE 78–80; RESP 14–18; TEMP 36.4–36.7; O2SAT 96–99; BMI 23.5; BMI 23.8
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
--- NOTE | 2022-09-25 09:42 | PC.PHAR ---
unable to verify meds with pt-when pt was asked if she has any allergies,name and she states nothin then when asked if she takes any meds or otc meds she states nothin -no meds pull up on ext med history
[2022-09-25 10:57] LABS: Basophils # 0.1 10^3/uL (0.0-0.1); Basophils % 0.9 %; Eosinophils # 0.5 10^3/uL (0.0-0.8); Eosinophils % 9.2 %; Hematocrit 46.5 % (37.0-47.0); Hemoglobin 15.4 g/dL (11.5-15.3); Lymphocytes # 1.5 10^3/uL (0.8-4.8); Lymphocytes % 27.1 %; Mean Corpuscular HGB Conc 33.1 g/dL (30.0-36.0); Mean Corpuscular Hemoglobin 31.2 pg (28.0-34.0); Mean Corpuscular Volume 94.3 fl (81-99); Mean Platelet Volume 9.7 fL (7.4-10.4); Monocytes # 0.5 10^3/uL (0.2-0.9); Neutrophils # 2.97 10^3/uL (1.8-7.7); Neutrophils % 53.3 %; Nucleated Red Blood Cells % 0 %; Platelet Count 168 10^3/cmm (130-400); Red Blood Count 4.93 10^6/uL (4.1-5.3); Red Cell Distribution Width 12.2 % (12.1-15.1); White Blood Count 5.6 10^3/uL (4.0-10.0)
[2022-09-25 11:16] LABS: HCG, Serum Qual Negative (Negative)
[2022-09-25 11:24] LABS: Alanine Aminotransferase 153 U/L (0-33); Albumin Level 4.1 g/dL (3.5-5.2); Alkaline Phosphatase 81 U/L (35-105); Anion Gap 16.9 (5-19); Aspartate Amino Transferase 350 U/L (0-32); Blood Urea Nitrogen 11 mg/dL (6-20); Carbon Dioxide 24 mmol/L (22-29); Chloride 97 mmol/L (98-107); Globulin 3.2 g/dL (1.3-4.6); Glomerular Filtration Rate 111.9 mL/min (90-130); Glucose 76 mg/dL (65-115); Osmolality Calculated 276 mOsm/kg (285-295); Potassium 3.9 mmol/L (3.5-5.1); Sodium 134 mmol/L (136-145); Total Bilirubin 2.4 mg/dL (0.15-1.2); Total Protein 7.3 g/dL (6.6-8.7)
[2022-09-25 11:25] LABS: Acetaminophen < 5.0 ug/mL (10-30); Alcohol Level < 10 mg/dL (0-10); Salicylate < 0.3 mg/dL (3-10)
--- NOTE | 2022-09-25 11:59 | CT_ITS ---
WS: [id number] CT ABDOMEN AND PELVIS NONCONTRAST HISTORY: abd pain TECHNIQUE: Imaging performed through the abdomen and pelvis. Coronal and sagittal reformats are submi tted. All CT scans at [facility] use at least one of these dose optimization techniques: auto mated exposure control; mA and/or kV adjustment per patient size (includes targeted exams where dose is matched to clinical indication); or iterative reconstruction. DLP: 665.01 mGy.cm COMPARISON: None available. Lower thorax: Lung bases are clear. Visualized heart is normal. No hiatal hernia. Liver: Streak artifact from the patient's arms. No abnormality. Gallbladder: Prior cholecystectomy. Pancreas: Streak artifact but no abnormality seen. Spleen: Normal. Adrenal glands: Normal. No mass. Right kidney: Normal size kidney with no mass or hydronephrosis. Minimal prominence of the renal pelv is is probably an extrarenal pelvis. Left kidney: Normal size kidney with no mass or hydronephrosis. Aorta: Mild atherosclerosis abdominal aorta with no aneurysm. No free fluid, intraperitoneal air or significant lymphadenopathy. GI tract: Normal noncontrast imaging of the stomach, small bowel and colon. No obstruction or wall th ickening. Normal appendix. Abdominal wall: Negative. No hernia. Pelvis: Normal. Osseous structures: Unremarkable. CT/CT abdomen pelvis wo con [id number] IMPRESSION: 1. Very minimal prominence of the RIGHT renal pelvis. No stones identified. Th is may be an extrarenal pelvis. No calyceal dilatation. 2. Normal appendix. 3. No free fluid.
[2022-09-25 12:07] LABS: Ammonia 49 umol/L (11-51)
[2022-09-25 12:11] LABS: INR 0.87 (0.8-1.2)
[2022-09-25 12:12] LABS: Partial Thromboplastin Time 25.6 SECONDS (23.9-36.7)
[2022-09-25 12:54] LABS: Hepatitis A Antibody IgM Non-Reactive (Nonreactive); Hepatitis B Core IgM Non-Reactive (Nonreactive); Hepatitis B Surface Antigen Non-Reactive (Nonreactive); Hepatitis C Virus Antibody Reactive (Nonreactive)
[2022-09-25] MEDS: LORazepam 2 mg/mL INJ 1 mL IM (13:32)
[2022-09-25] MEDS: ziprasidone 20 mg/mL SDV IM (13:32)
[2022-09-25 14:15] LABS: Urine Appearance Cloudy (CLEAR); Urine Color Yellow (Yellow); pH Urine 5 (5-7)
[2022-09-25 14:16] LABS: Add Urine Microscopic? YES; Bilirubin Urine 2+ (Negative); Blood Urine 3+ (Negative); Glucose Urine UA Trace (Normal); Ketones Urine 1+ (Negative); Leukocyte Esterase Urine 2+ (Negative); Nitrate Urine Negative (Negative); Protein Urine Trace (Negative); Specific Gravity, Urine 1.025 (1.005-1.030); Urobilinogen Urine 4+ mg/dL (Negative)
[2022-09-25 14:19] LABS: Amphetamines Screen Urine Negative (Negative); Barbiturates Screen Urine Negative (Negative); Benzodiazepines Screen Urine Negative (Negative); Cocaine Screen Urine Negative (Negative); Opiate Screen Urine Negative (Negative); PCP Screen Urine Negative (Negative); THC Screen Urine Negative (Negative)
[2022-09-25 14:27] LABS: Amorphous Sediment Urine 2+ /hpf; Bacteria Urine 2+ /hpf; RBC Urine 0-4 /hpf (0-2); Squamous Epithelial Cell Urine 0-4 /hpf (0-5); WBC Urine 0-4 /hpf (0-5)
[2022-09-25 14:28] LABS: Add Urine Culture? Yes
[2022-09-25] MEDS: permethrin lotion 59 mL Btl 1 APPLIC TOPICAL ×2 (16:50→23:47)
--- NOTE | 2022-09-26 | PC.NURSE ---
Physician Communication Upon assessment, patient's head covered with lice with additional lice crawling on her pillow, shoulders, and bed. Patient slightly lethargic, able to open eyes to verbal command as well as follow commands, patient fell asleep in between requests. Furthermore, patient's UA resulted with 2+ bacteria and 3+ blood in her urine. While awake, patient refused all PO medications stating she could not take pills. At about 2215, Dr. Puentes notified of assessment and refusal of medication; order received to contact Dr. Forbes. Dr. Forbes contacted and instructions received to contact Dr. Puentes for consult; Dr. Puentes contacted again. Orders placed by Dr. Forbes for PO cefdinir. Dr. Forbes at bedside at 2330 and made aware of lethargy, lice infestation, in addition to blister on left heel and cut in patient bottom lip. Verbal order received for second primethrin treatment due to copious amounts of live lice still remaining in patient's hair; no further orders received.
--- NOTE | 2022-09-26 00:30 | PM.CONSULT ---
Providers/Reason For Consult Consulting Physician/Specialty*: Psychiatry Reason for Consult*: Head lice, UTI, hep C, elevated liver function Attending Physician: Herminio Puentes MD History of Present Illness History of Present Illness Yessica Vasquez is a 37 year old female with a history of IV drug abuse, history of alcohol abuse, history of GERD, restless leg syndrome, cannabis use disorder, hypertension, hyperlipidemia, who presents [facility] due to concerns for psychosis, brought in by law enforcement, having hallucinations, patient was going to move to neuropsychiatric unit, but was found to have head lice, so moved to ICU, due to concerns for spread. Her hep C was positive with elevated T. bili, liver functions, CT scan abdomen pelvis no acute finding. Hospitalist team was called as patient continues to have active head lice after treatment with permethrin. There was concerns for UTI. I was told by nursing staff in the ICU that she was treated with permethrin, yesterday, in the morning, however she continues to have active lice in her head. On examination frankly she has lice everywhere, including all over the bed, has nits, there are active. I am not sure how the permethrin was administered. She is alert and awake, she remains quiet, during my questions, only answers basic yes or no questions, but falls back asleep, she has received Geodon. She has no complaints, denies any chest pain, denies any shortness of breath, denies any dysuria when I told her she has hep C, she did not ask any questions Medications/Allergies Home Medications Medication Instructions Recorded Confirmed Last Taken Type Unable to Assess 09/25/22 09/25/22 Unknown History Allergies Allergy/AdvReac Type Severity Reaction Status Date / Time bee venom protein (honey bee) Allergy Intermediate racing Verified 10/13/20 08:55 heart, throwing up morphine AdvReac Intermediate N & V Verified 10/13/20 08:55 Current Medications Generic Name Dose Route Start Last Admin Trade Name Freq PRN Reason Stop Dose Admin Olanzapine 20 mg 09/25/22 21:11 09/25/22 22:15 Olanzapine 10 Mg Odt PO Not Given BEDTIME KATHRIN PFSH Acute PFSH: Medical History Abnormal EKG Abscess of skin of abdomen Alcohol use disorder, severe, dependence Allergic atopic asthma without complication Allergic rhinitis Anxiety Asthma Atypical chest pain Bee sting allergy Bilateral knee pain Declined smoking cessation OROSCO (dyspnea on exertion) Dyslipidemia Essential (primary) hypertension Head lice Major depressive disorder, recurrent, moderate Mixed hyperlipidemia Right knee pain Right shoulder pain Smoking addiction Vitamin D insufficiency Surgical History History of cholecystectomy History of tubal ligation Family History Family/Other CAD (coronary artery disease) Cancer Lung disease Father CAD (coronary artery disease) Lung disease Grandmother Cancer Mother Chronic kidney disease (CKD) Diabetes Stroke Grandfather Diabetes Daughter Lung disease Other Hypertension Denies family history of Clotting disorder Dementia Suicide Anesthesia complication Bleeding disorder Social History Smoking and tobacco status: current every day smoker cigarettes Packs smoked per day: 0.5 Years cigarettes smoked: 17 Quit status (tobacco): has tried quititng Number of times tried to quit tobacco: 2 Second hand smoke exposure: Yes Smoking risk assessment/counseling performed?: Yes Alcohol intake: current Alcohol intake frequency: few times a month Desire information about alcohol rehabilitation?: No Desire information about substance/drug rehabilitation?: No Counseling given: Yes Last substance use date: 06/11/19 Caregiver/support person: No Lives independently: Yes Household members: spouse Marital status: Number of children: 4 service: No Current occupational status: unemployed Current gender identity: Female Vitals/I&O/Wt Last Vital Signs Temp 97.6 F 09/25/22 20:57 Pulse 80 09/25/22 20:57 Resp 14 09/25/22 20:57 BP 133/99 09/25/22 21:15 Pulse Ox 99 09/25/22 20:57 O2 Del Method Room Air 09/25/22 21:11 Weight last 48 hrs Weight 69.037 kg Weight 68.039 kg Physical Exam Const: COMMON NORMALS: no acute distress ORIENTATION/CONSCIOUSNESS: Yes awake and Yes oriented to person Eye: COMMON NORMALS: Equal, round and reactive pupils present PUPIL: Yes Equal, round and reactive pupils present Resp: COMMON NORMALS: normal respiratory effort, No retractions, No use of accessory muscles and clear to auscultation bilaterally AUSCULTATION: clear to auscultation bilaterally Cardio: COMMON NORMALS: regular rate, regular rhythm, S1 normal heart sound present and S2 normal heart sound present RATE: regular rate RHYTHM: regular rhythm HEART SOUNDS: S1 normal heart sound present and S2 normal heart sound present GI: COMMON NORMALS: Normal to inspection, nondistended, normoactive bowel sounds present and non-tender Extremity: COMMON NORMALS: no pedal edema Neuro: SENSORIUM/ORIENTATION: Yes oriented to person Data 09/25/22 10:51 09/25/22 10:51 A&P Assessment and plan (1) Head lice: (2) Hepatitis C: (3) Urinary tract infection: Consult Attestations Medical Necessity Statement: Hepatitis C acute versus chronic -With elevated T. bili, LFTs -We will recheck this morning History of alcoholism, could also explain AST greater than ALT Recurrent head lice, not sure how she was treated with permethrin in the emergency room, but will give her treatment here in the ICU due to active head lice UTI, cefdinir Diagnoses Head lice B85.0 Hepatitis C B19.20 Urinary tract infection N39.0
--- NOTE | 2022-09-26 01:40 | PC.NURSE ---
Refusal of medication Patient once again refused PO medication, stating that she could not take pills because she is the Lord and the Lord does not take pills. 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 Dr. Forbes notified of refusal; order received to retime PO cefdinir for 0900. Medication scheduled for 0900.
[2022-09-26 02:00] VITALS: BP 108/75; PULSE 88; O2SAT 98
[2022-09-26 02:17] LABS: HIV 1 & 2 Antibody Non-Reactive (Non-Reactiv); HIV 1 & 2 Antigen Non-Reactive (Non-Reactiv)
[2022-09-26 03:44] VITALS: BP 103/71; PULSE 92; RESP 18; TEMP 36.4; O2SAT 98
--- NOTE | 2022-09-26 04:13 | PC.NURSE ---
0335-pt admitted from ICU for psychosis. arrived anxious and very paranoid. answered a few basic questions and then abruptly stated she was tired and did not want to answer any more questions. pt refused to change out of paper scrubs but did allow this staff to look at the skin. no issues were noted. she does have an infestation of head lice that she was treated for in the ED and on the ICU unit. states she does not take medications at home. denies si hi avh. a/o x 1. will continue to monitor.
[2022-09-26 06:00] VITALS: RESP 16
[2022-09-26 09:02] LABS: Basophils % 0.8 %; Eosinophils # 0.6 10^3/uL (0.0-0.8); Eosinophils % 10.8 %; Hematocrit 49.3 % (37.0-47.0); Hemoglobin 16.4 g/dL (11.5-15.3); Lymphocytes # 0.9 10^3/uL (0.8-4.8); Lymphocytes % 17.8 %; Mean Corpuscular HGB Conc 33.3 g/dL (30.0-36.0); Mean Corpuscular Hemoglobin 31.7 pg (28.0-34.0); Mean Corpuscular Volume 95.4 fl (81-99); Mean Platelet Volume 9.5 fL (7.4-10.4); Monocytes # 0.4 10^3/uL (0.2-0.9); Monocytes % 6.9 %; Neutrophils # 3.22 10^3/uL (1.8-7.7); Neutrophils % 63.1 %; Nucleated Red Blood Cells % 0 %; Platelet Count 152 10^3/cmm (130-400); Red Blood Count 5.17 10^6/uL (4.1-5.3); Red Cell Distribution Width 12.4 % (12.1-15.1); White Blood Count 5.1 10^3/uL (4.0-10.0)
--- NOTE | 2022-09-26 09:14 | PC.NURSE ---
REFUSED SCHEDULED OMNICEF, TOLD STAFF I DON'T TAKE PILLS ONLY THE SPIRIT PROVIDES FOR ME STAFF ATTEMPTS TO EDUCATE THE IMPORTANCE OF TAKING SCHEDULED MEDS, PATIENT CONTINUED TO REFUSE & ASKED STAFF TO LEAVE HER ROOM
--- NOTE | 2022-09-26 09:23 | PC.OT ---
OT EVALUATION HELD THIS DATE DUE TO: 1. HEAD LICE 2. PATIENT SINGING VERY LOUDLY IN HER ROOM AND UNABLE TO PARTICIPATE AT THIS TIME
[2022-09-26 11:13] LABS: Alanine Aminotransferase 148 U/L (0-33); Alkaline Phosphatase 85 U/L (35-105); Aspartate Amino Transferase 334 U/L (0-32); Globulin 3.1 g/dL (1.3-4.6); Total Bilirubin 2.2 mg/dL (0.15-1.2); Total Protein 7.1 g/dL (6.6-8.7)
--- NOTE | 2022-09-26 12:31 | PC.NURSE ---
during shift assessment this morning this RN went into pt room. pt stated that she did not have an urge to hurt herself or others. of this statement pt turned to look at the corner of the room and states i see you. This RN asked who she was seeing pt then glared at this RN and stated im fine. continued conversation with pt then pt stated i am god and an maday, i am all four. pt refused to elaborate on this. pt then stated to herself grandma?, why are you telling them they cant go there, thats my job. this Rn finished assessment and left the room.
--- NOTE | 2022-09-26 12:40 | PC.NURSE ---
pt continues to appear internally occupied. upon walking in to pt room pt appeared to speaking to self. pt appeared to be pacing around the room. pt stated she didnt need anything. and asked how long have i been here? this RN stated that she had been here since last night. pt then stated i wont be here long.
--- NOTE | 2022-09-26 13:07 | PC.NURSE ---
ELEVATED LIVER FUNCTION TEST RESULTS WERE REPORTED TO DR. PECK. WAS ALSO INFORMED OF PTS ACUTE UTI AND PT IS REFUSING ANTIBIOTICS. DR. PECK STATES HE WILL GO SEE PT NOW AND ORDER A MEDICAL CONSULT. NO NEW ORDERS WERE RECEIVED.
--- NOTE | 2022-09-26 13:54 | P.NPUHP_ITS ---
Providers/Chief Complaint Admitting Physician: Herminio Puentes MD Chief Complaint: 96 HPI [facility] History of Present Illness Yessica Vasquez is a 37 year old female with a previous history of psychosis admitted here in June 2021 who presented to the emergency department by law enforcement. She had apparently been convinced that the law enforcement was trying to put something in her neck and she had made an attempt to slice her throat. She was placed here on a 96-hour hold and was initially treated for head lice in the intensive care unit with additional medical problems including elevated liver function tests. She was transferred to the neuropsychiatric unit today for further evaluation and treatment. She had been unable to describe why she was in the hospital. She had appeared quite confused and stated that she was here for the truth. She had reported that the police had brought her here. She had appeared at times distracted and the interview was paused briefly as the patient had appeared to say something to someone that was not in the room. She had refused to take any medications and was unwilling to discuss any of the reasons that she may have been placed here. She did report that she was in a place where she could seen and was reporting that she felt that there was a special reason for her to be here at this time. She denied any thoughts of hurting herself or others. She was informed that she was here involuntarily and did not appear to be willing to discuss her problems any further. She had refused all medications involved in her potential treatment although she had rep orted having active symptoms suggestive of a urinary tract infection. She had refused to have any further testing done as she had reported that there may be poison in the needle. Past psychiatric history: Unknown other than reports that the patient had been hospitalized here in June 2021. Drug and alcohol history: Reported history of alcohol abuse and intravenous drug use. Legal history: Unknown history: Unknown Medications: None Surgeries: Refused to answer Allergies: Morphine and bee venom protein Medical history: Hepatitis C active, head lice active, urinary tract infection Social history: Patient reports that she was born in [place] and reports having graduated from high school while residing with her mother. She states that she had previously lived in [place] and had worked. She reports having 4 children. She did not elaborate any further other than stating that she lives with a good friend name Mark in [place]. Exerpt provided here from Discharge Summary from June 2021 at [facility] a is believed that the air however you Discharge Diagnosis (1) Psychosis: ?Status:?Acute ?Qualifiers: ?Psychosis type:?other? Qualified Code(s):?F28 - Other psychotic disorder not due to a substance or known physiological condition (2) History of alcohol abuse: ?Status:?Chronic (3) History of intravenous drug abuse: ?Status:?Chronic (4) RLS (restless legs syndrome): ?Status:?Chronic (5) GERD (gastroesophageal reflux disease): ?Status:?Chronic ?Qualifiers: ?Esophagitis presence:?esophagitis presence not specified? Qualified Code(s):?K21.9 - Gastro-esophageal reflux disease without esophagitis (6) Cannabis use disorder, moderate, dependence: ?Status:?Chronic (7) Post-traumatic stress disorder, chronic: ? (8) Anxiety: ?Status:?Chronic (9) Essential (primary) hypertension: ?Status:?Chronic (10) Mixed hyperlipidemia: ?Status court order 96? Brief History: History of Present Illness Yessica Vasquez is a 36 year old female who was admitted from our emergency department yesterday with the following report: General:?? Chief Complaint: Psychiatric Symptoms Stated Complaint: court order 96 Time Seen by Provider: 06/22/21 19:27 Source: patient and police Mode of arrival: other (police custody) Limitations: no limitations History of Present Illness:?? HPI Narrative: Patient is a 36-year-old female who presents to ED today in police custody after they served her 96-hour hold paperwork.? Patient is essentially denying all accusations and states she does not know why she is here. Patient's hold paperwork is very lengthy and some of it is illegible. It seems to consistent of several random incidents-I will try and describe here: She constantly calls ambulances but then when she arrives to the hospital immediately leaves.? She apparently was missing for 2 days and then found standing in a dollar store opening and closing a freezer door.? Her 13-year-old son went to an all-night skate libertarian but states after an hour she grabbed a pellet/BB gun and went to go try to pick him up.? Hold paperwork states she has not bathed in over a month.? She apparently placed her son in school and then immediately after one day decided she was moving and took him back out of school.? She has disappeared on several occasions for days. She apparently has gotten knives and threatened people with them-even her 13-year-old son. She has threatened to jump out of vehicles. She has slept with knives under her pillow. MD complaint: other (96 hour hold) Associated symptoms: Deny auditory hallucinations, visual hallucinations, depression, homicidal ideation or suicidal ideation Treatments prior to arrival: placed on mental health hold. She was admitted to the neuropsychiatry unit for treatment of these issues.She says that everything in the affidavit from her aunt is a lie.? She says that her aunt is trying to get her children from her.? She says that she did not go to a [employer] rank with a pellet gun.? She says that she does not have a car.? She does not remember anything about her son going to a [employer] rink.? She was told that her thinking did not appear to be clear last night in the emergency room.? She did not want them to draw her blood because she said that there was poison on the needle.? She said that she has a phobia of needles ever since her many years ago gave her an injection of something and she woke up with numbness and other problems.? I asked her if she thought that it was logical to think that the hospital would be purposely putting poison on the needle to draw her blood and she did not answer.? I tried again and she still would not answer whether that was logical or not.? He denies thinking that anyone else was out to get her other than her aunt.? She denies any difficulty recently with sleep or appetite.? She denies hearing any voices or seeing anything that is not there.? She said that she was depressed and having difficulties when she saw Dr. Rader last year.? She said that the medications that Dr. Rader gave her did not help last year.? She says that she has wondered she just visualizes something she can fall asleep without difficulties.? She denies having nightmares.? She does not feel that she has been depressed lately.? She has benzodiazepines in her urine at her previous admission and again last night in the emergency room.? She denies using any benzodiazepines.? She did ask for benzodiazepines during the last admission but was advised why that was a bad idea.? After I told her that she had benzodiazepine she said ?well maybe give me a couple of Valium. ? She denies using alcohol, methamphetamine, marijuana or any drugs.? She does not want to take any drugs.? I asked her about the prazosin that her primary care provider gave her.? She did not know what that was for. Hospital Course Hospital Course She slowly acclimated to the individual, group and milieu therapies provided.? He refused medications.? She was pacing and talking to herself most of the time during the day.? She slept fairly well.? He never gave evidence that she was a threat to herself or others.? She was able to contract for safety outside hospital prior to discharge.? During the hospitalization, patient had routine laboratory studies which were within normal limits except for few outliers.? Additionally there was a general medical evaluation which was also within normal limits and revealed no new acute processes. Discharge Summary: At the time of discharge, lethality was denied and psychosis might have been decreased.? Mood and anxiety were well managed.? Patient endorsed a plan to follow-up with the aftercare recommendations of the treatment team.? Patient was evaluated and deemed to be absent credible lethality, and had achieved the maximum benefit from an inpatient hospitalization, so was discharged. Meds NPU Home Medications Medication Instructions Recorded Confirmed Last Taken Type Unable to Assess 09/25/22 09/25/22 Unknown History Allergies Allergy/AdvReac Type Severity Reaction Status Date / Time bee venom protein (honey bee) Allergy Intermediate racing Verified 10/13/20 08:55 heart, throwing up morphine AdvReac Intermediate N & V Verified 10/13/20 08:55 [facility] N[facility] PFS: Medical History Abnormal EKG Abscess of skin of abdomen Alcohol use disorder, severe, dependence Allergic atopic asthma without complication Allergic rhinitis Anxiety Asthma Atypical chest pain Bee sting allergy Bilateral knee pain Declined smoking cessation OROSCO (dyspnea on exertion) Dyslipidemia Essential (primary) hypertension Head lice Major depressive disorder, recurrent, moderate Mixed hyperlipidemia Right knee pain Right shoulder pain Smoking addiction Vitamin D insufficiency Surgical History History of cholecystectomy History of tubal ligation Family History Family/Other CAD (coronary artery disease) Cancer Lung disease Father CAD (coronary artery disease) Lung disease Grandmother Cancer Mother Chronic kidney disease (CKD) Diabetes Stroke Grandfather Diabetes Daughter Lung disease Other Hypertension Denies family history of Clotting disorder Dementia Suicide Anesthesia complication Bleeding disorder Social History Smoking and tobacco status: current every day smoker cigarettes Packs smoked per day: 0.5 Years cigarettes smoked: 17 Quit status (tobacco): has tried quititng Number of times tried to quit tobacco: 2 Second hand smoke exposure: Yes Smoking risk assessment/counseling performed?: Yes Alcohol intake: current Alcohol intake frequency: few times a month Desire information about alcohol rehabilitation?: No Desire information about substance/drug rehabilitation?: No Counseling given: Yes Last substance use date: 06/11/19 Caregiver/support person: No Lives independently: Yes Household members: spouse Marital status: Number of children: 4 service: No Current occupational status: unemployed Current gender identity: Female Mental Status Exam MSE Comments: Disheveled white female who is malodorous and unkempt. She appeared older than her stated age. her hygiene was poor. She was extremely animated with increased psychomotor activity. She was singing at the top of her lungs prior to being interrupted. Her speech was monotone and quality with increased productivity an d increased rate and increased volume. She was alert and oriented to the type of place but did not appear to know the date or time. Her mood was described as great. Her affect appeared irritable and labile with periods of intense agitation noted. There was clear evidence of flight of ideas and her thought process appeared to derail. There was clear evidence of delusions and she appeared actively paranoid. Her insight is impaired. Her judgment is poor. Her impulse control appeared impaired as well. She did not endorse thoughts of hurting herself or others. There was clear evidence of grandiosity Vitals/I&O/Wt Last Vital Signs Temp 97.6 F 09/26/22 03:44 Pulse 92 09/26/22 03:44 Resp 16 09/26/22 06:00 BP 103/71 09/26/22 03:44 Pulse Ox 98 09/26/22 03:44 O2 Del Method Room Air 09/26/22 03:44 Weight last 48 hrs Weight 69.037 kg Weight 68.039 kg Data NPU 09/26/22 08:43 09/25/22 10:51 A&P Assessment and plan (1) Acute psychosis: (2) Paranoid delusion: (3) Hepatitis C: (4) Head lice: Plan This is a 37-year-old white female with a history of psychotic disorder not only specified currently admitted to the neuropsychiatric unit with florid psychosis and some features of murray with no clear cause. Patient also appears to be having significant medical issues including length, hepatitis C that appears active and a urinary tract infection. She is refusing any treatment at this time and will likely remain involuntarily here. 1.? ?Engage? patient in individual ,milieu, and group therapy ?2. ? We will attempt to gather collateral information from previous providers ?3. ? TO-15 minute checks on the unit. ?4.? Recommend sober living treatment at the highest level of care to which the patient is willing to commit. 5. Appreciate medical consult regarding hepatitis C, will repeat liver function test to determine whether patient is stabilizing or having fulminant liver failure. Liver function test today appeared to be stabilizing with AST reduced today from 350-334 and ALT reduced from 153-148. Involuntary Hold Information 96 Hour Hold: 96 Hour Involuntary Admission: Yes 96 Hour Hold Ending Date: 10/01/22 96 Hour Hold Ending Time: 09:40 Attestations NPU Medical Necessity Statement*: Patient hospitalization is deemed medically necessary and appears to be the clinically appropriate intervention at this time. We will monitor and initiate medications and make changes as indicated. She will be in the hospital for over 2 midnights with a likely length of stay of 7 to 10 days. Coding Level of Care Code Acute Code for [facility] Fwd Diagnoses Acute psychosis F23 Paranoid delusion F22 Hepatitis C B19.20 Head lice B85.0
[2022-09-26 14:00] VITALS: BP 122/78; PULSE 110; RESP 18; TEMP 36.5; O2SAT 97
--- NOTE | 2022-09-26 16:18 | PC.NURSE ---
THIS RN AND OTHER RN WENT TO PT ROOM TO GIVE ROCHEPHIN INJECTION FOR UTI. PT STATED I WILL NOT TAKE THAT, AND I AM NOT GOING TO TAKE IT, I AM JUST FINE. PT WAS ENCOURAGED AND EDUCATED ON THE PURPOSE AND THE NEED TO TAKE THE ANTIBIOTIC INJECTION. PT CONTINUED TO REFUSE, THEN ASKED RN'S TO LEAVE. DR. MCKEON WAS NOTIFED AND NEW ORDERS WERE RECEIVED TO HOLD ROCEPHIN UNTIL PT IS AGREEABLE TO TAKE. DR. PECK WAS ALSO NOTIFIED. NEW ORDERS WERE RECEIVED TO COLLECT A HEPATIC PANEL IN THE AM. ORDERS WERE PLACED.
--- NOTE | 2022-09-27 09:21 | PC.OT ---
OT EVALUATION WILL BE HELD UNTIL SATURDAY DUE TO PATIENT HAVING ACTIVE LICE AND TREATMENT AND ACTIVE PSYCHOSIS.
[2022-09-27 14:00] VITALS: BP 109/74; PULSE 82; RESP 18; TEMP 36.4; O2SAT 98
--- NOTE | 2022-09-27 16:22 | W.PM.NPUPNS ---
Subjective NPU Subjective: The patient is a 37-year-old white female admitted with poor self-care, active psychosis including delusions and hyperreligiosity who remains somewhat noncompliant with her current care. She had apparently refused laboratory testing despite having elevated liver function test. She had continued to state that she would be going home when her sister came to visit her at 3:00 today. She had refused to allow the completion of her cleansing necessary due to rampant lice on her hair. She had been thoroughly noncompliant and barely redirectable as she had received some as needed medications last night for agitation. She had slept poorly. She had continued to have periods of loud singing on the milieu. She had continued to reiterate that she did not need to be here but was unable to clearly answer where she was going and what the name of this place was at this time. Mental Status Exam MSE Comments: Disheveled white female who is malodorous and unkempt. She appeared older than her stated age. She was belligerent white female who appeared somewhat irritable and was vocalizing initially when seen but later appeared to quiet down. She had refused to answer any questions simply stating that she was going to go home with her sister at 3 PM. Her speech was monotone and quality with increased productivity and increased rate and increased volume. She was alert and oriented to the type of place but did not appear to know the date or time. Her mood was described as fine. Her affect appeared irritable and mood incongruent. Her thought process showed evidence of derailment. There was clear evidence of delusions and she appeared actively paranoid. Her insight is impaired. Her judgment is poor. Her impulse control appeared impaired as well. She did not endorse thoughts of hurting herself or others. There was clear evidence of grandiosity. Vitals/I&O/Wt Last Vital Signs Temp 97.6 F 09/27/22 14:00 Pulse 82 09/27/22 14:00 Resp 18 09/27/22 14:00 BP 109/74 09/27/22 14:00 Pulse Ox 98 09/27/22 14:00 O2 Del Method Room Air 09/27/22 14:00 Weight last 48 hrs Weight 69.037 kg Data NPU 09/26/22 08:43 09/25/22 10:51 Micro: Microbiology 09/25/22 09:05 Urine Culture - Preliminary Urine,Clean Catch Microbiology 09/25/22 09:05 Urine,Clean Catch Urine Culture - Preliminary A&P Assessment and plan (1) Acute psychosis: (2) Paranoid delusion: (3) Hepatitis C: (4) Head lice: Plan This is a 37-year-old white female with a history of psychotic disorder not only specified currently admitted to the neuropsychiatric unit with florid psychosis and some features of murray with no clear cause. Patient also appears to be having significant medical issues including length, hepatitis C that appears active and a urinary tract infection. She is refusing any treatment at this time and will likely remain involuntarily here. 1.? ?Engage? patient in individual ,milieu, and group therapy ?2. ? We will attempt to gather collateral information from previous providers ?3. ? TO-15 minute checks on the unit. ?4.? Recommend sober living treatment at the highest level of care to which the patient is willing to commit. 5. Appreciate medical consult regarding hepatitis C, will repeat liver function test to determine whether patient is stabilizing or having fulminant liver failure. Liver function test today had not been obtained and refused by patient. Involuntary Hold Information 96 Hour Hold: 96 Hour Involuntary Admission: Yes 96 Hour Hold Ending Date: 10/01/22 96 Hour Hold Ending Time: 09:40 Attestations NPU Medical Necessity Statement*: Patient hospitalization is deemed medically necessary and appears to be the clinically appropriate intervention at this time. We will monitor and initiate medications and make changes as indicated. She will be in the hospital for over 2 midnights with a likely length of stay of 7 to 10 days. Coding Level of Care Code Acute Code for [facility] Diagnoses Acute psychosis F23 Paranoid delusion F22 Hepatitis C B19.20 Head lice B85.0
--- NOTE | 2022-09-27 20:59 | PM.PN ---
Subjective Subjective: There are right. Denies pain or discomfort. Denies headache, fever or chills, no trouble breathing, chest pain or pressure, no abdominal pain or discomfort. Vitals/I&O/Wt Last Vital Signs Temp 97.6 F 09/27/22 14:00 Pulse 82 09/27/22 14:00 Resp 18 09/27/22 14:00 BP 109/74 09/27/22 14:00 Pulse Ox 98 09/27/22 14:00 O2 Del Method Room Air 09/27/22 14:00 Weight last 48 hrs Weight 69.037 kg Physical Exam Const: COMMON NORMALS: patient oriented x3 and alert GENERAL APPEARANCE: cooperative ORIENTATION/CONSCIOUSNESS: Yes awake HENMT: COMMON NORMALS: oropharynx normal Neck/C-Spine: COMMON NORMALS: no JVD Resp: COMMON NORMALS: normal respiratory effort and clear to auscultation bilaterally AUSCULTATION: clear to auscultation bilaterally Cardio: COMMON NORMALS: no JVD, regular rhythm, S1 normal heart sound present, S2 normal heart sound present and No murmurs present (Cardio) RHYTHM: regular rhythm HEART SOUNDS: S1 normal heart sound present and S2 normal heart sound present GI: COMMON NORMALS: Normal to inspection, nondistended, normoactive bowel sounds present, Soft to palpation and non-tender PALPATION: Yes Soft to palpation Extremity: COMMON NORMALS: no joint enlargement and no pedal edema Neuro: COMMON NORMALS: patient oriented x3 and moves all extremities SENSORIUM/ORIENTATION: Yes alert Skin: COMMON NORMALS: no rashes or lesions noted GENERAL SKIN EXAM: no rashes or lesions noted Data 09/26/22 08:43 09/25/22 10:51 Micro: Microbiology 09/25/22 09:05 Urine Culture - Preliminary Urine,Clean Catch A&P Assessment and plan (1) Head lice: (2) Hepatitis C: HCV RNA pending. Will need follow-up. (3) Urinary tract infection: Plan She has refused oral antibiotic, was changed to IM Rocephin for now if she will allow for UTI until can resume oral. Transaminitis appears to have plateaued. Follow-up LFTs. Discussed with [facility] staff and psychiatry. Attestations Medical Necessity Statement*: Continue assessment and management of acute psychosis. Diagnoses Head lice B85.0 Hepatitis C B19.20 Urinary tract infection N39.0
[2022-09-27 21:53] LABS: HEP C RNA Viral Load Quant 7.22 Log IU/mL (NOT DETECTED)
[2022-09-28 06:00] VITALS: RESP 15
--- NOTE | 2022-09-28 09:37 | PC.NURSE ---
Went in to pt room to perform shift assessment. pt was willing to allow me to listen to her with my stethoscope. pt denies si/hi. pt appears to be internally occupied. during conversation pt looked to the window and mumbled something that was unable to be determined by this Nurse. When this RN asked if the patient felt like she was seeing or hearing anything that she did not believe to be there. the pt responded with dont we all. this RN then asked if pt would allow us to perform her head lice treatment pt stated no, it hurt last time and im done with those now. Rn educated the importance of the treatment however, pt is resistant to learning and still refused. This RN asked if we would be able to give her the abx injection or her UTI pt stated No, I wont take any more medicine. I feel fine. RN educated on the importance of this anb and the possible outcome of not taking it . pt resistant to learning and still refused.
[2022-09-28 10:05] LABS: Basophils % 0.8 %; Eosinophils # 0.2 10^3/uL (0.0-0.8); Eosinophils % 6.1 %; Hematocrit 40.6 % (37.0-47.0); Hemoglobin 13.2 g/dL (11.5-15.3); Lymphocytes # 1.1 10^3/uL (0.8-4.8); Lymphocytes % 30.5 %; Mean Corpuscular HGB Conc 32.5 g/dL (30.0-36.0); Mean Corpuscular Hemoglobin 31.8 pg (28.0-34.0); Mean Corpuscular Volume 97.8 fl (81-99); Mean Platelet Volume 9.7 fL (7.4-10.4); Monocytes # 0.3 10^3/uL (0.2-0.9); Monocytes % 9.1 %; Neutrophils # 1.91 10^3/uL (1.8-7.7); Neutrophils % 52.9 %; Nucleated Red Blood Cells % 0 %; Platelet Count 123 10^3/cmm (130-400); Red Blood Count 4.15 10^6/uL (4.1-5.3); Red Cell Distribution Width 12.8 % (12.1-15.1); White Blood Count 3.6 10^3/uL (4.0-10.0)
[2022-09-28 10:25] LABS: Alanine Aminotransferase 105 U/L (0-33); Albumin Level 3.4 g/dL (3.5-5.2); Alkaline Phosphatase 62 U/L (35-105); Aspartate Amino Transferase 141 U/L (0-32); Globulin 2.7 g/dL (1.3-4.6); Total Bilirubin 0.7 mg/dL (0.15-1.2); Total Protein 6.1 g/dL (6.6-8.7)
[2022-09-28 10:35] LABS: Alanine Aminotransferase 106 U/L (0-33); Albumin Level 3.5 g/dL (3.5-5.2); Alkaline Phosphatase 62 U/L (35-105); Anion Gap 12.6 (5-19); Aspartate Amino Transferase 144 U/L (0-32); Blood Urea Nitrogen 12 mg/dL (6-20); Calcium 8.3 mg/dL (8.5-10.5); Carbon Dioxide 27 mmol/L (22-29); Chloride 106 mmol/L (98-107); Globulin 2.7 g/dL (1.3-4.6); Glomerular Filtration Rate 93.6 mL/min (90-130); Glucose 81 mg/dL (65-115); Osmolality Calculated 293 mOsm/kg (285-295); Potassium 3.6 mmol/L (3.5-5.1); Sodium 142 mmol/L (136-145); Thyroid Stimulating Hormone 1.42 uIU/mL (0.27-4.20); Total Bilirubin 0.7 mg/dL (0.15-1.2); Total Protein 6.2 g/dL (6.6-8.7)
--- NOTE | 2022-09-28 13:01 | W.PM.NPUPNS ---
Subjective NPU Subjective: Patient presented today reporting that she is still unwilling to take her medications for controlling her lice, her UTI or psychiatric medications being recommended. She could give no clear reason for her resistance. She was often mumbling to herself while this board writer was in the room but would not identify what she was saying or who the words were meant for. We discussed the 21-day hold hearing on Saturday and her best approach to early discharge being to take the medications are being recommended for her medical and psychiatric health. She ultimately ended the discussion early reporting that it was unclear who I thought I was. Mental Status Exam MSE Comments: This is a well-nourished well-developed white female in hospital scrubs looking older than her stated age with better hygiene in previous days per reports and intermittent eye contact. No abnormal movements except for mild psychomotor retardation at times but then some psychomotor agitation when she gets frustrated. Mostly uncooperative with exam in moderate distress. Speech was limited and mostly decreased rate and volume but increased rate when she seemed to be speaking to herself or responding to internal stimuli. Mood not described, affect was irritable. Thought process linear. Thought content: Patient did not report suicidal or homicidal ideation, there were no delusions reported but paranoia and possible persecutory and hyperreligious delusions noted, she did not report auditory or visual hallucinations but did appear to be attending to internal stimuli. Attention and concentration were limited and memory was unreliable but none were formally tested. He is alert and oriented to person and place. Insight, judgment and impulse control are impaired. Vitals/I&O/Wt Last Vital Signs Temp 97.6 F 09/27/22 14:00 Pulse 82 09/27/22 14:00 Resp 15 09/28/22 06:00 BP 109/74 09/27/22 14:00 Pulse Ox 98 09/27/22 14:00 O2 Del Method Room Air 09/27/22 14:00 Data NPU 09/28/22 09:50 09/28/22 09:50 Micro: Microbiology 09/25/22 09:05 Urine Culture - Final Urine,Clean Catch Microbiology 09/25/22 09:05 Urine,Clean Catch Urine Culture - Final A&P Assessment and plan (1) Acute psychosis: (2) Paranoid delusion: (3) Hepatitis C: (4) Head lice: Plan This is a 37-year-old white female with a history of psychotic disorder not only specified currently admitted to the neuropsychiatric unit with florid psychosis and some features of murray with no clear cause. Patient also appears to be having significant medical issues including length, hepatitis C that appears active and a urinary tract infection. She is refusing any treatment at this time and will likely remain involuntarily here. 1.? ?Engage? patient in individual ,milieu, and group therapy ?2. ? We will attempt to gather collateral information from previous providers ?3. ? TO-15 minute checks on the unit. ?4.? Recommend sober living treatment at the highest level of care to which the patient is willing to commit. 5. Appreciate medical consult regarding hepatitis C, will repeat liver function test to determine whether patient is stabilizing or having fulminant liver failure. Liver function test today had not been obtained and refused by patient. 6. Continue current medications. Unfortunately patient refusing medications at this time. Involuntary Hold Information 96 Hour Hold: 96 Hour Involuntary Admission: Yes 96 Hour Hold Ending Date: 10/01/22 96 Hour Hold Ending Time: 09:40 Attestations NPU Medical Necessity Statement*: Patient hospitalization is deemed medically necessary and the clinically appropriate intervention at this time. We will monitor and initiate medications and make changes as indicated. Likely length of stay of 7 to 10 days. Coding Level of Care Code Acute Code for [facility] Fwd Diagnoses Acute psychosis F23 Paranoid delusion F22 Hepatitis C B19.20 Head lice B85.0
[2022-09-28 17:00] LABS: Hematocrit 40.6 % (37.0-47.0); Retic Production Index 2.03
[2022-09-28 17:04] LABS: LAB Peripheral Smear Sent for Review
[2022-09-28 17:09] LABS: Lactate Dehydrogenase 344 U/L (135-214)
--- NOTE | 2022-09-28 20:50 | P.PN_ITS ---
Subjective Subjective: Watching TV in the day room. Sitting on the windowsill, then moved to the table to finish her tea. States she is doing fine. Denies any pain or discomfort. No headache, dizziness, vision changes, chills or malaise. No chest pain pressure, shortness of breath, abdominal pain or discomfort. Denies any urinary. Vitals/I&O/Wt Last Vital Signs Temp 97.6 F 09/27/22 14:00 Pulse 82 09/27/22 14:00 Resp 15 09/28/22 06:00 BP 109/74 09/27/22 14:00 Pulse Ox 98 09/27/22 14:00 O2 Del Method Room Air 09/27/22 14:00 Physical Exam Const: COMMON NORMALS: patient oriented x3 and alert GENERAL APPEARANCE: cooperative ORIENTATION/CONSCIOUSNESS: Yes awake HENMT: COMMON NORMALS: oropharynx normal Neck/C-Spine: COMMON NORMALS: no JVD Resp: COMMON NORMALS: normal respiratory effort and clear to auscultation bilaterally AUSCULTATION: clear to auscultation bilaterally Cardio: COMMON NORMALS: no JVD, regular rhythm, S1 normal heart sound present, S2 normal heart sound present and No murmurs present (Cardio) RHYTHM: regular rhythm HEART SOUNDS: S1 normal heart sound present and S2 normal heart sound present GI: COMMON NORMALS: Normal to inspection, nondistended, normoactive bowel sounds present, Soft to palpation and non-tender PALPATION: Yes Soft to palpation Extremity: COMMON NORMALS: no joint enlargement and no pedal edema Neuro: COMMON NORMALS: patient oriented x3 and moves all extremities SENSORIUM/ORIENTATION: Yes alert Skin: COMMON NORMALS: no rashes or lesions noted GENERAL SKIN EXAM: no rashes or lesions noted Data 09/28/22 09:50 09/28/22 09:50 Micro: Microbiology 09/25/22 09:05 Urine Culture - Final Urine,Clean Catch A&P Assessment and plan (1) Head lice: (2) Hepatitis C: HCV RNA pending. Will need follow-up. (3) Urinary tract infection: Denies any urinary symptoms. Urine culture so far with 50-60,000 mixed carl. She had declined antibiotic, has not been given, will discontinue. Follow-up final urine culture. (4) Thrombocytopenia: Requested haptoglobin, LDH, reticulocyte, peripheral smear. Follow-up CBC. (5) Leukopenia: Follow-up CBC Plan Transaminitis: Noted improving, AST down to 144, ALT down to 106. Per discussion with INSTRUCTIONAL TECHNOLOGY FACILITATOR's staff, still having hallucinations. Attestations Medical Necessity Statement*: Continue admission for management of acute psychosis, reassess blood counts and chemistry. Diagnoses Head lice B85.0 Hepatitis C B19.20 Urinary tract infection N39.0 Thrombocytopenia D69.6 Leukopenia D72.819
[2022-09-28 22:00] VITALS: BP 105/70; PULSE 65; RESP 16; O2SAT 98
[2022-09-29 06:00] VITALS: RESP 15
--- NOTE | 2022-09-29 08:53 | W.PM.NPUPNS ---
Subjective NPU Subjective: Presented today continuing to be resistant to any medication intervention whether for UTI, lice or her psychiatric concerns. She has become more pleasant about her denial. We continued to discuss the court date on Saturday and that we would be requesting the additional 21 days. Mental Status Exam MSE Comments: This is a well-nourished well-developed white female in hospital scrubs looking older than her stated age with better hygiene in previous days per reports and intermittent eye contact. No abnormal movements except for mild psychomotor retardation. Mostly uncooperative with exam, but pleasantly in no acute distress. Speech was limited and mostly decreased rate and volume. Mood described as okay, affect was pleasant. Thought process linear. Thought content: Patient did not report suicidal or homicidal ideation, there were no delusions reported but paranoia and possible persecutory and hyperreligious delusions noted, she did not report auditory or visual hallucinations but did appear to be attending to internal stimuli. Attention and concentration were limited and memory was unreliable but none were formally tested. He is alert and oriented to person and place. Insight, judgment and impulse control are impaired. Vitals/I&O/Wt Last Vital Signs Temp 97.6 F 09/27/22 14:00 Pulse 65 09/28/22 22:00 Resp 15 09/29/22 06:00 BP 105/70 09/28/22 22:00 Pulse Ox 98 09/28/22 22:00 O2 Del Method Room Air 09/28/22 22:00 Data NPU 09/29/22 10:13 09/29/22 10:13 Micro: Microbiology 09/25/22 09:05 Urine Culture - Final Urine,Clean Catch Microbiology 09/25/22 09:05 Urine,Clean Catch Urine Culture - Final A&P Assessment and plan (1) Acute psychosis: (2) Paranoid delusion: (3) Hepatitis C: (4) Head lice: Plan This is a 37-year-old white female with a history of psychotic disorder not only specified currently admitted to the neuropsychiatric unit with florid psychosis and some features of murray with no clear cause. Patient also appears to be having significant medical issues including length, hepatitis C that appears active and a urinary tract infection. She is refusing any treatment at this time and will likely remain involuntarily here. 1.? ?Engage? patient in individual ,milieu, and group therapy ?2. ? We will attempt to gather collateral information from previous providers ?3. ? TO-15 minute checks on the unit. ?4.? Recommend sober living treatment at the highest level of care to which the patient is willing to commit. 5. Appreciate medical consult regarding hepatitis C, will repeat liver function test to determine whether patient is stabilizing or having fulminant liver failure. Liver function test today had not been obtained and refused by patient. 6. Continue current medications. Unfortunately patient refusing medications at this time. 7. Await 21-day hold hearing Saturday at 3 PM in hopes of getting forced medication. Involuntary Hold Information 96 Hour Hold: 96 Hour Involuntary Admission: Yes 96 Hour Hold Ending Date: 10/01/22 96 Hour Hold Ending Time: 09:40 Attestations NPU Medical Necessity Statement*: Patient hospitalization is deemed medically necessary and the clinically appropriate intervention at this time. We will monitor and initiate medications and make changes as indicated. Likely length of stay of 7 to 10 days. Coding Level of Care Code Acute Code for [facility] Fwd Diagnoses Acute psychosis F23 Paranoid delusion F22 Hepatitis C B19.20 Head lice B85.0
[2022-09-29 10:26] LABS: Basophils % 0.9 %; Eosinophils # 0.2 10^3/uL (0.0-0.8); Eosinophils % 5.9 %; Hematocrit 45.9 % (37.0-47.0); Hemoglobin 14.3 g/dL (11.5-15.3); Lymphocytes # 0.9 10^3/uL (0.8-4.8); Lymphocytes % 27.6 %; Mean Corpuscular HGB Conc 31.2 g/dL (30.0-36.0); Mean Corpuscular Hemoglobin 31.3 pg (28.0-34.0); Mean Corpuscular Volume 100.4 fl (81-99); Monocytes # 0.4 10^3/uL (0.2-0.9); Monocytes % 10.3 %; Neutrophils # 1.86 10^3/uL (1.8-7.7); Neutrophils % 54.4 %; Nucleated Red Blood Cells % 0 %; Platelet Count 126 10^3/cmm (130-400); Red Blood Count 4.57 10^6/uL (4.1-5.3); Red Cell Distribution Width 12.7 % (12.1-15.1); White Blood Count 3.4 10^3/uL (4.0-10.0)
[2022-09-29 10:37] LABS: Alanine Aminotransferase 115 U/L (0-33); Albumin Level 3.6 g/dL (3.5-5.2); Alkaline Phosphatase 61 U/L (35-105); Aspartate Amino Transferase 130 U/L (0-32); Blood Urea Nitrogen 8 mg/dL (6-20); Calcium 8.8 mg/dL (8.5-10.5); Carbon Dioxide 25 mmol/L (22-29); Chloride 103 mmol/L (98-107); Globulin 2.9 g/dL (1.3-4.6); Glomerular Filtration Rate 93.6 mL/min (90-130); Glucose 68 mg/dL (65-115); Osmolality Calculated 281 mOsm/kg (285-295); Sodium 137 mmol/L (136-145); Total Bilirubin 0.8 mg/dL (0.15-1.2); Total Protein 6.5 g/dL (6.6-8.7)
[2022-09-29 10:38] LABS: Anion Gap 13.1 (5-19)
[2022-09-29 10:39] LABS: Potassium 4.1 mmol/L (3.5-5.1)
[2022-09-29 14:00] VITALS: BP 106/67; PULSE 60; RESP 16; TEMP 36.8; O2SAT 98
--- NOTE | 2022-09-29 16:43 | PC.NURSE ---
Treated patient's hair with Nix for treatment of head lice.
--- NOTE | 2022-09-29 21:02 | PM.PN ---
Subjective Subjective: Denies any headache, dizziness, nausea vomiting, trouble breathing or chest pain, no abdominal pain. Vitals/I&O/Wt Last Vital Signs Temp 98.3 F 09/29/22 14:00 Pulse 60 09/29/22 14:00 Resp 16 09/29/22 14:00 BP 106/67 09/29/22 14:00 Pulse Ox 98 09/29/22 14:00 O2 Del Method Room Air 09/29/22 14:00 Physical Exam Const: COMMON NORMALS: patient oriented x3 and alert GENERAL APPEARANCE: cooperative ORIENTATION/CONSCIOUSNESS: Yes awake HENMT: COMMON NORMALS: oropharynx normal Neck/C-Spine: COMMON NORMALS: no JVD Resp: COMMON NORMALS: normal respiratory effort and clear to auscultation bilaterally AUSCULTATION: clear to auscultation bilaterally Cardio: COMMON NORMALS: no JVD, regular rhythm, S1 normal heart sound present, S2 normal heart sound present and No murmurs present (Cardio) RHYTHM: regular rhythm HEART SOUNDS: S1 normal heart sound present and S2 normal heart sound present GI: COMMON NORMALS: Normal to inspection, nondistended, normoactive bowel sounds present, Soft to palpation and non-tender PALPATION: Yes Soft to palpation Extremity: COMMON NORMALS: no joint enlargement and no pedal edema Neuro: COMMON NORMALS: patient oriented x3 and moves all extremities SENSORIUM/ORIENTATION: Yes alert Skin: COMMON NORMALS: no rashes or lesions noted GENERAL SKIN EXAM: no rashes or lesions noted Data 09/29/22 10:13 09/29/22 10:13 A&P Assessment and plan (1) Head lice: Received treatment. So far has been scratching less, I have not seen additional lice, but if needed can repeat treatment. (2) Hepatitis C: HCV RNA noted elevated. Will need follow-up to get set up for treatment. (3) Urinary tract infection: Denies any urinary symptoms. Urine culture so far with 50-60,000 mixed carl. She had declined antibiotic, has not been given, will discontinue. Final urine culture with noted mixed urogenital carl. (4) Thrombocytopenia: Haptoglobin not low, LDH mildly elevated. RPI not significantly high. Reminder potation once a not likely having hemolysis. Follow-up peripheral smear. (5) Leukopenia: Follow-up CBC Plan Transaminitis: With improvement. Likely secondary to hepatitis C. Test without further rise. Initial concern to exclude acute liver failure, by trend of the markers does not appear to be going into liver failure. No abnormality of liver in appearance on CT. Ammonia noted was WNL. Acute psychosis: Psychiatry documentation reviewed. Continue assessment and management on neuropsychiatric willett. Per discussion with BED BUG EXTERMINATOR's staff Attestations Medical Necessity Statement*: Continue assessment and management of acute psychosis. Diagnoses Head lice B85.0 Hepatitis C B19.20 Urinary tract infection N39.0 Thrombocytopenia D69.6 Leukopenia D72.819
--- NOTE | 2022-09-30 09:19 | P.NPUPN_ITS ---
Subjective NPU Subjective: Patient presented today reporting that she is doing okay. She continues to keep her self occupied with playing solitaire and things of that nature. She continues to be resistant to any interventions involving medications. She is making no complaints regarding her currently untreated UTI and lice. She is not notable for scratching her head and does not report having any symptoms of the l ice. She continues to refuse treatment for her psychotic illness and is not able to even discuss our position that her taking something will decrease the likelihood or prevent circumstances like this in the future. Mental Status Exam MSE Comments: This is a well-nourished well-developed white female in hospital scrubs looking older than her stated age with better hygiene in previous days per reports and intermittent eye contact. No abnormal movements except for mild psychomotor retardation. More cooperative with exam in no acute distress. Speech was limited and mostly decreased rate and volume. Mood described as okay, affect was pleasant. Thought process linear. Thought content: Patient did not report suicidal or homicidal ideation, there were no delusions reported but paranoia and possible persecutory and hyperreligious delusions noted, she did not report auditory or visual hallucinations and did not appear to be attending to internal stimuli. Attention and concentration were limited and memory was unreliable but none were formally tested. She is alert and oriented to person and place. Insight, judgment and impulse control are impaired. Vitals/I&O/Wt Last Vital Signs Temp 98.3 F 09/29/22 14:00 Pulse 60 09/29/22 14:00 Resp 16 09/29/22 14:00 BP 106/67 09/29/22 14:00 Pulse Ox 98 09/29/22 14:00 O2 Del Method Room Air 09/29/22 14:00 Data NPU 09/29/22 10:13 09/29/22 10:13 A&P Assessment and plan (1) Acute psychosis: (2) Paranoid delusion: (3) Hepatitis C: (4) Head lice: Plan This is a 37-year-old white female with a history of psychotic disorder not only specified currently admitted to the neuropsychiatric unit with florid psychosis and some features of murray with no clear cause. Patient also appears to be having significant medical issues including length, hepatitis C that appears a ctive and a urinary tract infection. She is refusing any treatment at this time and will likely remain involuntarily here. 1.? ?Engage? patient in individual ,milieu, and group therapy ?2. ? We will attempt to gather collateral information from previous providers ?3. ? TO-15 minute checks on the unit. ?4.? Recommend sober living treatment at the highest level of care to which the patient is willing to commit. 5. Appreciate medical consult regarding hepatitis C, will repeat liver function test to determine whether patient is stabilizing or having fulminant liver failure. Liver function test today had not been obtained and refused by patient. 6. Continue current medications. Unfortunately patient refusing medications at this time. 7. Await 21-day hold hearing tomorrow at 3 PM in hopes of getting forced medication. Involuntary Hold Information 96 Hour Hold: 96 Hour Involuntary Admission: Yes 96 Hour Hold Ending Date: 10/01/22 96 Hour Hold Ending Time: 09:40 Attestations NPU Medical Necessity Statement*: Patient hospitalization is deemed medically necessary and the clinically appropriate intervention at this time. We will monitor and initiate medications and make changes as indicated. Likely length of stay of 7 to 10 days. Coding Level of Care Code Acute Code for [facility] Fwd Diagnoses Acute psychosis F23 Paranoid delusion F22 Hepatitis C B19.20 Head lice B85.0
[2022-09-30 14:00] VITALS: RESP 17
--- NOTE | 2022-09-30 14:15 | PC.NURSE ---
refused to let staff obtain vital signs
[2022-09-30 19:48] VITALS: BP 107/73; PULSE 57; RESP 18; TEMP 36.8; O2SAT 97
--- NOTE | 2022-09-30 21:59 | P.PN_ITS ---
Subjective Subjective: She denies any complaints, denies any headache, dizziness, vision changes, no chest pain or pressure, trouble breathing, abdominal pain. Vitals/I&O/Wt Last Vital Signs Temp 98.2 F 09/30/22 19:48 Pulse 57 L 09/30/22 19:48 Resp 18 09/30/22 19:48 BP 107/73 09/30/22 19:48 Pulse Ox 97 09/30/22 19:48 O2 Del Method Room Air 09/30/22 19:48 Physical Exam Narrative: Declines physical exam. Const: OTHER: Laying out cards of the table in the day room. Data 09/29/22 10:13 09/29/22 10:13 A&P Assessment and plan (1) Head lice: Received treatment. So far has been scratching less, I have not seen additional lice, but if needed can repeat treatment. (2) Hepatitis C: HCV RNA noted elevated. Will need follow-up to get set up for treatment. (3) Urinary tract infection: Denies any urinary symptoms. Urine culture so far with 50-60,000 mixed carl. She had declined antibiotic, has not been given, will discontinue. Final urine culture with noted mixed urogenital carl. (4) Thrombocytopenia: Haptoglobin not low, LDH mildly elevated. RPI not significantly high. Reminder potation once a not likely having hemolysis. Follow-up peripheral smear. (5) Leukopenia: Follow-up CBC Plan Transaminitis: Declined labs today. Follow-up CMP. Likely secondary to hepatitis C. Test without further rise. Initial concern to exclude acute liver failure, by trend of the markers does not appear to be going into liver failure. No abnormality of liver in appearance on CT. Ammonia noted was WNL. Acute psychosis: Psychiatry documentation reviewed. Continue assessment and management on neuropsychiatric willett. Per discussion with SENIOR ENERGY MARKET COORDINATOR's staff Attestations Medical Necessity Statement*: Continue admission for assessment and management of acute psychosis. Diagnoses Head lice B85.0 Hepatitis C B19.20 Urinary tract infection N39.0 Thrombocytopenia D69.6 Leukopenia D72.819
[2022-10-01 06:00] VITALS: BP 106/69; PULSE 73; RESP 16; O2SAT 98
[2022-10-01 14:00] VITALS: BP 120/77; PULSE 70; RESP 18; O2SAT 98
--- NOTE | 2022-10-01 14:07 | W.PM.NPUPNS ---
Subjective NPU Subjective: Patient presented today reporting that she is going to her hearing at 3 PM today due to not wanting to be in a police vehicle. We continued to discuss the need for appropriate treatments and she continues to refuse any medication as interventions. We attempted to discuss medications that might help in the past and she refused to do that. We discussed the fact that likely tomorrow to initiate forced medication protocols to assist her through the psychosis. Mental Status Exam MSE Comments: This is a well-nourished well-developed white female in hospital scrubs looking older than her stated age with better hygiene in previous days per reports and intermittent eye contact. No abnormal movements except for mild psychomotor retardation. More cooperative with exam in no acute distress. Speech was limited and mostly decreased rate and volume. Mood described as okay, affect was pleasant. Thought process linear. Thought content: Patient did not report suicidal or homicidal ideation, there were no delusions reported but paranoia and possible persecutory and hyperreligious delusions noted, she did not report auditory or visual hallucinations but was seen speaking to herself on several occasions. Attention and concentration were limited and memory was unreliable but none were formally tested. She is alert and oriented to person and place. Insight, judgment and impulse control are impaired. Vitals/I&O/Wt Last Vital Signs Temp 98.2 F 09/30/22 19:48 Pulse 70 10/01/22 14:00 Resp 18 10/01/22 14:00 BP 120/77 10/01/22 14:00 Pulse Ox 98 10/01/22 14:00 O2 Del Method Room Air 10/01/22 06:00 Data NPU 09/29/22 10:13 09/29/22 10:13 A&P Assessment and plan (1) Acute psychosis: (2) Paranoid delusion: (3) Hepatitis C: (4) Head lice: Plan This is a 37-year-old white female with a history of psychotic disorder not only specified currently admitted to the neuropsychiatric unit with florid psychosis and some features of murray with no clear cause. Patient also appears to be having significant medical issues including length, hepatitis C that appears active and a urinary tract infection. She is refusing any treatment at this time and will likely remain involuntarily here. 1.? ?Engage? patient in individual ,milieu, and group therapy ?2. ? We will attempt to gather collateral information from previous providers ?3. ? TO-15 minute checks on the unit. ?4.? Recommend sober living treatment at the highest level of care to which the patient is willing to commit. 5. Appreciate medical consult regarding hepatitis C, will repeat liver function test to determine whether patient is stabilizing or having fulminant liver failure. Liver function test today had not been obtained and refused by patient. 6. Continue current medications. Unfortunately patient refusing medications at this time. 7. Await 21-day hold hearing today at 3 PM in hopes of getting hold granted and institute a forced medication protocol. Involuntary Hold Information 96 Hour Hold: 96 Hour Involuntary Admission: Yes 96 Hour Hold Ending Date: 10/01/22 96 Hour Hold Ending Time: 09:40 Attestations NPU Medical Necessity Statement*: Patient hospitalization is deemed medically necessary and the clinically appropriate intervention at this time. We will monitor and initiate medications and make changes as indicated. Likely length of stay of 7 to 10 days. Coding Level of Care Code Acute Code for [facility] Fwd Diagnoses Acute psychosis F23 Paranoid delusion F22 Hepatitis C B19.20 Head lice B85.0
[2022-10-01 20:48] VITALS: BP 91/55; PULSE 60; RESP 18; O2SAT 99
[2022-10-02 06:00] VITALS: BP 100/67; PULSE 56; RESP 18; O2SAT 98
[2022-10-02] MEDS: paliperidone ER 6 mg Tablet PO (10:33)
[2022-10-02 14:00] VITALS: BP 109/65; PULSE 67; RESP 20; TEMP 36.7; O2SAT 99
--- NOTE | 2022-10-02 17:46 | W.PM.NPUPNS ---
Subjective NPU Subjective: Patient presented today reporting that she is doing okay. She took her Invega 6 mg p.o. every morning without incident. We had discussed the risks, benefits and alternatives and she understood agreed proceed as documented in this note. She was able to articulate that she does not want to take medication but was also aware that if she did not take the medication she would get an injection in its place for that day's dosing Mental Status Exam MSE Comments: This is a well-nourished well-developed white female in hospital scrubs looking older than her stated age with better hygiene in previous days per reports and intermittent eye contact. No abnormal movements except for mild psychomotor retardation. More cooperative with exam in no acute distress. Speech was limited and mostly decreased rate and volume. Mood described as okay, affect was pleasant. Thought process linear. Thought content: Patient did not report suicidal or homicidal ideation, there were no delusions reported but paranoia and possible persecutory and hyperreligious delusions noted, she did not report auditory or visual hallucinations but was seen speaking to herself on several occasions. Attention and concentration were limited and memory was unreliable but none were formally tested. She is alert and oriented to person and place. Insight, judgment and impulse control are impaired. 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 Patient also appears to be having significant medical issues including length, hepatitis C that appears active and a urinary tract infection. She is refusing any treatment at this time and will likely remain involuntarily here. 1.? ?Engage? patient in individual ,milieu, and group therapy ?2. ? We will attempt to gather collateral information from previous providers ?3. ? TO-15 minute checks on the unit. ?4.? Recommend sober living treatment at the highest level of care to which the patient is willing to commit. 5. Appreciate medical consult regarding hepatitis C, will repeat liver function test to determine whether patient is stabilizing or having fulminant liver failure. Liver function test today had not been obtained and refused by patient. 6. Continue current medications. Unfortunately patient refusing medications at this time. 7. Placed on 21-day hold 10/01/2022. Start Invega 6 mg p.o. daily with 20 mg Geodon IM given for p.o. refusal with plans of getting to the Invega Sustenna injection. Involuntary Hold Information 96 Hour Hold: 96 Hour Involuntary Admission: Yes 96 Hour Hold Ending Date: 10/01/22 96 Hour Hold Ending Time: 09:40 Attestations NPU Medical Necessity Statement*: Patient hospitalization is deemed medically necessary and the clinically appropriate intervention at this time. We will monitor and initiate medications and make changes as indicated. Likely length of stay of 7 to 10 days. Coding Level of Care Code Acute Code for Chg Fwd Diagnoses Acute psychosis F23 Paranoid delusion F22 Hepatitis C B19.20 Head lice B85.0
[2022-10-02 22:00] VITALS: BP 97/67; PULSE 71; RESP 15; O2SAT 98
[2022-10-03 06:00] VITALS: BP 130/92; PULSE 89; RESP 15; TEMP 36.7; O2SAT 96
[2022-10-03] MEDS: paliperidone ER 6 mg Tablet PO (10:36)
[2022-10-03 14:00] VITALS: BP 102/70; PULSE 78; RESP 18; O2SAT 97
--- NOTE | 2022-10-03 17:31 | W.PM.NPUPNS ---
Subjective NPU Subjective: Patient presented today continuing to take the Invega oral willingly with some coaxing/insistence. He talked about the possibility of the long-acting injectable which she seemed to be somewhat ambivalent about but seeming like she will do. We discussed getting another day or so of medication under her belt and giving the injection if there are no signs of problematic issues or allergies. She otherwise is mostly isolative and denying any new issues but is not very forthcoming or spontaneous with conversation. Mental Status Exam MSE Comments: This is a well-nourished well-developed white female in hospital scrubs looking older than her stated age with better hygiene in previous days and intermittent eye contact. No abnormal movements except for mild psychomotor retardation. More cooperative with exam in no acute distress. Speech was limited and mostly decreased rate and volume. Mood described as okay, affect was pleasant. Thought process linear. Thought content: Patient did not report suicidal or homicidal ideation, there were no delusions reported but paranoia and possible persecutory and hyperreligious delusions noted, she did not report auditory or visual hallucinations but was seen speaking to herself on several occasions. Attention and concentration were limited and memory was unreliable but none were formally tested. She is alert and oriented to person and place. Insight and judgment limited but improving and impulse control is impaired. Vitals/I&O/Wt Last Vital Signs Temp 98.0 F 10/03/22 06:00 Pulse 78 10/03/22 14:00 Resp 18 10/03/22 14:00 BP 102/70 10/03/22 14:00 Pulse Ox 97 10/03/22 14:00 O2 Del Method Room Air 10/03/22 06:00 Data NPU 09/29/22 10:13 09/29/22 10:13 A&P Assessment and plan (1) Acute psychosis: (2) Paranoid delusion: (3) Hepatitis C: (4) Head lice: Plan This is a 37-year-old white female with a history of psychotic disorder not only specified currently admitted to the neuropsychiatric unit with florid psychosis and some features of murray with no clear cause. Patient also appears to be having significant medical issues including length, hepatitis C that appears active and a urinary tract infection. She is refusing any treatment at this time and will likely remain involuntarily here. 1.? ?Engage? patient in individual ,milieu, and group therapy ?2. ? We will attempt to gather collateral information from previous providers ?3. ? TO-15 minute checks on the unit. ?4.? Recommend sober living treatment at the highest level of care to which the patient is willing to commit. 5. Appreciate medical consult regarding hepatitis C, will repeat liver function test to determine whether patient is stabilizing or having fulminant liver failure. Liver function test today had not been obtained and refused by patient. 6. Continue current medications. Unfortunately patient refusing medications at this time. 7. Placed on 21-day hold 10/01/2022. Started Invega 6 mg p.o. daily with 20 mg Geodon IM given for p.o. refusal. Taken the Invega with some insistence that we have discussed a plan to transition to the long-acting injectable Invega Sustenna. Involuntary Hold Information 96 Hour Hold: 96 Hour Involuntary Admission: Yes 96 Hour Hold Ending Date: 10/01/22 96 Hour Hold Ending Time: 09:40 Attestations NPU Medical Necessity Statement*: Patient hospitalization is deemed medically necessary and the clinically appropriate intervention at this time. We will monitor and initiate medications and make changes as indicated. Likely length of stay of 7 to 10 days. Coding Level of Care Code Acute Code for Chg Fwd Diagnoses Acute psychosis F23 Paranoid delusion F22 Hepatitis C B19.20 Head lice B85.0
[2022-10-03 22:00] VITALS: RESP 16
[2022-10-04 06:00] VITALS: RESP 15
[2022-10-04] MEDS: paliperidone ER 6 mg Tablet PO (08:14)
[2022-10-04 14:00] VITALS: BP 103/67; PULSE 73; RESP 16; TEMP 36.6; O2SAT 100
--- NOTE | 2022-10-04 18:06 | W.PM.NPUPNS ---
Subjective NPU Subjective: Patient presented today reporting that she is doing fine. She continues to be fairly hesitant with the idea of the long-acting injectable but we were talking about the fact that she can get it to a point where she was only taking 2 shots a year. By going to the [facility]. We discussed our position that that would be a foundational piece of her discharge plan, the transition to a long-acting injectable. Otherwise she is agreeable to taking the medication with the understanding that she would get an injection for refusal. Mental Status Exam MSE Comments: This is a well-nourished well-developed white female in hospital scrubs looking older than her stated age with better hygiene in previous days and intermittent eye contact. No abnormal movements except for mild psychomotor retardation. More cooperative with exam in no acute distress. Speech was limited and mostly decreased rate and volume. Mood described as okay, affect was pleasant. Thought process linear. Thought content: Patient did not report suicidal or homicidal ideation, there were no delusions reported but paranoia and possible persecutory and hyperreligious delusions noted, she did not report auditory or visual hallucinations but was seen speaking to herself on several occasions. Attention and concentration were limited and memory was unreliable but none were formally tested. She is alert and oriented to person and place. Insight and judgment limited but improving and impulse control is impaired. 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 Patient also appears to be having significant medical issues including length, hepatitis C that appears active and a urinary tract infection. She is refusing any treatment at this time and will likely remain involuntarily here. 1.? ?Engage? patient in individual ,milieu, and group therapy ?2. ? We will attempt to gather collateral information from previous providers ?3. ? TO-15 minute checks on the unit. ?4.? Recommend sober living treatment at the highest level of care to which the patient is willing to commit. 5. Appreciate medical consult regarding hepatitis C, will repeat liver function test to determine whether patient is stabilizing or having fulminant liver failure. Liver function test today had not been obtained and refused by patient. 6. Continue current medications. 7. Placed on 21-day hold 10/01/2022. Started Invega 6 mg p.o. daily with 20 mg Geodon IM given for p.o. refusal. Taken the Invega with some insistence and we continue to discuss a plan to transition to the long-acting injectable Invega Sustenna. Involuntary Hold Information 96 Hour Hold: 96 Hour Involuntary Admission: Yes 96 Hour Hold Ending Date: 10/01/22 96 Hour Hold Ending Time: 09:40 Attestations NPU Medical Necessity Statement*: Patient hospitalization is deemed medically necessary and the clinically appropriate intervention at this time. We will monitor and initiate medications and make changes as indicated. Likely length of stay of 7 to 10 days. Coding Level of Care Code Acute Code for Chg Fwd Diagnoses Acute psychosis F23 Paranoid delusion F22 Hepatitis C B19.20 Head lice B85.0
[2022-10-04 20:07] VITALS: BP 114/75; PULSE 74; RESP 17; TEMP 37; O2SAT 100
[2022-10-05 06:00] VITALS: BP 102/73; PULSE 82; RESP 15; TEMP 36.1; O2SAT 97
[2022-10-05] MEDS: paliperidone ER 6 mg Tablet PO (10:11)
[2022-10-05 14:00] VITALS: BP 105/70; PULSE 70; RESP 18; TEMP 36.3; O2SAT 99
--- NOTE | 2022-10-05 18:02 | P.NPUPN_ITS ---
Subjective NPU Subjective: Patient presented today reporting that she is feeling okay and certainly looking as if she feels a little better. She denies feeling guarded or having any significant paranoia or psychotic thoughts. We discussed her Invega and us wanting to transition her to IM treatment before she discharges. She continues to be resistant to that. We discussed the fact that she is on a 21-day hold and we have the ability to give the injection. However were trying to make this collaborative and wanted her to identify the benefit that being able to transition to even Invega Hafyera and 2 shots a year could be a very powerful tool and keeping her well. We discussed her considering this for tomorrow. Mental Status Exam MSE Comments: This is a well-nourished well-developed white female in hospital scrubs looking older than her stated age with better hygiene in previous days and intermittent eye contact. No abnormal movements except for mild psychomotor retardation. More cooperative with exam in no acute distress. Speech was a little more spontaneous and more normal rate with decreased volume. Mood described as okay, affect was pleasant. Thought process linear. Thought content: Patient did not report suicidal or homicidal ideation, there were no delusions reported and no clear delusions noted, she did not report auditory or visual hallucinations. Attention and concentration were limited and memory was unreliable but none were formally tested. She is alert and oriented to person and place. Insight and judgment limited but improving and impulse control is impaired. Vitals/I&O/Wt Last Vital Signs Temp 97.4 F L 10/05/22 14:00 Pulse 70 10/05/22 14:00 Resp 18 10/05/22 14:00 BP 105/70 10/05/22 14:00 Pulse Ox 99 10/05/22 14:00 O2 Del Method Room Air 10/05/22 06:00 Data NPU 09/29/22 10:13 09/29/22 10:13 A&P Assessment and plan (1) Acute psychosis: (2) Paranoid delusion: (3) Hepatitis C: (4) Head lice: Plan This is a 37-year-old white female with a history of psychotic disorder not only specified currently admitted to the neuropsychiatric unit with florid psychosis and some features of murray with no clear cause. Patient also appears to be having significant medical issues including length, hepatitis C that appears active and a urinary tract infection. She is refusing any treatment at this time and will likely remain involuntarily here. 1.? ?Engage? patient in individual ,milieu, and group therapy ?2. ? We will attempt to gather collateral information from previous providers ?3. ? TO-15 minute checks on the unit. ?4.? Recommend sober living treatment at the highest level of care to which the patient is willing to commit. 5. Appreciate medical consult regarding hepatitis C, will repeat liver function test to determine whether patient is stabilizing or having fulminant liver failure. Liver function test today had not been obtained and refused by lars fernández. 6. Continue current medications. 7. Placed on 21-day hold 10/01/2022. Started Invega 6 mg p.o. daily with 20 mg Geodon IM given for p.o. refusal. Taken the Invega with some insistence and we continue to discuss a plan to transition to the long-acting injectable Invega Sustenna. Involuntary Hold Information 96 Hour Hold: 96 Hour Involuntary Admission: Yes 96 Hour Hold Ending Date: 10/01/22 96 Hour Hold Ending Time: 09:40 Attestations NPU Medical Necessity Statement*: Patient hospitalization is deemed medically necessary and the clinically appropriate intervention at this time. We will monitor and initiate medications and make changes as indicated. Likely length of stay of 7 to 10 days. Coding Level of Care Code Acute Code for Chg Fwd Diagnoses Acute psychosis F23 Paranoid delusion F22 Hepatitis C B19.20 Head lice B85.0
[2022-10-05] MEDS: OLANZapine 10 mg ODT PO (20:02)
[2022-10-05 21:58] VITALS: BP 106/74; PULSE 79; RESP 16; TEMP 36.6; O2SAT 98
[2022-10-06 06:00] VITALS: RESP 15
[2022-10-06] MEDS: paliperidone ER 6 mg Tablet PO (08:53)
[2022-10-06 14:00] VITALS: BP 108/72; PULSE 90; RESP 18; TEMP 36.6; O2SAT 98
--- NOTE | 2022-10-06 18:14 | W.PM.NPUPNS ---
Subjective NPU Subjective: Patient presented today reporting that she is feeling okay. She denies feeling guarded or having any significant paranoia or psychotic thoughts. We discussed her Invega and us wanting to transition her to IM treatment before she discharges. We discussed giving her till Saturday and then we would initiate the injection. She continues to be resistant. Mental Status Exam MSE Comments: This is a well-nourished well-developed white female in hospital scrubs looking older than her stated age with better hygiene and intermittent eye contact. No abnormal movements except for mild psychomotor retardation. More cooperative with exam in no acute distress. Speech was a little more spontaneous and more normal rate with decreased volume. Mood described as okay, affect was pleasant. Thought process linear. Thought content: Patient did not report suicidal or homicidal ideation, there were no delusions reported and no clear delusions noted, she did not report auditory or visual hallucinations. Attention and concentration were limited and memory was unreliable but none were formally tested. She is alert and oriented to person and place. Insight and judgment limited but improving and impulse control is impaired. Vitals/I&O/Wt Last Vital Signs Temp 98 F 10/06/22 14:00 Pulse 90 10/06/22 14:00 Resp 18 10/06/22 14:00 BP 108/72 10/06/22 14:00 Pulse Ox 98 10/06/22 14:00 O2 Del Method Room Air 10/05/22 21:58 Data NPU 09/29/22 10:13 09/29/22 10:13 A&P Assessment and plan (1) Acute psychosis: (2) Paranoid delusion: (3) Hepatitis C: (4) Head lice: Plan This is a 37-year-old white female with a history of psychotic disorder not only specified currently admitted to the neuropsychiatric unit with florid psychosis and some features of murray with no clear cause. Patient also appears to be having significant medical issues including length, hepatitis C that appears active and a urinary tract infection. She is refusing any treatment at this time and will likely remain involuntarily here. 1.? ?Engage? patient in individual ,milieu, and group therapy ?2. ? We will attempt to gather collateral information from previous providers ?3. ? TO-15 minute checks on the unit. ?4.? Recommend sober living treatment at the highest level of care to which the patient is willing to commit. 5. Appreciate medical consult regarding hepatitis C, will repeat liver function test to determine whether patient is stabilizing or having fulminant liver failure. Liver function test today had not been obtained and refused by patient. 6. Continue current medications. 7. Placed on 21-day hold 10/01/2022. Started Invega 6 mg p.o. daily with 20 mg Geodon IM given for p.o. refusal. Taken the Invega with some insistence and we continue to discuss a plan to transition to the long-acting injectable Invega Sustenna. Involuntary Hold Information 96 Hour Hold: 96 Hour Involuntary Admission: Yes 96 Hour Hold Ending Date: 10/01/22 96 Hour Hold Ending Time: 09:40 Attestations NPU Medical Necessity Statement*: Patient hospitalization is deemed medically necessary and the clinically appropriate intervention at this time. We will monitor and initiate medications and make changes as indicated. Likely length of stay of 7 to 10 days. Coding Level of Care Code Acute Code for [facility] Fwd Diagnoses Acute psychosis F23 Paranoid delusion F22 Hepatitis C B19.20 Head lice B85.0
[2022-10-06 19:49] VITALS: BP 130/85; PULSE 83; RESP 14; TEMP 36.6; O2SAT 96
[2022-10-07 06:00] VITALS: BP 97/75; PULSE 86; RESP 14; O2SAT 100; BMI 23.8
[2022-10-07] MEDS: paliperidone ER 6 mg Tablet PO (08:34)
--- NOTE | 2022-10-07 10:05 | P.NPUPN_ITS ---
Subjective NPU Subjective: Patient presented today continuing to be very resistant to the idea of the injection. We discussed the fact that I have tried to work with her and her getting to the point where she identifies that this is the best viable approach to get out of here sooner. However tomorrow with a full treatment team here we will ensure that she gets the injection 234 mg IM to the deltoid of Invega [place] for the first loading dose. Mental Status Exam MSE Comments: This is a well-nourished well-developed white female in hospital scrubs looking older than her stated age with better hygiene and intermittent eye contact. No abnormal movements except for mild psychomotor retardation. More cooperative w ith exam in no acute distress. Speech was a little more spontaneous and more normal rate with decreased volume. Mood described as okay, affect was pleasant. Thought process linear. Thought content: Patient did not report suicidal or homicidal ideation, there were no delusions reported and no clear delusions noted, she did not report auditory or visual hallucinations. Attention and concentration were limited and memory was unreliable but none were formally tested. She is alert and oriented to person and place. Insight and judgment limited but improving and impulse control is impaired. Vitals/I&O/Wt Last Vital Signs Temp 97.8 F 10/06/22 19:49 Pulse 86 10/07/22 06:00 Resp 14 10/07/22 06:00 BP 97/75 10/07/22 06:00 Pulse Ox 100 10/07/22 06:00 O2 Del Method Room Air 10/05/22 21:58 Weight last 48 hrs Weight 69.037 kg Data NPU 09/29/22 10:13 09/29/22 10:13 A&P Assessment and plan (1) Acute psychosis: (2) Paranoid delusion: (3) Hepatitis C: (4) Head lice: Plan This is a 37-year-old white female with a history of psychotic disorder not only specified currently admitted to the neuropsychiatric unit with florid psychosis and some features of murray with no clear cause. Patient also appears to be having significant medical issues including length, hepatitis C that appears active and a urinary tract infection. She is refusing any treatment at this time and will likely remain involuntarily here. 1.? ?Engage? patient in individual ,milieu, and group therapy ?2. ? We will attempt to gather collateral information from previous providers ?3. ? TO-15 minute checks on the unit. ?4.? Recommend sober living treatment at the highest level of care to which the patient is willing to commit. 5. Appreciate medical consult regarding hepatitis C, will repeat liver function test to determine whether patient is stabilizing or having fulminant liver failure. Liver function test today had not been obtained and refused by patient. 6. Continue current medications. 7. Placed on 21-day hold 10/01/2022. Started Invega 6 mg p.o. daily with 20 mg Geodon IM given for p.o. refusal. Taken the Invega with some insistence and we continue to discuss a plan to transition to the long-acting injectable Invega Sustenna. We will give the injection tomorrow. Involuntary Hold Information 96 Hour Hold: 96 Hour Involuntary Admission: Yes 96 Hour Hold Ending Date: 10/01/22 96 Hour Hold Ending Time: 09:40 Attestations NPU Medical Necessity Statement*: Patient hospitalization is deemed medically necessary and the clinically appropriate intervention at this time. We will monitor and initiate medications and make changes as indicated. Likely length of stay of 7 to 10 days. Coding Level of Care Code Acute Code for Chg Fwd Diagnoses Acute psychosis F23 Paranoid delusion F22 Hepatitis C B19.20 Head lice B85.0
[2022-10-07 12:34] VITALS: BP 94/62; PULSE 59; RESP 16; TEMP 36.9; O2SAT 100
[2022-10-07] MEDS: benztropine 1 mg Tablet PO (18:15)
[2022-10-07] MEDS: OLANZapine 10 mg ODT PO (18:16)
[2022-10-07 19:54] VITALS: BP 109/73; PULSE 78; RESP 18; TEMP 36.4; O2SAT 97
[2022-10-08 06:00] VITALS: BP 111/79; PULSE 73; RESP 16; TEMP 36.9; O2SAT 97
[2022-10-08] MEDS: paliperidone ER 6 mg Tablet PO (07:50)
[2022-10-08] MEDS: paliperidone palmitate 234 mg Syringe IM (13:47)
--- NOTE | 2022-10-08 13:48 | PC.NURSE ---
INVGRACY SUSTENNA 234 MG GIVEN IM IN RIGHT DELTOID PER PHYSICIAN ORDER. WILL CONT TO MONITOR FOR INJECTION SITE FOR ANY REDNESS, SWELLING, OR IRRITATION LOT [id number] EXP 01/2024
[2022-10-08 13:50] VITALS: BP 107/70; PULSE 74; RESP 18; TEMP 36.7; O2SAT 98
--- NOTE | 2022-10-08 17:09 | W.PM.NPUPNS ---
Subjective NPU Subjective: Patient presented today continuing to be resistant to the injection but ultimately worked with her nurses and was able to take the Invega Sustenna 234 mg IM to the deltoid loading dose. We continued to speak about how being on the injectable would create some relief at discharge knowing that what she needs at this point is just to make her appointment. She reports that there are no other issues and had said that she would continue to take the medication but history suggests that her best bet is the long-acting injectable Mental Status Exam MSE Comments: This is a well-nourished well-developed white female in hospital scrubs looking older than her stated age with better hygiene and intermittent eye contact. No abnormal movements except for mild psychomotor retardation. More cooperative with exam in no acute distress. Speech was a little more spontaneous and more normal rate with decreased volume. Mood described as fine, affect was pleasant. Thought process linear. Thought content: Patient did not report suicidal or homicidal ideation, there were no delusions reported and no clear delusions noted, she did not report auditory or visual hallucinations. Attention and concentration were limited and memory was unreliable but none were formally tested. She is alert and oriented to person and place. Insight and judgment limited but improving and impulse control is impaired. 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 Patient also appears to be having significant medical issues including length, hepatitis C that appears active and a urinary tract infection. She is refusing any treatment at this time and will likely remain involuntarily here. 1.? ?Engage? patient in individual ,milieu, and group therapy ?2. ? We will attempt to gather collateral information from previous providers ?3. ? TO-15 minute checks on the unit. ?4.? Recommend sober living treatment at the highest level of care to which the patient is willing to commit. 5. Appreciate medical consult regarding hepatitis C, will repeat liver function test to determine whether patient is stabilizing or having fulminant liver failure. Liver function test today had not been obtained and refused by patient. 6. Continue current medications. 7. Placed on 21-day hold 10/01/2022. Started Invega 6 mg p.o. daily with 20 mg Geodon IM given for p.o. refusal. Taken the Invega with some insistence and we continue to discuss a plan to transition to the long-acting injectable Invega Sustenna. Invega Sustenna 234 mg IM to the deltoid loading dose given 10/08/2022. Involuntary Hold Information 96 Hour Hold: 96 Hour Involuntary Admission: Yes 96 Hour Hold Ending Date: 10/01/22 96 Hour Hold Ending Time: 09:40 Attestations NPU Medical Necessity Statement*: Patient hospitalization is deemed medically necessary and the clinically appropriate intervention at this time. We will monitor and initiate medications and make changes as indicated. Likely length of stay of 7 to 10 days. Coding Level of Care Code Acute Code for Chg Fwd Diagnoses Acute psychosis F23 Paranoid delusion F22 Hepatitis C B19.20 Head lice B85.0
[2022-10-08] MEDS: OLANZapine 10 mg ODT PO (20:21)
[2022-10-08 20:55] VITALS: BP 116/75; PULSE 71; RESP 17; TEMP 36.6; O2SAT 97
[2022-10-09 05:45] VITALS: BP 101/64; PULSE 50; RESP 16; TEMP 36.2; O2SAT 94
[2022-10-09] MEDS: paliperidone ER 6 mg Tablet PO (08:32)
[2022-10-09 14:00] VITALS: BP 112/82; PULSE 100; RESP 18; TEMP 36.2; O2SAT 97
--- NOTE | 2022-10-09 17:29 | W.PM.NPUPNS ---
Subjective NPU Subjective: Patient attended today reporting that she is feeling better. She continues to be resistant to medication though she did take the injection yesterday. We talked about her continued improvement and the likelihood that we could consider discharge at the end of the week which made her quite happy. Otherwise she denies any side effects to the medication and reports he is sleeping fine and eating better. Mental Status Exam MSE Comments: This is a well-nourished well-developed white female in hospital scrubs looking older than her stated age with better hygiene and intermittent eye contact. No abnormal movements except for mild psychomotor retardation. More cooperative with exam in no acute distress. Speech was a little more spontaneous and more normal rate with decreased volume. Mood described as okay, affect was pleasant. Thought process linear. Thought content: Patient did not report suicidal or homicidal ideation, there were no delusions reported and no clear delusions noted, she did not report auditory or visual hallucinations. Attention and concentration were limited and memory was unreliable but none were formally tested. She is alert and oriented to person and place. Insight and judgment limited but improving and impulse control is improving. 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 Patient also appears to be having significant medical issues including length, hepatitis C that appears active and a urinary tract infection. She is refusing any treatment at this time and will likely remain involuntarily here. 1.? ?Engage? patient in individual ,milieu, and group therapy ?2. ? We will attempt to gather collateral information from previous providers ?3. ? TO-15 minute checks on the unit. ?4.? Recommend sober living treatment at the highest level of care to which the patient is willing to commit. 5. Appreciate medical consult regarding hepatitis C, will repeat liver function test to determine whether patient is stabilizing or having fulminant liver failure. Liver function test today had not been obtained and refused by patient. 6. Continue current medications. 7. Placed on 21-day hold 10/01/2022. Started Invega 6 mg p.o. daily with 20 mg Geodon IM given for p.o. refusal. Taken the Invega with some insistence and we continue to discuss a plan to transition to the long-acting injectable Invega Sustenna. Invega Sustenna 234 mg IM to the deltoid loading dose given 10/08/2022. Involuntary Hold Information 96 Hour Hold: 96 Hour Involuntary Admission: Yes 96 Hour Hold Ending Date: 10/01/22 96 Hour Hold Ending Time: 09:40 Attestations NPU Medical Necessity Statement*: Patient hospitalization is deemed medically necessary and the clinically appropriate intervention at this time. We will monitor and initiate medications and make changes as indicated. Likely length of stay of 3-6 days. Coding Level of Care Code Acute Code for Chg Fwd Diagnoses Acute psychosis F23 Paranoid delusion F22 Hepatitis C B19.20 Head lice B85.0
[2022-10-09] MEDS: OLANZapine 10 mg ODT PO (18:02)
[2022-10-09 20:14] VITALS: BP 102/67; PULSE 71; RESP 17; TEMP 36.6; O2SAT 99
[2022-10-10 06:00] VITALS: BP 105/73; PULSE 116; RESP 15; O2SAT 97
[2022-10-10] MEDS: paliperidone ER 6 mg Tablet PO (08:45)
--- NOTE | 2022-10-10 13:35 | W.PM.NPUPNS ---
Subjective NPU Subjective: Patient presented today reporting that she doing okay with the medication. We discussed the possibility of discharge in the next week. When she was happy about. However we discussed her next injection she reverted back to wanting to take oral medication. We discussed the fact that the goal is to get her to taking 2-4 shots a year depending on whether she is on the Invega Trinza versus Invega Hafyera. We discussed the fact that to get to the point however she needs to take into loading doses the last of which will be given before discharge and then a follow-up dose 5 weeks from October 08. She continues to be resistant to medication. Mental Status Exam MSE Comments: This is a well-nourished well-developed white female in hospital scrubs looking older than her stated age with better hygiene and intermittent eye contact. No abnormal movements except for mild psychomotor retardation. More cooperative with exam in no acute distress. Speech was a little more spontaneous and more normal rate with decreased volume. Mood described as okay, affect was pleasant. Thought process linear. Thought content: Patient did not report suicidal or homicidal ideation, there were no delusions reported and no clear delusions noted, she did not report auditory or visual hallucinations. Attention and concentration were limited and memory was unreliable but none were formally tested. She is alert and oriented to person and place. Insight and judgment limited but improving and impulse control is improving. 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 Patient also appears to be having significant medical issues including length, hepatitis C that appears active and a urinary tract infection. She is refusing any treatment at this time and will likely remain involuntarily here. 1.? ?Engage? patient in individual ,milieu, and group therapy ?2. ? We will attempt to gather collateral information from previous providers ?3. ? TO-15 minute checks on the unit. ?4.? Recommend sober living treatment at the highest level of care to which the patient is willing to commit. 5. Appreciate medical consult regarding hepatitis C, will repeat liver function test to determine whether patient is stabilizing or having fulminant liver failure. Liver function test today had not been obtained and refused by patient. 6. Continue current medications. 7. Placed on 21-day hold 10/01/2022. Started Invega 6 mg p.o. daily with 20 mg Geodon IM given for p.o. refusal. Taken the Invega with some insistence and we continue to discuss a plan to transition to the long-acting injectable Invega Sustenna. Invega Sustenna 234 mg IM to the deltoid loading dose given 10/08/2022. Involuntary Hold Information 96 Hour Hold: 96 Hour Involuntary Admission: Yes 96 Hour Hold Ending Date: 10/01/22 96 Hour Hold Ending Time: 09:40 Attestations NPU Medical Necessity Statement*: Patient hospitalization is deemed medically necessary and the clinically appropriate intervention at this time. We will monitor and initiate medications and make changes as indicated. Likely length of stay of 3-7 days. Coding Level of Care Code Acute Code for Chg Fwd Diagnoses Acute psychosis F23 Paranoid delusion F22 Hepatitis C B19.20 Head lice B85.0
[2022-10-10 14:00] VITALS: BP 104/71; PULSE 81; RESP 17; TEMP 36.5; O2SAT 99
[2022-10-10] MEDS: OLANZapine 10 mg ODT PO (18:13)
[2022-10-10 21:06] VITALS: BP 109/63; PULSE 116; RESP 17; TEMP 36.9; O2SAT 98
[2022-10-11 06:00] VITALS: BP 111/77; PULSE 87; RESP 16; O2SAT 96
[2022-10-11] MEDS: paliperidone ER 6 mg Tablet PO (08:37)
--- NOTE | 2022-10-11 12:19 | W.PM.NPUPNS ---
Subjective NPU Subjective: Patient presented today continuing to be resistant to medication. We discussed a plan for discharge soon but her needing the second of the loading doses of the Invega Sustenna and she understood and currently agrees to proceed as is documented in this note. She is working with the social work team for options for discharge and does not have a guardian but continues to defer decisions to a conversation with her sibling. Mental Status Exam MSE Comments: This is a well-nourished well-developed white female in hospital scrubs looking older than her stated age with better hygiene and intermittent eye contact. No abnormal movements except for mild psychomotor retardation. More cooperative with exam in no acute distress. Speech was a little more spontaneous and more normal rate with decreased volume. Mood described as okay, affect was pleasant. Thought process linear. Thought content: Patient did not report suicidal or homicidal ideation, there were no delusions reported and no clear delusions noted, she did not report auditory or visual hallucinations. Attention and concentration were limited and memory was unreliable but none were formally tested. She is alert and oriented to person and place. Insight and judgment limited but improving and impulse control is improving. 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 Patient also appears to be having significant medical issues including length, hepatitis C that appears active and a urinary tract infection. She is refusing any treatment at this time and will likely remain involuntarily here. 1.? ?Engage? patient in individual ,milieu, and group therapy ?2. ? We will attempt to gather collateral information from previous providers ?3. ? TO-15 minute checks on the unit. ?4.? Recommend sober living treatment at the highest level of care to which the patient is willing to commit. 5. Appreciate medical consult regarding hepatitis C, will repeat liver function test to determine whether patient is stabilizing or having fulminant liver failure. Liver function test today had not been obtained and refused by patient. 6. Continue current medications. 7. Placed on 21-day hold 10/01/2022. Started Invega 6 mg p.o. daily with 20 mg Geodon IM given for p.o. refusal. Taken the Invega with some insistence and we continue to discuss a plan to transition to the long-acting injectable Invega Sustenna. Invega Sustenna 234 mg IM to the deltoid loading dose given 10/08/2022. Involuntary Hold Information 96 Hour Hold: 96 Hour Involuntary Admission: Yes 96 Hour Hold Ending Date: 10/01/22 96 Hour Hold Ending Time: 09:40 Attestations NPU Medical Necessity Statement*: Patient hospitalization is deemed medically necessary and the clinically appropriate intervention at this time. We will monitor and initiate medications and make changes as indicated. Likely length of stay of 2-6 days. Coding Level of Care Code Acute Code for Chg Fwd Diagnoses Acute psychosis F23 Paranoid delusion F22 Hepatitis C B19.20 Head lice B85.0
[2022-10-11 14:00] VITALS: BP 109/77; PULSE 109; RESP 17; TEMP 36.4; O2SAT 98
[2022-10-11] MEDS: OLANZapine 10 mg ODT PO (17:58)
[2022-10-11 19:53] VITALS: BP 114/73; PULSE 86; RESP 17; TEMP 37; O2SAT 96
[2022-10-12 06:00] VITALS: BP 108/77; PULSE 105; RESP 18; TEMP 37; O2SAT 97
[2022-10-12] MEDS: paliperidone ER 6 mg Tablet PO (08:09)
--- NOTE | 2022-10-12 13:48 | P.NPUPN_ITS ---
Subjective NPU Subjective: Patient presented today reporting that she is doing fine. We discussed the possibility of discharge at the beginning of the week after she got her second loading dose of Invega Sustenna. We continued to discuss concerns about her continuing her medication given that has been the challenge for her wellness. She continues to have some resistance about IM medication and medication in general. She reports she would take her medication but unfortunately that has not been the case. Mental Status Exam MSE Comments: This is a well-nourished well-developed white female in hospital scrubs looking older than her stated age with better hygiene and intermittent eye contact. No abnormal movements except for mild psychomotor retardation. More cooperative with exam in no acute distress. Speech was a little more spontaneous and more normal rate with decreased volume. Mood described as okay, affect was pleasant. Thought process linear. Thought content: Patient did not report suicidal or ho micidal ideation, there were no delusions reported and no clear delusions noted, she did not report auditory or visual hallucinations. Attention and concentration were limited and memory was unreliable but none were formally tested. She is alert and oriented to person and place. Insight and judgment limited but improving and impulse control is improving. Vitals/I&O/Wt Last Vital Signs Temp 98.6 F 10/12/22 06:00 Pulse 105 H 10/12/22 06:00 Resp 18 10/12/22 06:00 BP 108/77 10/12/22 06:00 Pulse Ox 97 10/12/22 06:00 O2 Del Method Room Air 10/12/22 06:00 Data NPU 09/29/22 10:13 09/29/22 10:13 A&P Assessment and plan (1) Acute psychosis: (2) Paranoid delusion: (3) Hepatitis C: (4) Head lice: Plan This is a 37-year-old white female with a history of psychotic disorder not only specified currently admitted to the neuropsychiatric unit with florid psychosis and some features of murray with no clear cause. Patient also appears to be having significant medical issues including length, hepatitis C that appears ac tive and a urinary tract infection. She is refusing any treatment at this time and will likely remain involuntarily here. 1.? ?Engage? patient in individual ,milieu, and group therapy ?2. ? We will attempt to gather collateral information from previous providers ?3. ? TO-15 minute checks on the unit. ?4.? Recommend sober living treatment at the highest level of care to which the patient is willing to commit. 5. Appreciate medical consult regarding hepatitis C, will repeat liver function test to determine whether patient is stabilizing or having fulminant liver failure. Liver function test today had not been obtained and refused by patient. 6. Continue current medications. 7. Placed on 21-day hold 10/01/2022. Started Invega 6 mg p.o. daily with 20 m g Geodon IM given for p.o. refusal. Taken the Invega with some insistence and we continue to discuss a plan to transition to the long-acting injectable Invega Sustenna. Invega Sustenna 234 mg IM to the deltoid loading dose given 10/08/2022. Involuntary Hold Information 96 Hour Hold: 96 Hour Involuntary Admission: Yes 96 Hour Hold Ending Date: 10/01/22 96 Hour Hold Ending Time: 09:40 Attestations NPU Medical Necessity Statement*: Patient hospitalization is deemed medically necessary and the clinically appropriate intervention at this time. We will monitor and initiate medications and make changes as indicated. Likely length of stay of 3-5 days. Coding Level of Care Code Acute Code for Chg Fwd Diagnoses Acute psychosis F23 Paranoid delusion F22 Hepatitis C B19.20 Head lice B85.0
[2022-10-12 14:00] VITALS: BP 106/73; PULSE 95; RESP 16; TEMP 36.4; O2SAT 97
[2022-10-12] MEDS: OLANZapine 10 mg ODT PO (18:02)
[2022-10-12 21:53] VITALS: BP 103/67; PULSE 78; RESP 18; O2SAT 98
[2022-10-13 06:00] VITALS: BP 102/71; PULSE 105; RESP 16; TEMP 36.2; O2SAT 96
--- NOTE | 2022-10-13 07:26 | P.NPUPN_ITS ---
Subjective NPU Subjective: Patient presented today continuing to show signs of improvement. She continues to identify a plan to work with her family for support after discharge. We discussed that she is due for her second injection on Saturday and then she will be due in 4 weeks and that would be the start of the monthly process. By encouraging her still to consider Invega Trinza or Invega Glena given her clear resistance to medication and how well she is doing on the medication. We discussed Dr. Puentes coming tomorrow to pickle solution maker ongoing treatment. Mental Status Exam MSE Comments: This is a well-nourished well-developed white female in hospital scrubs looking older than her stated age with better hygiene and improving eye contact. No abnormal movements except for mild psychomotor retardation. More cooperative with exam in no acute distress. Speech was more spontaneous and more normal rate with decreased volume. Mood described as decent, affect was pleasant. Thought process linear. Thought content: Patient did not report suicidal or homicidal ideation, there were no delusions reported and no clear delusions noted, she did not report auditory or visual hallucinations. Attention and concentration appeared intact and memory was more reliable but none were formally tested. She is alert and oriented x3. Insight and judgment limited but improving and impulse control is improving. Vitals/I&O/Wt Last Vital Signs Temp 97.2 F L 10/13/22 06:00 Pulse 105 H 10/13/22 06:00 Resp 16 10/13/22 06:00 BP 102/71 10/13/22 06:00 Pulse Ox 96 10/13/22 06:00 O2 Del Method Room Air 10/13/22 06:00 Data NPU 09/29/22 10:13 09/29/22 10:13 A&P Assessment and plan (1) Acute psychosis: (2) Paranoid delusion: (3) Hepatitis C: (4) Head lice: Plan This is a 37-year-old white female with a history of psychotic disorder not only specified currently admitted to the neuropsychiatric unit with florid psychosis and some features of murray with no clear cause. Patient also appears to be having significant medical issues including length, hepatitis C that appears active and a urinary tract infection. She is refusing any treatment at this time and will likely remain involuntarily here. 1.? ?Engage? patient in individual ,milieu, and group therapy ?2. ? We will attempt to gather collateral information from previous providers ?3. ? TO-15 minute checks on the unit. ?4.? Recommend sober living treatment at the highest level of care to which the patient is willing to commit. 5. Appreciate medical consult regarding hepatitis C, will repeat liver function test to determine whether patient is stabilizing or having fulminant liver failure. Liver function test today had not been obtained and refused by patient. 6. Continue current medications. 7. Placed on 21-day hold 10/01/2022. Started Invega 6 mg p.o. daily with 20 mg Geodon IM given for p.o. refusal. Taken the Invega with some insistence and we continue to discuss a plan to transition to the long-acting injectable Invega Sustenna. Invega Sustenna 234 mg IM to the deltoid loading dose given 10/08/2022. Involuntary Hold Information 96 Hour Hold: 96 Hour Involuntary Admission: Yes 96 Hour Hold Ending Date: 10/01/22 96 Hour Hold Ending Time: 09:40 Attestations NPU Medical Necessity Statement*: Patient hospitalization is deemed medically necessary and the clinically appropriate intervention at this time. We will monitor and initiate medications and make changes as indicated. Likely length of stay of 2-4 days. Coding Level of Care Code Acute Code for Chg Fwd Diagnoses Acute psychosis F23 Paranoid delusion F22 Hepatitis C B19.20 Head lice B85.0
[2022-10-13] MEDS: paliperidone ER 6 mg Tablet PO (09:09)
[2022-10-13 14:00] VITALS: BP 114/74; PULSE 105; RESP 18; TEMP 36.6; O2SAT 96
[2022-10-13] MEDS: OLANZapine 10 mg ODT PO (17:53)
[2022-10-13 21:15] VITALS: BP 102/69; PULSE 77; RESP 18; TEMP 36.7; O2SAT 97
[2022-10-14 06:00] VITALS: BP 122/77; PULSE 82; RESP 18; TEMP 36.4; O2SAT 96
--- NOTE | 2022-10-14 07:40 | PC.NURSE ---
PLEASANT WITH STAFF INTERACTION, COOPERATIVE WITH SHIFT ASSESSMENT, DENIES SI/HI/AVH CURRENTLY. TOOK A SHOWER AND COMBED HAIR THIS MORNING
[2022-10-14] MEDS: paliperidone ER 6 mg Tablet PO (08:02)
[2022-10-14 14:00] VITALS: BP 130/78; PULSE 106; RESP 18; TEMP 36.7; O2SAT 96
--- NOTE | 2022-10-14 16:45 | W.PM.NPUPNS ---
Subjective NPU Subjective: Patient is a 37-year-old white female admitted with psychosis who remains here on a 21-day hold. She had reported feeling much better. She was unable to clearly report what had led to her hospitalization although she had reported in the past that she may have been diagnosed with bipolar disorder. She reported that she would remain agreeable with taking a monthly shot and was informed that tomorrow would be her second shot of Invega. She had been more compliant and reported no paranoia. She had reported no auditory hallucinations. She had denied any drug use prior to arriving here in the hospital although she had reported having used alcohol in the past. Mental Status Exam MSE Comments: This is a well-nourished well-developed white female in hospital scrubs looking older than her stated age with better hygiene and improving eye contact. No abnormal movements except for mild psychomotor retardation. More cooperative with exam in no acute distress. Speech was more spontaneous with normal rate and prosody. Mood described as good. Her affect was brighter. Thought process was linear. Thought content: Patient did not report suicidal or homicidal ideation, there were no delusions reported andshe did not report auditory or visual hallucinations. Attention and concentration appeared intact and memory was more reliable but none were formally tested. She is alert and oriented x3. Insight and judgment limited but improving and impulse control is improving. 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 Patient also appears to be having significant medical issues including length, hepatitis C that appears active and a urinary tract infection. 1.? ?Engage? patient in individual ,milieu, and group therapy ?2. ? TO-15 minute checks on the unit. ?3.? Recommend sober living treatment at the highest level of care to which the patient is willing to commit. 4. Check LFT, 5. Reduce Invega to 3 mg daily and order second Invega Sustenna 156 mg to be given tomorrow. 6. Placed on 21-day hold 10/01/2022. Invega Sustenna 234 mg IM to the deltoid loading dose given 10/08/2022. Involuntary Hold Information 96 Hour Hold: 96 Hour Involuntary Admission: Yes 96 Hour Hold Ending Date: 10/01/22 96 Hour Hold Ending Time: 09:40 Attestations NPU Medical Necessity Statement*: Patient hospitalization is deemed medically necessary and the clinically appropriate intervention at this time. We will monitor and initiate medications and make changes as indicated. Likely length of stay of 2-4 days. Coding Level of Care Code Acute Code for Chg Fwd Diagnoses Acute psychosis F23 Paranoid delusion F22 Hepatitis C B19.20 Head lice B85.0
[2022-10-14] MEDS: OLANZapine 10 mg ODT PO (18:11)
[2022-10-14 18:28] LABS: Alanine Aminotransferase 88 U/L (0-33); Albumin Level 3.8 g/dL (3.5-5.2); Alkaline Phosphatase 61 U/L (35-105); Aspartate Amino Transferase 25 U/L (0-32); Globulin 2.9 g/dL (1.3-4.6); Total Bilirubin 0.3 mg/dL (0.15-1.2); Total Protein 6.7 g/dL (6.6-8.7)
[2022-10-14 20:09] VITALS: BP 116/84; PULSE 96; RESP 20; TEMP 36.8; O2SAT 96
[2022-10-15 06:00] VITALS: BP 119/69; PULSE 98; RESP 18; O2SAT 97
[2022-10-15] MEDS: paliperidone ER 6 mg Tablet 3 MG PO (08:08)
[2022-10-15] MEDS: paliperidone palmitate 156 mg Syringe IM (10:03)
--- NOTE | 2022-10-15 10:09 | PC.NURSE ---
Administered Invega 156mg/mL in patient's right deltoid muscle. Lot: [id number]. Exp: 01/31. No concerns
[2022-10-15 14:00] VITALS: BP 114/76; PULSE 106; RESP 14; TEMP 36.6; O2SAT 96
--- NOTE | 2022-10-15 17:01 | W.PM.NPUPNS ---
Subjective NPU Subjective: Patient is a 37-year-old white female admitted with psychosis who remains here on a 21-day hold. Patient had reported having difficulties falling asleep and requested that the Klonopin had been helpful for periods of time where she had not been able to sleep for several days in a row. She had not been aggressive nor has she appeared confused on the milieu today. She had been agreeable to placement in a retirement if it were to be found. She had reported that she had not had any previous problems with murray in the past although she had indicated having been tried on medications that were commonly used for treating psychosis and murray. She was redirectable on the unit. She had improved ability to manage her self-care. She denied any nightmares or flashbacks at this time. She had reported no cravings for any substances although she had reported a past history of having used a significant amount of cannabis. Patient was informed of the concern that increased use of cannabis may lead to increased likelihood of psychotic symptoms. Mental Status Exam MSE Comments: This is a well-nourished well-developed white female in hospital scrubs looking older than her stated age with adequate hygiene and improving eye contact. No abnormal movements other than mild psychomotor retardation. She was more cooperative with exam in no acute distress. Speech was more spontaneous with normal rate and prosody. Mood described as better. Her affect was brighter and mood congruent today. Thought process was linear. Thought content: Patient did not report suicidal or homicidal ideation, there were no delusions reported and she did not report auditory or visual hallucinations. Attention and concentration appeared intact and memory was more reliable but none were formally tested. She is alert and oriented x3. Insight and judgment limited but improving and impulse control is improving. 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 Patient also appears to be having significant medical issues including length, hepatitis C that appears active and a urinary tract infection. 1.? ?Engage? patient in individual ,milieu, and group therapy ?2. ? TO-15 minute checks on the unit. ?3.? Recommend sober living treatment at the highest level of care to which the patient is willing to commit. 4. Check LFT, 5. Discontinue Invega oral and order second Invega Sustenna 156 mg given today. 6. Likely discharge tommorow. Involuntary Hold Information 96 Hour Hold: 96 Hour Involuntary Admission: Yes 96 Hour Hold Ending Date: 10/01/22 96 Hour Hold Ending Time: 09:40 Attestations NPU Medical Necessity Statement*: Patient hospitalization is deemed medically necessary and the clinically appropriate intervention at this time. We will monitor and initiate medications and make changes as indicated. Likely length of stay of 1-2 days. Coding Level of Care Code Acute Code for g Fwd Diagnoses Acute psychosis F23 Paranoid delusion F22 Hepatitis C B19.20 Head lice B85.0
[2022-10-15] MEDS: CLONazepam 0.5 mg Tablet PO ×2 (19:17→19:51)
[2022-10-15] MEDS: OLANZapine 10 mg ODT PO (19:17)
--- NOTE | 2022-10-15 19:19 | PC.NURSE ---
Went to administer clonazepam to patient. Patient wanted to look at pill and the pill's package. Patient said that it was not a clonazepam. She stated I know what a klonopin looks like, and that's not it . I informed patient of different pill manufacturers resulting in different colors of medication. Patient said she wasn't going to take the med.
[2022-10-15 20:07] VITALS: BP 116/74; PULSE 103; RESP 18; TEMP 37; O2SAT 97
[2022-10-16 06:00] VITALS: BP 117/82; PULSE 126; RESP 18; TEMP 36.8; O2SAT 97
--- NOTE | 2022-10-16 12:41 | P.NPUDS_ITS ---
Diagnoses at Discharge Discharge Diagnosis (1) Acute psychosis: Status: Acute (2) Paranoid delusion: Status: Acute (3) Hepatitis C: Status: Acute (4) Head lice: Status: Acute Reason for Visit Reason for Visit: 96 Brief History: History of Present Illness Yessica Vasquez is a 37 year old female with a previous history of psychosis admitted here in June 2021 who presented to the emergency department by law enforcement.? She had apparently been convinced that the law enforcement was trying to put something in her neck and she had made an attempt to slice her throat.? She was placed here on a 96-hour hold and was initially treated for head lice in the intensive care unit with additional medical problems including elevated liver function tests.? She was transferred to the neuropsychiatric unit today for further evaluation and treatment.? She had been unable to describe why she was in the hospital.? She had appeared quite confused and stated that she was here for the truth.? She had reported that the police had brought her here.? She had appeared at times distracted and the interview was paused briefly as the patient had appeared to say something to someone that was not in the room.? She had refused to take any medications and was unwilling to discuss any of the reasons that she may have been placed here.? She did report that she was in a place where she could seen and was reporting that she felt that there was a special reason for her to be here at this time.? She denied any thoughts of hurting herself or others.? She was informed that she was here involuntarily and did not appear to be willing to discuss her problems any further.? She had refused all medications involved in her potential treatment although she had reported having active symptoms suggestive of a urinary tract infection.? She had refused to have any further testing done as she had reported that there may be poison in the needle. Past psychiatric history: Unknown other than reports that the patient had been hospitalized here in June 2021. Drug and alcohol history: Reported history of alcohol abuse and intravenous drug use. Legal history: Unknown history: Unknown Medications: None Surgeries: Refused to answer Allergies: Morphine and bee venom protein Medical history: Hepatitis C active, head lice active, urinary tract infection Social history: Patient reports that she was born in [place] and reports having graduated from high school while residing with her mother.? She states that she had previously lived in [place] and had worked.? She reports having 4 children.? She did not elaborate any further other than stating that she lives with a good friend name Mark in [place]. Exerpt provided here from Discharge Summary from June 2021 at [facility] a is believed that the air however you Discharge Diagnosis (1) Psychosis: ?Status:?Acute ?Qualifiers: ?Psychosis type:?other? Qualified Code(s):?F28 - Other psychotic disorder not due to a substance or known physiological condition (2) History of alcohol abuse: ?Status:?Chronic (3) History of intravenous drug abuse: ?Status:?Chronic (4) RLS (restless legs syndrome): ?Status:?Chronic (5) GERD (gastroesophageal reflux disease): ?Status:?Chronic ?Qualifiers: ?Esophagitis presence:?esophagitis presence not specified? Qualified Code(s):?K21.9 - Gastro-esophageal reflux disease without esophagitis (6) Cannabis use disorder, moderate, dependence: ?Status:?Chronic (7) Post-traumatic stress disorder, chronic: ? (8) Anxiety: ?Status:?Chronic (9) Essential (primary) hypertension: ?Status:?Chronic (10) Mixed hyperlipidemia: ?Status court order 96? Brief History:? History of Present Illness Yessica Vasquez is a 36 year old female who was admitted from our emergency department yesterday with the following report: General:?? Chief Complaint: Psychiatric Symptoms Stated Complaint: court order 96 Time Seen by Provider: 06/22/21 19:27 Source: patient and police Mode of arrival: other (police custody) Limitations: no limitations History of Present Illness:?? HPI Narrative: Patient is a 36-year-old female who presents to ED today in police custody after they served her 96-hour hold paperwork.? Patient is essentially denying all accusations and states she does not know why she is here. Patient's hold paperwork is very lengthy and some of it is illegible. It seems to consistent of several random incidents-I will try and describe here: She constantly calls ambulances but then when she arrives to the hospital immediately leaves.? She apparently was missing for 2 days and then found standing in a dollar store opening and closing a freezer door.? Her 13-year-old son went to an all-night [employer] but states after an hour she grabbed a pellet/BB gun and went to go try to pick him up.? Hold paperwork states she has not bathed in over a month.? She apparently placed her son in school and then immediately after one day decided she was moving and took him back out of school.? She has disappeared on several occasions for days. She apparently has gotten knives and threatened people with them-even her 13-year-old son. She has threatened to jump out of vehicles. She has slept with knives under her pillow. MD complaint: other (96 hour hold) Associated symptoms: Deny auditory hallucinations, visual hallucinations, depression, homicidal ideation or suicidal ideation Treatments prior to arrival: placed on mental health hold. She was admitted to the neuropsychiatry unit for treatment of these issues.She says that everything in the affidavit from her aunt is a lie.? She says that her aunt is trying to get her children from her.? She says that she did not go to a [place] with a pellet gun.? She says that she does not have a car.? She does not remember anything about her son going to a [employer].? She was told that her thinking did not appear to be clear last night in the emergency room.? She did not want them to draw her blood because she said that there was poison on the needle.? She said that she has a phobia of needles ever since her many years ago gave her an injection of something and she woke up with numbness and other problems.? I asked her if she thought that it was logical to think that the hospital would be purposely putting poison on the needle to draw her blood and she did not answer.? I tried again and she still would not answer whether that was logical or not.? He denies thinking that anyone else was out to get her other than her aunt.? She denies any difficulty recently with sleep or appetite.? She denies hearing any voices or seeing anything that is not there.? She said that she was depressed and having difficulties when she saw Dr. Rader last year.? She said that the medications that Dr. Rader gave her did not help last year.? She says that she has wondered she just visualizes something she can fall asleep without difficulties.? She denies having nightmares.? She does not feel that she has been depressed lately.? She has benzodiazepines in her urine at her previous admission and again last night in the emergency room.? She denies using any benzodiazepines.? She did ask for benzodiazepines during the last admission but was advised why that was a bad idea.? After I told her that she had benzodiazepine she said ?well maybe give me a couple of Valium. ? She denies using alcohol, methamphetamine, marijuana or any drugs.? She does not want to take any drugs.? I asked her about the prazosin that her primary care provider gave her.? She did not know what that was for. Hospital Course Hospital Course She slowly acclimated to the individual, group and milieu therapies provided.? He refused medications.? She was pacing and talking to herself most of the time during the day.? She slept fairly well.? He never gave evidence that she was a threat to herself or others.? She was able to contract for safety outside hospital prior to discharge.? During the hospitalization, patient had routine laboratory studies which were within normal limits except for few outliers.? Additionally there was a general medical evaluation which was also within normal limits and revealed no new acute processes. Discharge Summary: At the time of discharge, lethality was denied and psychosis might have been decreased.? Mood and anxiety were well managed.? Patient endorsed a plan to follow-up with the aftercare recommendations of the treatment team.? Patient was evaluated and deemed to be absent credible lethality, and had achieved the maximum benefit from an inpatient hospitalization, so was discharged. Hospital Course Hospital Course During the hospitalization, patient had routine laboratory studies which were within normal limits except for few outliers. Additionally there was a general medical evaluation which was also within normal limits and revealed no new acute processes. At the time of discharge, lethality was denied and psychosis was resolving. Mood and anxiety were well managed. Patient endorsed a plan to avoid all drugs of abuse and follow-up with the aftercare recommendations of the treatment team. The patient had initially required substantial interventions by the medical team to help manage her lungs infestation. She had been somewhat noncooperative and refusing to take medications but was placed on a 21-day hold and was started on Invega and later transition to the intramuscular Invega sustain. She had received both doses of Invega sustain at 234 mg and 1 week later 156 mg with notable improvement and a substantial reduction in her psychotic symptoms. She had remained somewhat guarded regarding use of oral medications but was agreeable to continuing with the medications as prescribed prior to discharge. She was informed that she would require another intramuscular injection of paliperidone around November 12, 2022. Patient was evaluated and deemed to be absent credible lethality, and had achieved the maximum benefit from an inpatient hospitalization, so was discharged. Involuntary Hold Information 96 Hour Hold: 96 Hour Involuntary Admission: Yes 96 Hour Hold Ending Date: 10/01/22 96 Hour Hold Ending Time: 09:40 Mental Status Exam MSE Comments: This is a well-nourished well-developed white female in hospital scrubs looking older than her stated age with adequate hygiene and improving eye contact. No abnormal movements other than mild psychomotor retardation. She was more cooperative with exam in no acute distress. Speech was more spontaneous with normal rate and prosody. Mood described as better. Her affect was brighter and mood congruent today. Thought process was linear. Thought content: Patient did not report suicidal or homicidal ideation, there were no delusions reported and she did not report auditory or visual hallucinations. Attention and concentration appeared intact and memory was more reliable but none were formally tested. She is alert and oriented x3. Insight and judgment limited but improving and impulse control is improving. Discharge Data Studies Completed and Pending: Completed Studies During Hospitalization Category Date Time Status CT abdomen pelvis wo con [id number] Rout ine Cat Scan 09/25/22 11:59 Completed Radiology Impressions Abdomen/Pelvis CT 09/25/22 11:59 IMPRESSION: 1. Very minimal prominence of the RIGHT renal pelvis. No stones identified. This may be an extrarenal pelvis. No calyceal dilatation. 2. Normal appendix. 3. No free fluid. Laboratory Results WBC 3.4 10^3/uL (4.0- 10.0) L 09/29/22 10:13 RBC 4.57 10^6/uL (4.1 -5.3) 09/29/22 10:13 Hgb 14.3 g/dL (11.5-1 5.3) 09/29/22 10:13 Hct 45.9 % (37.0-47.0 ) 09/29/22 10:13 MCV 100.4 fl (81-99) H 09/29/22 10:13 MCH 31.3 pg (28.0-34. 0) 09/29/22 10:13 MCHC 31.2 g/dL (30.0-3 6.0) 09/29/22 10:13 RDW 12.7 % (12.1-15.1 ) 09/29/22 10:13 Plt Count 126 10^3/cmm (130 -400) L 09/29/22 10:13 MPV 10.0 fL (7.4-10.4 ) 09/29/22 10:13 Neut % (Auto) 54.4 % 09/29/22 10:13 Lymph % (Auto) 27.6 % 09/29/22 10:13 [place] % (Auto) 10.3 % 09/29/22 10:13 Eos % (Auto) 5.9 % 09/29/22 10:13 Baso % (Auto) 0.9 % 09/29/22 10:13 Reticulocyte % (Au to) 2.0 % (0.5-2.0) 09/28/22 09:50 Neut # (Auto) 1.86 10^3/uL (1.8 -7.7) 09/29/22 10:13 Lymph # (Auto) 0.9 10^3/uL (0.8- 4.8) 09/29/22 10:13 [place] # (Auto) 0.4 10^3/uL (0.2- 0.9) 09/29/22 10:13 Eos # (Auto) 0.2 10^3/uL (0.0- 0.8) 09/29/22 10:13 Baso # (Auto) 0.0 10^3/uL (0.0- 0.1) 09/29/22 10:13 Nucleated RBC % (a uto) 0 % 09/29/22 10:13 Nucleated RBCs # 0.0 /100WBC 09/29/22 10:13 Retic Production I ndex 2.03 09/28/22 09:50 Haptoglobin 49.0 mg/L (30-200 ) 09/28/22 09:50 PT 12.10 SECONDS (12 .1-14.9) 09/25/22 10:51 INR 0.87 (0.8-1.2) 09/25/22 10:51 APTT 25.6 SECONDS (23. 9-36.7) 09/25/22 10:51 Sodium 137 mmol/L (136-1 45) 09/29/22 10:13 Potassium 4.1 mmol/L (3.5-5 .1) 09/29/22 10:13 Chloride 103 mmol/L (98-10 7) 09/29/22 10:13 Carbon Dioxide 25 mmol/L (22-29) 09/29/22 10:13 Anion Gap 13.1 (5-19) 09/29/22 10:13 BUN 8 mg/dL (6-20) 09/29/22 10:13 Creatinine 0.7 mg/dL (0.5-0. 9) 09/29/22 10:13 GFR Calculation 93.6 mL/min (90-1 30) 09/29/22 10:13 Glucose 68 mg/dL (65-115) 09/29/22 10:13 Calculated Osmolal ity 281 mOsm/kg (285- 295) L 09/29/22 10:13 Calcium 8.8 mg/dL (8.5-10 .5) 09/29/22 10:13 Total Bilirubin 0.3 mg/dL (0.15-1 .2) 10/14/22 17:30 Direct Bilirubin 0.20 mg/dL (0.00- 0.30) 10/14/22 17:30 AST 25 U/L (0-32) 10/14/22 17:30 ALT 88 U/L (0-33) H 10/14/22 17:30 Alkaline Phosphata se 61 U/L (35-105) 10/14/22 17:30 Ammonia 49 umol/L (11-51) 09/25/22 11:40 Lactate Dehydrogen ase 344 U/L (135-214) H 09/28/22 09:50 Total Protein 6.7 g/dL (6.6-8.7 ) 10/14/22 17:30 Albumin 3.8 g/dL (3.5-5.2 ) 10/14/22 17:30 Globulin 2.9 g/dL (1.3-4.6 ) 10/14/22 17:30 TSH 1.42 uIU/mL (0.27 -4.20) 09/28/22 09:50 HCG, Qual Negative (Negati ve) 09/25/22 10:51 Urine Color Yellow (Yellow) 09/25/22 09:05 Urine Appearance Cloudy (CLEAR) A 09/25/22 09:05 Urine pH 5 (5-7) 09/25/22 09:05 Ur Specific Gravit y 1.025 (1.005-1.0 30) 09/25/22 09:05 Urine Protein Trace (Negative) 09/25/22 09:05 Urine Glucose (UA) Trace (Normal) H 09/25/22 09:05 Urine Ketones 1+ (Negative) H 09/25/22 09:05 Urine Blood 3+ (Negative) H 09/25/22 09:05 Urine Nitrate Negative (Negati ve) 09/25/22 09:05 Urine Bilirubin 2+ (Negative) H 09/25/22 09:05 Urine Urobilinogen 4+ mg/dL (Negativ e) H 09/25/22 09:05 Ur Leukocyte Em ase 2+ (Negative) H 09/25/22 09:05 Urine RBC 0-4 /hpf (0-2) H 09/25/22 09:05 Urine WBC 0-4 /hpf (0-5) H 09/25/22 09:05 Ur Squamous Epith Cells 0-4 /hpf (0-5) H 09/25/22 09:05 Amorphous Sediment 2+ /hpf 09/25/22 09:05 Urine Bacteria 2+ /hpf (NONE) H 09/25/22 09:05 Urine Yeast 1+ /hpf H 09/25/22 09:05 Salicylates < 0.3 mg/dL (3-10 ) L 09/25/22 10:51 Urine Opiates Scre en Negative ng/mL (N egative) 09/25/22 09:05 Acetaminophen < 5.0 ug/mL (10-3 0) L 09/25/22 10:51 Ur Barbiturates Sc reen Negative ng/mL (N egative) 09/25/22 09:05 Ur Phencyclidine S crn Negative ng/mL (N egative) 09/25/22 09:05 Ur Amphetamines Sc reen Negative ng/mL (N egative) 09/25/22 09:05 U Benzodiazepines Scrn Negative ng/mL (N egative) 09/25/22 09:05 Urine Cocaine Scre en Negative ng/mL (N egative) 09/25/22 09:05 U Marijuana (THC) Screen Negative ng/mL (N egative) 09/25/22 09:05 Ethyl Alcohol < 10 mg/dL (0-10) 09/25/22 10:51 Hepatitis A IgM Ab Non-reactive (No nreactive) 09/25/22 Unknown Hep Bs Antigen Non-reactive (No nreactive) 09/25/22 Unknown Hep B Core IgM Ab Non-reactive (No nreactive) 09/25/22 Unknown Hepatitis C Antibo dy Reactive (Nonrea ctive) H 09/25/22 Unknown HCV RNA (PCR) IUs/ ml 7.22 Log IU/mL (N OT DETECTED) H 09/25/22 14:15 HCV RNA (PCR) IU l [id number] [id number] IU/mL (N OT DETECTED) H 09/25/22 14:15 HIV 1&2 Ab & HIV 1 Ag Non-reactive (No n-Reactiv) 09/25/22 10:51 HIV 1&2 Antibody Non-reactive (No n-Reactiv) 09/25/22 10:51 Vitals: Last Vital Signs Temp 98.3 F 10/16/22 06:00 Pulse 126 H 10/16/22 06:00 Resp 18 10/16/22 06:00 BP 117/82 10/16/22 06:00 Pulse Ox 97 10/16/22 06:00 O2 Del Method Room Air 10/16/22 06:00 Discharge Plan Discharge Patient Disposition: Home Condition: Stable Prescriptions: New clonazepam 0.5 mg Tablet 0.5 mg PO BEDTIME 30 Days Qty: 30 1RF olanzapine 10 mg Tablet,Disintegrating 10 mg PO 1900 30 Days Qty: 30 1RF Invega Sustenna 156 mg/mL syringe 156 mg IM Q30D Qty: 1 1RF Rx Instructions: Patient to be given shot IM on 11/12/2022 Discharge Orders: Discharge Order (Routine); Ordered 10/16/22 Ordered By: Herminio Puentes Referrals: [facility] – [place] [facility] [Outside] - 11/01/22 8:30 am (Initial assessment for [facility]) Geremias Olsen MD [Physician] - 05/17/23 10:00 am (Establishing care and hospitial follow up) Discharge Diet: Advance as tolerated Discharge Activity: Resume usual activity Patient Instructions: Depression, Clonazepam (By mouth) (KlonoPIN), Paliperidone (By mouth) (Invega), Depression (GEN), Brief Psychotic Disorder (GEN), Paranoid Personality Disorder (DC), Anxiety (ED), Psychotic Disorder (DC), Opioid Safety Discharge Attestations [facility] Time Spent in Discharge Care*: less than 30 min Specific Discharge Activities: Specific discharge activities: educating patient and documenting/other paperwork Status at Discharge: Cognitive status at discharge: cognitively intact , Behavioral status at discharge: cooperative and can be uncooperative , Coding Level of Care Code Acute Chg FW DC note Diagnoses Acute psychosis F23 Paranoid delusion F22 Hepatitis C B19.20 Head lice B85.0
[2022-10-16 12:52] VITALS: BP 117/82; PULSE 126; RESP 18; TEMP 36.8; O2SAT 97
== END 2022-10-16 14:25 | disposition home or self-care (01) | DRG 885 ==
LOC: ER 09:14 → NP 11:34 → ICU 09-26 07:02
PROVIDERS: Family Medicine; Internal Medicine; Admitting Provider Psychiatry & Neurology Psychiatry; Emergency Provider Family Medicine; Visit Provider Psychiatry & Neurology Psychiatry
DX: F22 Delusional disorders (principal); N39.0 Urinary tract infection, site not specified; F33.1 Major depressive disorder, recurrent, moderate; B85.4 Mixed pediculosis and phthiriasis; K70.10 Alcoholic hepatitis without ascites; F10.20 Alcohol dependence, uncomplicated; K21.9 Gastro-esophageal reflux disease without esophagitis; G25.81 Restless legs syndrome; F12.20 Cannabis dependence, uncomplicated; I10 Essential (primary) hypertension; E78.2 Mixed hyperlipidemia; F41.9 Anxiety disorder, unspecified; J45.909 Unspecified asthma, uncomplicated; F17.210 Nicotine dependence, cigarettes, uncomplicated; F43.12 Post-traumatic stress disorder, chronic; D69.6 Thrombocytopenia, unspecified
CPT/HCPCS: 36415; 74176; 80053; 80074; 80076; 80306; 80307; 80503; 81001; 82140; 83010; 83615; 84443; 84703; 85014; 85025; 85045; 85610; 85730; 87086; 87522; 87806; 96372; 97150; 97165; 99285; J2060; J3486

== ENCOUNTER 2023-05-18 16:34 | Inpatient (IN) | payer MEDICAID, SELFPAY ==
--- NOTE | 2023-05-18 16:39 | W.ED.PSYCHS ---
Documented by User: ROSALBA Ervin 05/18/23 21:47 HPI - Psych General: Chief Complaint: Psychiatric Symptoms Stated Complaint: PSYCH EVAL Time Seen by Provider: 05/18/23 16:38 Source: patient and police Mode of arrival: other (police) Limitations: altered mental status History of Present Illness: Patient is a 38-year-old female with an extensive psych history here after she was brought by police along with an affidavit for mental health evaluation. According to mounted police he has been contacted regarding patient multiple times over the past several weeks. She has been found multiple times walking in the middle of [place]. There have been several instances where she has almost been hit by other vehicles. Police state today they found her intoxicated and appeared to acutely psychotic thus prompting her ED visit. Patient tells me she walks in the middle of the road as she is following cracks in the asphalt stating that she sees angels and demons that tell her to do this. On exam patient's behavior and speech is bizarre and disorganized. MD complaint: altered mental status and other (psychosis) Onset (ago): day(s) History of same: Yes Relieving factors: none Exacerbating factors: alcohol Context: recent alcohol abuse Associated psychiatric symptoms: visual hallucinations Associated symptoms: Reports visual hallucinations; Deny auditory hallucinations, homicidal ideation or suicidal ideation Treatments prior to arrival: none Review of Systems Const: Denies: fever(s) or chills Card: Denies: chest pain, palpitations, lightheadedness or syncope Resp: Denies: dyspnea GI: Denies: abdominal pain, nausea, vomiting or diarrhea Skin/Breast: Denies: rash Neuro: Denies: headache(s) Psych: Reports: anxiety and visual hallucinations; Denies: auditory hallucinations, suicidal ideation or homicidal ideation [facility] ED PFSH: Medical History Hepatitis C Allergic rhinitis Smoking addiction OROSCO (dyspnea on exertion) Dyslipidemia Abnormal EKG Atypical chest pain Declined smoking cessation Abscess of skin of abdomen Head lice Right knee pain Bilateral knee pain Right shoulder pain Alcohol use disorder, severe, dependence Major depressive disorder, recurrent, moderate Allergic atopic asthma without complication Anxiety Asthma Bee sting allergy Mixed hyperlipidemia Essential (primary) hypertension Vitamin D insufficiency Surgical History History of cholecystectomy History of tubal ligation Family History Family/Other CAD (coronary artery disease) Cancer Lung disease Father CAD (coronary artery disease) Lung disease Grandmother Cancer Mother Chronic kidney disease (CKD) Diabetes Stroke Grandfather Diabetes Daughter Lung disease Other Hypertension Denies family history of Clotting disorder Dementia Suicide Anesthesia complication Bleeding disorder Social History Smoking and tobacco/nicotine status: current every day tobacco/nicotine user cigarettes Packs smoked per day: 0.5 Years cigarettes smoked: 17 Quit status (tobacco/nicotine): has tried quititng Number of times tried to quit tobacco: 2 Second hand smoke exposure: Yes Alcohol intake: current Alcohol intake frequency: few times a month Substance/Drug Use: former Date of last use: IV drugs Caregiver/support person: No Lives independently: Yes Household members: spouse Marital status: Number of children: 4 service: No Current occupational status: unemployed Do you think of yourself as: Straight/Heterosexual Current gender identity: Female Physical Exam Const: COMMON NORMALS: no acute distress, patient oriented x3, alert and well nourished GENERAL APPEARANCE: cooperative Resp: COMMON NORMALS: normal respiratory effort and clear to auscultation bilaterally AUSCULTATION: clear to auscultation bilaterally Cardio: COMMON NORMALS: regular rate and regular rhythm RATE: regular rate RHYTHM: regular rhythm Neuro: COMMON NORMALS: patient oriented x3 SENSORIUM/ORIENTATION: Yes alert Psych: COMMON NORMALS: cooperative, speech normal, denies homicidal ideation and denies suicidal ideation APPEARANCE: Yes unkempt and Yes disheveled ATTITUDE: Yes bizarre ACTIVITY/MOTOR BEHAVIOR: No psychomotor agitation SPEECH: Yes normal speech THOUGHT PROCESS: disorganized THOUGHT CONTENT: Yes Hallucination(s) present ATTENTION/CONCENTRATION: Yes attention grossly intact and Yes concentration grossly intact INSIGHT: Limited insight present (Psych) JUDGEMENT: Limited judgement present (Psych) Course ED course: No NPU beds available. Will look for transfer placement once file complete. Patient placed on 96 hour hold. Reevaluation(s): Reevaluation #1: [employer] now telling me we are going to have a NPU bed. I have spoken to Dr. Carrera and he will accept. Time: 21:46 Consultations: Consultation #1: Dr. Solares-accepts to NPU Vital Signs: Vital signs: Vital Signs Temperature 98.4 F 05/19/23 14:00 Pulse Rate 71 05/19/23 19:45 Respiratory Rate 18 05/19/23 19:45 Blood Pressure 98/63 05/19/23 19:45 Pulse Oximetry 99 05/19/23 19:45 Oxygen Delivery Me thod Room Air 05/19/23 19:45 MDM - Psych Medical Decision Making Patient will be admitted to NPU to Dr. Carrera for treatment/evaluation of her acute psychosis. Lab Data 05/18/23 16:50 05/18/23 16:50 Laboratory Results WBC 6.84 10^3/uL (3.29-11.43) 05/18/23 16:50 RBC 5.03 10^6/uL (3.85-5.65) 05/18/23 16:50 Hgb 16.30 g/dL (11.27-16.99) 05/18/23 16:50 Hct 48.3 % (36-47) H 05/18/23 16:50 MCV 96.0 fl (85-98) 05/18/23 16:50 MCH 32.4 pg (27-33) 05/18/23 16:50 MCHC 33.7 g/dL (30-55) 05/18/23 16:50 RDW 12.6 % (12.1-15.1) 05/18/23 16:50 Plt Count 202 10^3/cmm (157-399) 05/18/23 16:50 MPV 8.6 fL (7.4-10.4) 05/18/23 16:50 Neut % (Auto) 43.9 % 05/18/23 16:50 Lymph % (Auto) 46.8 % 05/18/23 16:50 Woodruff % (Auto) 5.3 % 05/18/23 16:50 Eos % (Auto) 1.9 % 05/18/23 16:50 Baso % (Auto) 0.6 % 05/18/23 16:50 Neut # (Auto) 3.01 10^3/uL (1.8-7.7) 05/18/23 16:50 Lymph # (Auto) 3.2 10^3/uL (0.8-4.8) 05/18/23 16:50 Woodruff # (Auto) 0.4 10^3/uL (0.2-0.9) 05/18/23 16:50 Eos # (Auto) 0.1 10^3/uL (0.0-0.8) 05/18/23 16:50 Baso # (Auto) 0.0 10^3/uL (0.0-0.1) 05/18/23 16:50 Nucleated RBC % (auto) 0 % 05/18/23 16:50 Nucleated RBCs # 0.0 /100WBC 05/18/23 16:50 Sodium 142 mmol/L (136-145) 05/18/23 16:50 Potassium 3.5 mmol/L (3.5-5.1) 05/18/23 16:50 Chloride 104 mmol/L (98-107) 05/18/23 16:50 Carbon Dioxide 28 mmol/L (22-29) 05/18/23 16:50 Anion Gap 13.5 (5-19) 05/18/23 16:50 BUN 6 mg/dL (6-20) 05/18/23 16:50 Creatinine 0.8 mg/dL (0.5-0.9) 05/18/23 16:50 GFR Calculation 79.9 mL/min (90-130) L 05/18/23 16:50 Glucose 95 mg/dL (65-115) 05/18/23 16:50 Calculated Osmolality 291 mOsm/kg (285-295) 05/18/23 16:50 Calcium 9.2 mg/dL (8.5-10.5) 05/18/23 16:50 Total Bilirubin 0.5 mg/dL (0.15-1.2) 05/18/23 16:50 AST 150 U/L (0-32) H 05/18/23 16:50 ALT 89 U/L (0-33) H 05/18/23 16:50 Alkaline Phosphatase 86 U/L (35-105) 05/18/23 16:50 Total Protein 7.9 g/dL (6.6-8.7) 05/18/23 16:50 Albumin 4.0 g/dL (3.5-5.2) 05/18/23 16:50 Globulin 3.9 g/dL (1.3-4.6) 05/18/23 16:50 TSH 1.66 uIU/mL (0.27-4.20) 05/18/23 16:50 HCG, Qual Negative (Negative) 05/18/23 16:50 Salicylates < 0.3 mg/dL (3-10) L 05/18/23 16:50 Urine Opiates Screen Negative ng/mL (Negative) 05/18/23 16:54 Acetaminophen < 5.0 ug/mL (10-30) L 05/18/23 16:50 Ur Barbiturates Screen Negative ng/mL (Negative) 05/18/23 16:54 Ur Phencyclidine Scrn Negative ng/mL (Negative) 05/18/23 16:54 Ur Amphetamines Screen Negative ng/mL (Negative) 05/18/23 16:54 U Benzodiazepines Scrn Negative ng/mL (Negative) 05/18/23 16:54 Urine Cocaine Screen Negative ng/mL (Negative) 05/18/23 16:54 U Marijuana (THC) Screen Negative ng/mL (Negative) 05/18/23 16:54 Ethyl Alcohol 237 mg/dL (0-10) H 05/18/23 16:50 Influenza Type A Ag negative (Negative) 05/18/23 20:05 Influenza Type B Ag negative (Negative) 05/18/23 20:05 SARS-CoV-2 Ag (Rapid) negative (Negative) 05/18/23 17:30 No radiology studies performed this visit Discharge Plan Discharge Patient Disposition: Admitted As Inpatient Admit Provider: Domenic Carrera Clinical Impression: Acute psychosis Condition: Stable Coding Level of Care Code ED Maintenance Groundman for Chg Fwd Documented by User: Sabas Rebollar DO 05/19/23 21:04 HPI - Psych General: Chief Complaint: Psychiatric Symptoms Stated Complaint: PSYCH EVAL Time Seen by Provider: 05/18/23 16:38 PFSH ED PFSH: Medical History Hepatitis C Allergic rhinitis Smoking addiction OROSCO (dyspnea on exertion) Dyslipidemia Abnormal EKG Atypical chest pain Declined smoking cessation Abscess of skin of abdomen Head lice Right knee pain Bilateral knee pain Right shoulder pain Alcohol use disorder, severe, dependence Major depressive disorder, recurrent, moderate Allergic atopic asthma without complication Anxiety Asthma Bee sting allergy Mixed hyperlipidemia Essential (primary) hypertension Vitamin D insufficiency Surgical History History of cholecystectomy History of tubal ligation Family History Family/Other CAD (coronary artery disease) Cancer Lung disease Father CAD (coronary artery disease) Lung disease Grandmother Cancer Mother Chronic kidney disease (CKD) Diabetes Stroke Grandfather Diabetes Daughter Lung disease Other Hypertension Denies family history of Clotting disorder Dementia Suicide Anesthesia complication Bleeding disorder Social History Smoking and tobacco/nicotine status: current every day tobacco/nicotine user cigarettes Packs smoked per day: 0.5 Years cigarettes smoked: 17 Quit status (tobacco/nicotine): has tried quititng Number of times tried to quit tobacco: 2 Second hand smoke exposure: Yes Alcohol intake: current Alcohol intake frequency: few times a month Substance/Drug Use: former Date of last use: IV drugs Caregiver/support person: No Lives independently: Yes Household members: spouse Marital status: Number of children: 4 service: No Current occupational status: unemployed Do you think of yourself as: Straight/Heterosexual Current gender identity: Female Course Vital Signs: Vital signs: Vital Signs Temperature 98.4 F 05/19/23 14:00 Pulse Rate 71 05/19/23 19:45 Respiratory Rate 18 05/19/23 19:45 Blood Pressure 98/63 05/19/23 19:45 Pulse Oximetry 99 05/19/23 19:45 Oxygen Delivery Me thod Room Air 05/19/23 19:45 MDM - Psych Medical Decision Making Patient will be admitted to NPU to Dr. Carrera for treatment/evaluation of her acute psychosis. This patient was originally seen by [place]?ROB Renteria.? I agree with her history, evaluation, and treatment. Lab Data 05/18/23 16:50 05/18/23 16:50 Laboratory Results WBC 6.84 10^3/uL (3.29-11.43) 05/18/23 16:50 RBC 5.03 10^6/uL (3.85-5.65) 05/18/23 16:50 Hgb 16.30 g/dL (11.27-16.99) 05/18/23 16:50 Hct 48.3 % (36-47) H 05/18/23 16:50 MCV 96.0 fl (85-98) 05/18/23 16:50 MCH 32.4 pg (27-33) 05/18/23 16:50 MCHC 33.7 g/dL (30-55) 05/18/23 16:50 RDW 12.6 % (12.1-15.1) 05/18/23 16:50 Plt Count 202 10^3/cmm (157-399) 05/18/23 16:50 MPV 8.6 fL (7.4-10.4) 05/18/23 16:50 Neut % (Auto) 43.9 % 05/18/23 16:50 Lymph % (Auto) 46.8 % 05/18/23 16:50 Woodruff % (Auto) 5.3 % 05/18/23 16:50 Eos % (Auto) 1.9 % 05/18/23 16:50 Baso % (Auto) 0.6 % 05/18/23 16:50 Neut # (Auto) 3.01 10^3/uL (1.8-7.7) 05/18/23 16:50 Lymph # (Auto) 3.2 10^3/uL (0.8-4.8) 05/18/23 16:50 Woodruff # (Auto) 0.4 10^3/uL (0.2-0.9) 05/18/23 16:50 Eos # (Auto) 0.1 10^3/uL (0.0-0.8) 05/18/23 16:50 Baso # (Auto) 0.0 10^3/uL (0.0-0.1) 05/18/23 16:50 Nucleated RBC % (auto) 0 % 05/18/23 16:50 Nucleated RBCs # 0.0 /100WBC 05/18/23 16:50 Sodium 142 mmol/L (136-145) 05/18/23 16:50 Potassium 3.5 mmol/L (3.5-5.1) 05/18/23 16:50 Chloride 104 mmol/L (98-107) 05/18/23 16:50 Carbon Dioxide 28 mmol/L (22-29) 05/18/23 16:50 Anion Gap 13.5 (5-19) 05/18/23 16:50 BUN 6 mg/dL (6-20) 05/18/23 16:50 Creatinine 0.8 mg/dL (0.5-0.9) 05/18/23 16:50 GFR Calculation 79.9 mL/min (90-130) L 05/18/23 16:50 Glucose 95 mg/dL (65-115) 05/18/23 16:50 Calculated Osmolality 291 mOsm/kg (285-295) 05/18/23 16:50 Calcium 9.2 mg/dL (8.5-10.5) 05/18/23 16:50 Total Bilirubin 0.5 mg/dL (0.15-1.2) 05/18/23 16:50 AST 150 U/L (0-32) H 05/18/23 16:50 ALT 89 U/L (0-33) H 05/18/23 16:50 Alkaline Phosphatase 86 U/L (35-105) 05/18/23 16:50 Total Protein 7.9 g/dL (6.6-8.7) 05/18/23 16:50 Albumin 4.0 g/dL (3.5-5.2) 05/18/23 16:50 Globulin 3.9 g/dL (1.3-4.6) 05/18/23 16:50 TSH 1.66 uIU/mL (0.27-4.20) 05/18/23 16:50 HCG, Qual Negative (Negative) 05/18/23 16:50 Salicylates < 0.3 mg/dL (3-10) L 05/18/23 16:50 Urine Opiates Screen Negative ng/mL (Negative) 05/18/23 16:54 Acetaminophen < 5.0 ug/mL (10-30) L 05/18/23 16:50 Ur Barbiturates Screen Negative ng/mL (Negative) 05/18/23 16:54 Ur Phencyclidine Scrn Negative ng/mL (Negative) 05/18/23 16:54 Ur Amphetamines Screen Negative ng/mL (Negative) 05/18/23 16:54 U Benzodiazepines Scrn Negative ng/mL (Negative) 05/18/23 16:54 Urine Cocaine Screen Negative ng/mL (Negative) 05/18/23 16:54 U Marijuana (THC) Screen Negative ng/mL (Negative) 05/18/23 16:54 Ethyl Alcohol 237 mg/dL (0-10) H 05/18/23 16:50 Influenza Type A Ag negative (Negative) 05/18/23 20:05 Influenza Type B Ag negative (Negative) 05/18/23 20:05 SARS-CoV-2 Ag (Rapid) negative (Negative) 05/18/23 17:30 Discharge Plan Discharge Patient Disposition: Admitted As Inpatient Admit Provider: Domenic Carrera Clinical Impression: Acute psychosis Condition: Stable Coding Level of Care Code ED Maintenance Groundman for Ricardo Reyes
[2023-05-18 16:44] VITALS: BP 136/101; PULSE 98; RESP 18; TEMP 36.6; O2SAT 96; BMI 25.0
[2023-05-18 17:01] LABS: Basophils % 0.6 %; Eosinophils # 0.1 10^3/uL (0.0-0.8); Eosinophils % 1.9 %; Hematocrit 48.3 % (36-47); Lymphocytes # 3.2 10^3/uL (0.8-4.8); Lymphocytes % 46.8 %; Mean Corpuscular HGB Conc 33.7 g/dL (30-55); Mean Corpuscular Hemoglobin 32.4 pg (27-33); Mean Platelet Volume 8.6 fL (7.4-10.4); Monocytes # 0.4 10^3/uL (0.2-0.9); Monocytes % 5.3 %; Neutrophils # 3.01 10^3/uL (1.8-7.7); Neutrophils % 43.9 %; Nucleated Red Blood Cells % 0 %; Platelet Count 202 10^3/cmm (157-399); Red Blood Count 5.03 10^6/uL (3.85-5.65); Red Cell Distribution Width 12.6 % (12.1-15.1); White Blood Count 6.84 10^3/uL (3.29-11.43)
[2023-05-18 17:12] LABS: Amphetamines Screen Urine Negative (Negative); Barbiturates Screen Urine Negative (Negative); Benzodiazepines Screen Urine Negative (Negative); Cocaine Screen Urine Negative (Negative); Opiate Screen Urine Negative (Negative); PCP Screen Urine Negative (Negative); THC Screen Urine Negative (Negative)
[2023-05-18 17:18] LABS: Alanine Aminotransferase 89 U/L (0-33); Alcohol Level 237 mg/dL (0-10); Alkaline Phosphatase 86 U/L (35-105); Anion Gap 13.5 (5-19); Aspartate Amino Transferase 150 U/L (0-32); Blood Urea Nitrogen 6 mg/dL (6-20); Calcium 9.2 mg/dL (8.5-10.5); Carbon Dioxide 28 mmol/L (22-29); Chloride 104 mmol/L (98-107); Globulin 3.9 g/dL (1.3-4.6); Glomerular Filtration Rate 79.9 mL/min (90-130); Glucose 95 mg/dL (65-115); Osmolality Calculated 291 mOsm/kg (285-295); Potassium 3.5 mmol/L (3.5-5.1); Sodium 142 mmol/L (136-145); Total Bilirubin 0.5 mg/dL (0.15-1.2); Total Protein 7.9 g/dL (6.6-8.7)
[2023-05-18 17:26] LABS: Acetaminophen < 5.0 ug/mL (10-30); Salicylate < 0.3 mg/dL (3-10)
[2023-05-18] MEDS: OLANZapine 10 mg VIAL IM (17:36)
[2023-05-18] MEDS: water for injection-sterile 10 ML 125 ML (17:37)
[2023-05-18 17:40] LABS: HCG, Serum Qual Negative (Negative)
[2023-05-18 17:53] LABS: Thyroid Stimulating Hormone 1.66 uIU/mL (0.27-4.20)
--- NOTE | 2023-05-18 18:17 | ECG_ITS ---
[facility] Test Date: 2023-05-18 Pat Name: Yessica Vasquez Department: Room: Gender: Female License Clerk: : [id number] Requested By: Flaquita Kilgore Order Number: [id number] Adrienne MD: Mark Macario M.D. Measurements Intervals [place] Rate: 90 P: 57 NC: 175 QRS: 62 QRSD: 100 T: 40 QT: 370 QTc: 454 Interpretive Statements SINUS RHYTHM Compared to ECG 06/23/2021 11:51:46 Sinus bradycardia no longer present Sinus arrhythmia no longer present Electronically Signed On 05-19-2023 8:39:39 MANAGER SWITCH by Mark Macario M.D. [id number]
[2023-05-18 18:21] LABS: SARS Covid-2 Antigen negative (Negative)
[2023-05-18 22:17] VITALS: BP 108/70; PULSE 90; RESP 16; O2SAT 96
[2023-05-18 22:32] VITALS: BP 116/86; PULSE 107; RESP 20; TEMP 37; O2SAT 96
[2023-05-18 22:35] LABS: Influenza A by IFA negative (Negative); Influenza B by IFA negative (Negative)
[2023-05-19 06:00] VITALS: BP 136/84; PULSE 92; RESP 15; O2SAT 96
[2023-05-19] MEDS: thiamine 100 mg Tablet PO (08:23)
[2023-05-19] MEDS: folic acid 1 mg Tablet PO (08:23)
--- NOTE | 2023-05-19 08:26 | PC.NURSE ---
refused scheduled Multivitamin, saying it's too big I can't swallow it
[2023-05-19 10:56] LABS: Urine Color Dark Yellow (Yellow)
[2023-05-19 10:57] LABS: Add Urine Microscopic? YES; Bacteria Urine 1+ /hpf; Bilirubin Urine 1+ (Negative); Blood Urine Neg (Negative); Calcium Oxalate Crystals Urine 0-4 /hpf; Glucose Urine UA Norm (Normal); Ketones Urine Negative (Negative); Leukocyte Esterase Urine 1+ (Negative); Mucus Urine 2+ /hpf; Nitrate Urine Negative (Negative); Protein Urine Neg (Negative); RBC Urine 0-4 /hpf (0-2); Squamous Epithelial Cell Urine 25-40 /hpf (0-5); Urine Appearance Cloudy (CLEAR); Urobilinogen Urine 8 mg/dL (Negative); WBC Urine 25-40 /hpf (0-5); pH Urine 5 (5-7)
[2023-05-19] MEDS: flu vacc pf 2023-24 (6 mos+) 60 MCG IM (11:07)
--- NOTE | 2023-05-19 11:09 | PC.NURSE ---
FLU VACCINE 1 DOSE GIVEN (0.5 ML) IM IN LEFT DELTOID. TOLERATED INJECTION WELL. WILL CONT TO MONITOR INJECTION SITE FOR ANY REDNESS, SWELLING, OR IRRITATION. LOT [id number] EXP 12/08/23
--- NOTE | 2023-05-19 12:52 | P.NPUHP_ITS ---
Providers/Chief Complaint 2 Admitting Physician: Domenic Carrera MD Chief Complaint: PSYCH EVAL HPI NPU History of Present Illness Yessica Vasquez is a 38 year old female who presented to the emergency department with the following report: Chief Complaint: Psychiatric Symptoms Stated Complaint: PSYCH EVAL Time Seen by Provider: 05/18/23 16:38 Source: patient and police Mode of arrival: other (police) Limitations: altered mental status History of Present Illness: Patient is a 38-year-old female with an extensive psych history here after she was brought by police along with an affidavit for mental health evaluation. According to police detention attendant he has been contacted regarding patient multiple times over the past several weeks. She has been found multiple times walking in the middle of the highways. There have been several instances where she has almost been hit by other vehicles. Police state today they found her intoxicated and appeared to acutely psychotic thus prompting her ED visit. Patient tells me she walks in the middle of the road as she is following cracks in the asphalt stating that she sees angels and sarkis that tell her to do this. On exam patient's behavior and speech is bizarre and disorganized. complaint: altered mental status and other (psychosis) Onset (ago): day(s) History of same: Yes Relieving factors: none Exacerbating factors: alcohol Context: recent alcohol abuse Associated psychiatric symptoms: visual hallucinations Associated symptoms: Reports visual hallucinations; Deny auditory hallucinations, homicidal ideation or suicidal ideation Treatments prior to arrival: none She was admitted to the neuropsychiatric unit for definitive treatment of those issues. Patient presented as she sometimes does as a limited historian basically staring blankly after questions were asked. She had no explanation for why she Being found by the police walking aimlessly on the highway. Initially she said she just came into the hospital then she was able to identify that she was brought in by the police but could not explain why she was brought in by the police. We discussed that they had significant concerns about her odd behavior. Attempted to ask about how addiction might have impacted her situation and she reports that she does not think that addiction has played a role in all. We discussed the fact that addiction has played a role in the past and try to get her to explain how things have been different since she was here in October. She can give really no responses. She reports that she is adherent to her medication and we discussed concerns that it would be hard to be intoxicated and/or wandering and also on point with medication adherence. We reviewed her last discharge summary and an excerpt is included below for context and history given her limitations and her reporting that there have been no substantive changes in the last 7 months. Per her 10/16/2022 [facility] inpatient psychiatric discharge summary: Discharge Diagnosis (1) Acute psychosis: Status: Acute (2) Paranoid delusion: Status: Acute (3) Hepatitis C: Status: Acute (4) Head lice: Status: Acute Reason for Visit Reason for Visit: 96 Brief History: History of Present Illness Yessica Vasquez is a 37 year old female with a previous history of psychosis admitted here in June 2021 who presented to the emergency department by law enforcement. She had apparently been convinced that the law enforcement was trying to put something in her neck and she had made an attempt to slice her throat. She was placed here on a 96-hour hold and was initially treated for head lice in the intensive care unit with additional medical problems including elevated liver function tests. She was transferred to the neuropsychiatric unit today for further evaluation and treatment. She had been unable to describe why she was in the hospital. She had appeared quite confused and stated that she was here for the truth. She had reported that the police had brought her here. She had appeared at times distracted and the interview was paused briefly as the patient had appeared to say something to someone that was not in the room. She had refused to take any medications and was unwilling to discuss any of the reasons that she may have been placed here. She did report that she was in a place where she could seen and was reporting that she felt that there was a special reason for her to be here at this time. She denied any thoughts of hurting herself or others. She was informed that she was here involuntarily and did not appear to be willing to discuss her problems any further. She had refused all medications involved in her potential treatment although she had reported having active symptoms suggestive of a urinary tract infection. She had refused to have any further testing done as she had reported that there may be poison in the needle. Past psychiatric history: Unknown other than reports that the patient had been hospitalized here in June 2021. Drug and alcohol history: Reported history of alcohol abuse and intravenous drug use. Legal history: Unknown history: Unknown Medications: None Surgeries: Refused to answer Allergies: Morphine and bee venom protein Medical history: Hepatitis C active, head lice active, urinary tract infection Social history: Patient reports that she was born in [place] and reports having graduated from high school while residing with her mother. She states that she had previously lived in [place] and had worked. She reports having 4 children. She did not elaborate any further other than stating that she lives with a good friend name Mark in [place]. Exerpt provided here from Discharge Summary from June [facility] at [facility] is believed that the air however you Discharge Diagnosis (1) Psychosis: Status: Acute Qualifiers: Psychosis type: other Qualified Code(s): F28 - Other psychotic disorder not due to a substance or known physiological condition (2) History of alcohol abuse: Status: Chronic (3) History of intravenous drug abuse: Status: Chronic (4) RLS (restless legs syndrome): Status: Chronic (5) GERD (gastroesophageal reflux disease): Status: Chronic Qualifiers: Esophagitis presence: esophagitis presence not specified Qualified Code(s): K21.9 - Gastro-esophageal reflux disease without esophagitis (6) Cannabis use disorder, moderate, dependence: Status: Chronic (7) Post-traumatic stress disorder, chronic: (8) Anxiety: Status: Chronic (9) Essential (primary) hypertension: Status: Chronic (10) Mixed hyperlipidemia: Status court order 96 Brief History: History of Present Illness Yessica Vasquez is a 36 year old female who was admitted from our emergency department yesterday with the following report: General: Chief Complaint: Psychiatric Symptoms Stated Complaint: court order 96 Time Seen by Provider: 06/22/21 19:27 Source: patient and police Mode of arrival: other (police custody) Limitations: no limitations History of Present Illness: HPI Narrative: Patient is a 36-year-old female who presents to ED today in police custody after they served her 96-hour hold paperwork. Patient is essentially denying all accusations and states she does not know why she is here. Patient's hold paperwork is very lengthy and some of it is illegible. It seems to consistent of several random incidents-I will try and describe here: She constantly calls ambulances but then when she arrives to the hospital immediately leaves. She apparently was missing for 2 days and then found standing in a dollar store opening and closing a freezer door. Her 13-year-old son went to an all-night skate libertarian but states after an hour she grabbed a pellet/BB gun and went to go try to pick him up. Hold paperwork states she has not bathed in over a month. She apparently placed her son in school and then immediately after one day decided she was moving and took him back out of school. She has disappeared on several occasions for days. She apparently has gotten knives and threatened people with them-even her 13-year-old son. She has threatened to jump out of vehicles. She has slept with knives under her pillow. MD complaint: other (96 hour hold) Associated symptoms: Deny auditory hallucinations, visual hallucinations, depression, homicidal ideation or suicidal ideation Treatments prior to arrival: placed on mental health hold. She was admitted to the neuropsychiatry unit for treatment of these issues.She says that everything in the affidavit from her aunt is a lie. She says that her aunt is trying to get her children from her. She says that she did not go to a [employer] rank with a pellet gun. She says that she does not have a car. She does not remember anything about her son going to a [employer] rink. She was told that her thinking did not appear to be clear last night in the emergency room. She did not want them to draw her blood because she said that there was poison on the needle. She said that she has a phobia of needles ever since her many years ago gave her an injection of something and she woke up with numbness and other problems. I asked her if she thought that it was logical to think that the hospital would be purposely putting poison on the needle to draw her blood and she did not answer. I tried again and she still would not answer whether that was logical or not. He denies thinking that anyone else was out to get her other than her aunt. She denies any difficulty recently with sleep or appetite. She denies hearing any voices or seeing anything that is not there. She said that she was depressed and having difficulties when she saw Dr. Rader last year. She said that the medications that Dr. Rader gave her did not help last year. She says that she has wondered she just visualizes something she can fall asleep without difficulties. She denies having nightmares. She does not feel that she has been depressed lately. She has benzodiazepines in her urine at her previous admission and again last night in the emergency room. She denies using any benzodiazepines. She did ask for benzodiazepines during the last admission but was advised why that was a bad idea. After I told her that she had benzodiazepine she said ?well maybe give me a couple of Valium. She denies using alcohol, methamphetamine, marijuana or any drugs. She does not want to take any drugs. I asked her about the prazosin that her primary care provider gave her. She did not know what that was for. Hospital Course During the hospitalization, patient had routine laboratory studies which were within normal limits except for few outliers. Additionally there was a general medical evaluation which was also within normal limits and revealed no new acute processes. At the time of discharge, lethality was denied and psychosis was resolving. Mood and anxiety were well managed. Patient endorsed a plan to avoid all drugs of abuse and follow-up with the aftercare recommendations of the treatment team. The patient had initially required substantial interventions by the medical team to help manage her lungs infestation. She had been somewhat noncooperative and refusing to take medications but was placed on a 21-day hold and was started on Invega and later transition to the intramuscular Invega sustain. She had received both doses of Invega sustain at 234 mg and 1 week later 156 mg with notable improvement and a substantial reduction in her psychotic symptoms. She had remained somewhat guarded regarding use of oral medications but was agreeable to continuing with the medications as prescribed prior to discharge. She was informed that she would require another intramuscular injection of paliperidone around November 12, 2022. Patient was evaluated and deemed to be absent credible lethality, and had achieved the maximum benefit from an inpatient hospitalization, so was discharged. Meds NPU Home Medications Medication Instructions Recorded Confirmed Last Taken Type No Known Home Medications 05/18/23 05/18/23 Unknown History Allergies Allergy/AdvReac Type Severity Reaction Status Date / Time bee venom protein (honey bee) Allergy Intermediate racing Verified 05/18/23 22:26 heart, throwing up morphine AdvReac Intermediate N & V Verified 05/18/23 22:26 PFSH NPU 2 PFSH: Medical History Hepatitis C Allergic rhinitis Smoking addiction OROSCO (dyspnea on exertion) Dyslipidemia Abnormal EKG Atypical chest pain Declined smoking cessation Abscess of skin of abdomen Head lice Right knee pain Bilateral knee pain Right shoulder pain Alcohol use disorder, severe, dependence Major depressive disorder, recurrent, moderate Allergic atopic asthma without complication Anxiety Asthma Bee sting allergy Mixed hyperlipidemia Essential (primary) hypertension Vitamin D insufficiency Surgical History History of cholecystectomy History of tubal ligation Family History Family/Other CAD (coronary artery disease) Cancer Lung disease Father CAD (coronary artery disease) Lung disease Grandmother Cancer Mother Chronic kidney disease (CKD) Diabetes Stroke Grandfather Diabetes Daughter Lung disease Other Hypertension Denies family history of Clotting disorder Dementia Suicide Anesthesia complication Bleeding disorder Social History Smoking and tobacco/nicotine status: current every day tobacco/nicotine user cigarettes Packs smoked per day: 0.5 Years cigarettes smoked: 17 Quit status (tobacco/nicotine): has tried quititng Number of times tried to quit tobacco: 2 Second hand smoke exposure: Yes Alcohol intake: current Alcohol intake frequency: few times a month Substance/Drug Use: former Date of last use: IV drugs Caregiver/support person: No Lives independently: Yes Household members: spouse Marital status: Number of children: 4 service: No Current occupational status: unemployed Do you think of yourself as: Straight/Heterosexual Current gender identity: Female Mental Status Exam 2 MSE Comments: This is a well-nourished well-developed white female in hospital scrubs looking older than her stated age with limited hygiene and eye contact. No abnormal movements except for psychomotor retardation. Mostly uncooperative with exam in mild distress. Speech was limited and mostly decreased rate and volume. Mood not described, affect was irritable. Thought process linear. Thought content: Patient did not report suicidal or homicidal ideation, there were no delusions reported but paranoia and possible persecutory and hyperreligious delusions noted, she did not report auditory or visual hallucinations but did appear to be attending to internal stimuli. Attention and concentration were limited and memory was unreliable but none were formally tested. He is alert and oriented to person and place. Insight, judgment and impulse control are impaired. Vitals/I&O/Wt Last Vital Signs Temp 98.6 F 05/18/23 22:32 Pulse 92 05/19/23 06:00 Resp 15 05/19/23 06:00 BP 136/84 05/19/23 06:00 Pulse Ox 96 05/19/23 06:00 O2 Del Method Room Air 05/19/23 06:00 05/18/23 05/19/23 05/19/23 22:59 06:59 14:59 Intake Total Balance Weight last 48 hrs Weight 88.507 kg Weight 72.575 kg Data NPU 05/18/23 16:50 05/18/23 16:50 A&P Assessment and plan (1) Acute psychosis: (2) Paranoid delusion: (3) Hepatitis C: (4) Acute psychosis: (5) Post-traumatic stress disorder, chronic: Plan This is a 37-year-old white female with a history of psychotic disorder not otherwise specified currently admitted to the neuropsychiatric unit with psychosis. History of addiction and BAL of 237. 1.? ?Engage? patient in individual ,milieu, and group therapy ?2. ? We will attempt to gather collateral information from previous providers ?3. ? TO-15 minute checks on the unit. ?4.? Recommend sober living treatment at the highest level of care to which the patient is willing to commit. Involuntary Hold Information 2 96 Hour Hold: 96 Hour Involuntary Admission: Yes 96 Hour Hold Ending Date: 05/24/23 96 Hour Hold Ending Time: 00:01 Attestations NPU 2 Medical Necessity Statement*: Inpatient hospitalization is medically necessary and the clinically appropriate intervention at this time. We will monitor/initiate medications and make changes as indicated. She will be in the hospital for over 2 midnights . Likely length of stay of 7 to 10 days. Coding Level of Care Code Acute Code for Chg Fwd Diagnoses Acute psychosis F23 Paranoid delusion F22 Hepatitis C B19.20 Post-traumatic stress disorder, chronic F43.12
[2023-05-19 14:00] VITALS: BP 124/85; PULSE 97; RESP 18; TEMP 36.9; O2SAT 95
[2023-05-19] MEDS: acetaminophen 325 mg Tablet 650 MG PO (14:14)
[2023-05-19 19:45] VITALS: BP 98/63; PULSE 71; RESP 18; O2SAT 99
[2023-05-20 06:00] VITALS: BP 151/102; PULSE 62; RESP 16; O2SAT 95
--- NOTE | 2023-05-20 07:38 | P.NPUPN_ITS ---
Subjective NPU 2 Subjective: Patient presented today reporting that she is doing fine. She was not very talkative and continues to have significant ambivalence about her drug use and alcohol addiction continuing to report that she only did a little bit of meth. We discussed having possible drug and alcohol treatments and considering [facility] for her alcohol cravings. Mental Status Exam 2 MSE Comments: This is a well-nourished well-developed white female in hospital scrubs looking older than her stated age with limited hygiene and eye contact. No abnormal movements except for psychomotor retardation. Mostly uncooperative with exam in mild distress. Speech was limited and mostly decreased rate and volume. Mood not described, affect was irritable. Thought process linear. Thought content: Patient did not report suicidal or homicidal ideation, there were no delusions reported but paranoia and possible persecutory and hyperreligious delusions noted, she did not report auditory or visual hallucinations but did appear to be attending to internal stimuli. Attention and concentration were limited and memory was unreliable but none were formally tested. He is alert and oriented to person and place. Insight, judgment and impulse control are impaired. Vitals/I&O/Wt Last Vital Signs Temp 98.4 F 05/19/23 14:00 Pulse 62 05/20/23 06:00 Resp 16 05/20/23 06:00 BP 151/102 05/20/23 06:00 Pulse Ox 95 05/20/23 06:00 O2 Del Method Room Air 05/19/23 19:45 Weight last 48 hrs Weight 88.507 kg Weight 72.575 kg Data NPU 05/18/23 16:50 05/18/23 16:50 A&P Assessment and plan (1) Acute psychosis: (2) Paranoid delusion: (3) Hepatitis C: (4) Acute psychosis: (5) Post-traumatic stress disorder, chronic: Plan This is a 37-year-old white female with a history of psychotic disorder not otherwise specified currently admitted to the neuropsychiatric unit with psychosis. History of addiction and BAL of 237. 1.? ?Engage? patient in individual ,milieu, and group therapy ?2. ? We will attempt to gather collateral information from previous providers ?3. ? TO-15 minute checks on the unit. ?4.? Recommend sober living treatment at the highest level of care to which the patient is willing to commit. Involuntary Hold Information 2 96 Hour Hold: 96 Hour Involuntary Admission: Yes 96 Hour Hold Ending Date: 05/24/23 96 Hour Hold Ending Time: 00:01 Attestations NPU 2 Medical Necessity Statement*: Inpatient hospitalization is medically necessary and the clinically appropriate intervention at this time. We will monitor/initiate medications and make changes as indicated. Likely length of stay of 6-9 days. Coding Level of Care Code Acute Code for Chg Fwd Diagnoses Acute psychosis F23 Paranoid delusion F22 Hepatitis C B19.20 Post-traumatic stress disorder, chronic F43.12
--- NOTE | 2023-05-20 08:20 | PC.NURSE ---
refused scheduled Thiamine, Folic acid, and Multivitamin
[2023-05-20] MEDS: hyDROXYzine 25 mg Capsule 50 MG PO (13:19)
--- NOTE | 2023-05-20 13:23 | PC.NURSE ---
PRN VISTARIL 50 MG GIVEN PO PER PT C/O STATED ANXIETY
[2023-05-20 14:00] VITALS: BP 119/82; PULSE 68; RESP 16; TEMP 36.4; O2SAT 97
[2023-05-20 20:28] VITALS: BP 128/84; PULSE 83; RESP 16; O2SAT 98
[2023-05-21 06:00] VITALS: RESP 16
--- NOTE | 2023-05-21 07:52 | PC.NURSE ---
PT CURRENTLY DENIES SI/HI/AH/VH. PT WAS EVASIVE WITH MORNING ASSESSMENT QUESTIONS ANSWERING WITH ONE WORD ANSWERS. PT APPEARS FLAT AND BLAND IN AFFECT. PT SPEECH IS DELAYED WHEN ANSWERING QUESTIONS OCCASIONALLY. PT CURRENT NEEDS ARE MET AT THIS TIME.
[2023-05-21] MEDS: thiamine 100 mg Tablet PO (08:13)
[2023-05-21] MEDS: multivitamin therapeutic Tablet 1 TAB PO (08:13)
[2023-05-21 14:00] VITALS: BP 124/87; PULSE 64; RESP 16; TEMP 37.1; O2SAT 98
[2023-05-21] MEDS: ibuprofen 600 mg Tablet PO (15:49)
--- NOTE | 2023-05-21 18:10 | P.NPUPN_ITS ---
Subjective NPU 2 Subjective: Patient presented today continuing to be fairly stoic per staff reports and direct observation. Reports are that she was less isolative and that was identifiable with her being more out of her room. She is working with the social work team for possible sober living options and has reportedly filled out referrals that have been sent. She continues to appear ambivalent per staff and direct observation but does report a desire to go to treatment. We continue to discuss medications and she has been somewhat resistant to initiating we continue to discuss whether a 21-day hold extension will be necessary. Mental Status Exam 2 MSE Comments: This is a well-nourished well-developed white female in hospital scrubs looking older than her stated age with limited hygiene and eye contact. No abnormal movements except for psychomotor retardation. Mostly uncooperative with exam in mild distress. Speech was limited and mostly decreased rate and volume. Mood described as okay, affect was less irritable. Thought process linear. Thought content: Patient did not report suicidal or homicidal ideation, there were no delusions reported but paranoia and possible persecutory and hyperreligious delusions noted, she did not report auditory or visual hallucinations and did not appear to be attending to internal stimuli. Attention and concentration were limited and memory was unreliable but none were formally tested. He is alert and oriented to person and place. Insight, judgment and impulse control are impaired. Vitals/I&O/Wt Last Vital Signs Temp 98.8 F 05/21/23 14:00 Pulse 64 05/21/23 14:00 Resp 16 05/21/23 14:00 BP 124/87 05/21/23 14:00 Pulse Ox 98 05/21/23 14:00 O2 Del Method Room Air 05/21/23 14:00 Data NPU 05/18/23 16:50 05/18/23 16:50 A&P Assessment and plan (1) Acute psychosis: (2) Paranoid delusion: (3) Hepatitis C: (4) Acute psychosis: (5) Post-traumatic stress disorder, chronic: Plan This is a 37-year-old white female with a history of psychotic disorder not otherwise specified currently admitted to the neuropsychiatric unit with psychosis. History of addiction and BAL of 237. 1.? ?Engage? patient in individual ,milieu, and group therapy ?2. ? We will attempt to gather collateral information from previous providers ?3. ? TO-15 minute checks on the unit. ?4.? Recommend sober living treatment at the highest level of care to which the patient is willing to commit. Involuntary Hold Information 2 96 Hour Hold: 96 Hour Involuntary Admission: Yes 96 Hour Hold Ending Date: 05/24/23 96 Hour Hold Ending Time: 00:01 Attestations NPU 2 Medical Necessity Statement*: Inpatient hospitalization is medically necessary and the clinically appropriate intervention at this time. We will monitor/initiate medications and make changes as indicated. Likely length of stay of 4-7 days. Coding Level of Care Code Acute Code for Chg Fwd Diagnoses Acute psychosis F23 Paranoid delusion F22 Hepatitis C B19.20 Post-traumatic stress disorder, chronic F43.12
--- NOTE | 2023-05-21 20:23 | PC.NURSE ---
asked pt multiple times to obtain vital signs. pt refused
[2023-05-22 06:00] VITALS: BP 135/89; PULSE 74; RESP 16; O2SAT 96
[2023-05-22] MEDS: folic acid 1 mg Tablet PO (07:48)
[2023-05-22] MEDS: thiamine 100 mg Tablet PO (07:48)
--- NOTE | 2023-05-22 08:26 | PC.NURSE ---
PT CURRENTLY DENIES SI/HI/AH/VH. PT HAS DELAYED SPEECH WHEN ANSWERING ASSESSMENT QUESTIONS AND IS RESPONDING TO INTERNAL STIMULI. PT WILL MUMBLE TO HERSELF PRIOR TO ANSWERING YOUR QUESTIONS. PT HAS PARANOID BEHAVIOR AND HAS TO BE CONVICTED TO TAKE MEDICATIONS AND WILL SOMETIME STILL REFUSE CERTAIN MEDICATIONS.
[2023-05-22] MEDS: paliperidone ER 6 mg Tablet PO (13:16)
[2023-05-22] MEDS: ibuprofen 600 mg Tablet PO (13:16)
[2023-05-22 14:00] VITALS: BP 114/74; PULSE 63; RESP 16; TEMP 36.7; O2SAT 96
--- NOTE | 2023-05-22 17:55 | P.NPUPN_ITS ---
Subjective NPU 2 Subjective: Patient presents today reporting that she has submitted paperwork with the social work team for rehab. At this point she is reporting a focus on her recovery and sober living treatment. She continues to seem ambivalent about most things per staff reports and direct observation. She did allow us to restart Invega and Zyprexa with a plan for the long-acting injectable when it is in stock tomorrow. She denies any side effects to the medication thus far. Mental Status Exam 2 MSE Comments: This is a well-nourished well-developed white female in hospital scrubs looking older than her stated age with limited hygiene and eye contact. No abnormal movements except for psychomotor retardation. Mostly uncooperative with exam in mild distress. Speech was limited and mostly decreased rate and volume. Mood described as okay, affect was less irritable. Thought process linear. Thought content: Patient did not report suicidal or homicidal ideation, there were no delusions reported but paranoia and possible persecutory and hyperreligious delusions noted, she did not report auditory or visual hallucinations and did not appear to be attending to internal stimuli. Attention and concentration were limited and memory was unreliable but none were formally tested. He is alert and oriented to person and place. Insight, judgment and impulse control are impaired. Vitals/I&O/Wt Last Vital Signs Temp 98.3 F 05/22/23 20:16 Pulse 64 05/22/23 20:16 Resp 15 05/22/23 20:16 BP 109/65 05/22/23 20:16 Pulse Ox 94 05/22/23 20:16 O2 Del Method Room Air 05/22/23 20:16 Data NPU 05/18/23 16:50 05/18/23 16:50 A&P Assessment and plan (1) Acute psychosis: (2) Paranoid delusion: (3) Hepatitis C: (4) Acute psychosis: (5) Post-traumatic stress disorder, chronic: Plan This is a 37-year-old white female with a history of psychotic disorder not otherwise specified currently admitted to the neuropsychiatric unit with psychosis. History of addiction and BAL of 237. 1.? ?Engage? patient in individual ,milieu, and group therapy ?2. ? Restart previous medication. ?3. ? TO-15 minute checks on the unit. ?4.? Recommend sober living treatment at the highest level of care to which the patient is willing to commit. 5. We will consider filing for 21-day hold tomorrow. Involuntary Hold Information 2 96 Hour Hold: 96 Hour Involuntary Admission: Yes 96 Hour Hold Ending Date: 05/24/23 96 Hour Hold Ending Time: 00:01 Attestations NPU 2 Medical Necessity Statement*: Inpatient hospitalization is medically necessary and the clinically appropriate intervention at this time. We will monitor/initiate medications and make changes as indicated. Likely length of stay of 3-6 days. May need more time and 21-day hold. Coding Level of Care Code Acute Code for [facility] Fwd Diagnoses Acute psychosis F23 Paranoid delusion F22 Hepatitis C B19.20 Post-traumatic stress disorder, chronic F43.12
[2023-05-22] MEDS: OLANZapine 10 mg TABLET PO (20:12)
[2023-05-22 20:16] VITALS: BP 109/65; PULSE 64; RESP 15; TEMP 36.8; O2SAT 94
[2023-05-23 06:00] VITALS: BP 126/77; PULSE 68; RESP 15; O2SAT 97
[2023-05-23] MEDS: thiamine 100 mg Tablet PO (08:35)
[2023-05-23] MEDS: paliperidone ER 6 mg Tablet PO (08:35)
[2023-05-23] MEDS: folic acid 1 mg Tablet PO (08:35)
--- NOTE | 2023-05-23 13:48 | P.NPUPN_ITS ---
Subjective NPU 2 Subjective: Patient presented today reporting that she was feeling better. She was less isolative per staff and direct observation. She began asking for her Klonopin to be restarted and we had a conversation about her drinking and concern for her being on Klonopin. She denied any side effects of the medication. We discussed the risk benefits and alternatives of her resuming the Invega Sustenna injectable and she understood and agreed to proceed as is documented in this note. She is awaiting stock availability for that first loading dose again. Mental Status Exam 2 MSE Comments: This is a well-nourished well-developed white female in hospital scrubs looking older than her stated age with improving hygiene and eye contact. No abnormal movements except for mild psychomotor retardation. More cooperative with exam in mild distress. Speech was limited and mostly decreased rate and volume. Mood described as okay, affect was congruent. Thought process linear. Thought content: Patient did not report suicidal or homicidal ideation, there were no delusions reported but paranoia and possible persecutory and hyperreligious delusions noted, she did not report auditory or visual hallucinations and did not appear to be attending to internal stimuli. Attention and concentration were limited and memory was unreliable but none were formally tested. He is alert and oriented to person and place. Insight, judgment and impulse control are impaired. Vitals/I&O/Wt Last Vital Signs Temp 98.3 F 05/22/23 20:16 Pulse 68 05/23/23 06:00 Resp 15 05/23/23 06:00 BP 126/77 05/23/23 06:00 Pulse Ox 97 05/23/23 06:00 O2 Del Method Room Air 05/23/23 06:00 Data NPU 05/18/23 16:50 05/18/23 16:50 A&P Assessment and plan (1) Acute psychosis: (2) Paranoid delusion: (3) Hepatitis C: (4) Acute psychosis: (5) Post-traumatic stress disorder, chronic: Plan This is a 37-year-old white female with a history of psychotic disorder not otherwise specified currently admitted to the neuropsychiatric unit with psychosis. History of addiction and BAL of 237. 1.? ?Engage? patient in individual ,milieu, and group therapy ?2. ? Restart previous medication. Awaiting Invega Sustenna injection to administer loading dose 234 mg IM to deltoid. ?3. ? TO-15 minute checks on the unit. ?4.? Recommend sober living treatment at the highest level of care to which the patient is willing to commit. 5. Filed for 21-day hold in part secondary to additional needs were time but in part due to question of whether family will be ready and able to take her prior to hold being complete. Will await social work team communication about sister and family's plan as she awaits her turning leaf bed to date of the 06/27/2023. Involuntary Hold Information 2 96 Hour Hold: 96 Hour Involuntary Admission: Yes 96 Hour Hold Ending Date: 05/24/23 96 Hour Hold Ending Time: 00:01 Attestations NPU 2 Medical Necessity Statement*: Inpatient hospitalization is medically necessary and the clinically appropriate intervention at this time. We will monitor/initiate medications and make changes as indicated. Likely length of stay of 1-4 days. May need more time and 21-day hold. Coding Level of Care Code Acute Code for [facility] Fwd Diagnoses Acute psychosis F23 Paranoid delusion F22 Hepatitis C B19.20 Post-traumatic stress disorder, chronic F43.12
[2023-05-23 14:00] VITALS: BP 104/77; PULSE 100; RESP 17; TEMP 36.5; O2SAT 96
[2023-05-23] MEDS: ibuprofen 600 mg Tablet PO (16:31)
[2023-05-23] MEDS: OLANZapine 10 mg TABLET PO (20:10)
[2023-05-23 20:31] VITALS: BP 101/70; PULSE 79; RESP 17; O2SAT 96
[2023-05-24 06:00] VITALS: RESP 16
--- NOTE | 2023-05-24 06:46 | PC.NURSE ---
Unable to obtain patients vitals due to patient sleeping. RR obtained.
[2023-05-24] MEDS: folic acid 1 mg Tablet PO (08:15)
[2023-05-24] MEDS: paliperidone ER 6 mg Tablet PO (08:15)
[2023-05-24] MEDS: thiamine 100 mg Tablet PO (08:15)
--- NOTE | 2023-05-24 08:33 | P.NPUPN_ITS ---
Subjective NPU 2 Subjective: Patient presented today reporting that she is doing okay and was once again wondered about possibility of Klonopin. We discussed that we did not feel it is a good idea. However we will allow her Dr. Puentes to consider the possibilities tomorrow. We discussed the possibility of discharge beginning week but she is aware we filed an extension of the 96-hour hold and some question about discharge plan. Mental Status Exam 2 MSE Comments: This is a well-nourished well-developed white female in hospital scrubs looking older than her stated age with poor hygiene. No abnormal involuntary motor movements except for mild psychomotor retardation. She was cooperative with exam in mild distress. Speech was slow in rate, normal in volume and normal in prosody. Mood described as allright. Her affect remained odd and subdued. Thought process was linear. Thought content: Patient did not report suicidal or homicidal ideation, there were no delusions appreciated but odd somatic complaints. She did not appear to be responding to internal stimuli. Attention and concentration were limited and memory was unreliable but none were formally tested. He is alert and oriented to person and place. Insight was poor. Judgment was poor. Impulse control was limited. Vitals/I&O/Wt Last Vital Signs Temp 97.7 F 05/23/23 14:00 Pulse 79 05/23/23 20:31 Resp 16 05/24/23 06:00 BP 101/70 05/23/23 20:31 Pulse Ox 96 05/23/23 20:31 O2 Del Method Room Air 05/23/23 20:31 Data NPU 05/18/23 16:50 05/18/23 16:50 A&P Assessment and plan (1) Acute psychosis: (2) Paranoid delusion: (3) Hepatitis C: (4) Acute psychosis: (5) Post-traumatic stress disorder, chronic: Plan This is a 37-year-old white female with a history of psychotic disorder not otherwise specified currently admitted to the neuropsychiatric unit with psychosis. History of addiction and BAL of 237. 1.? ?Engage? patient in individual ,milieu, and group therapy ?2. ? Restart previous medication. Awaiting Invega Sustenna injection to administer loading dose 234 mg IM to deltoid. ?3. ? TO-15 minute checks on the unit. ?4.? Recommend sober living treatment at the highest level of care to which the patient is willing to commit. 5. Filed for 21-day hold in part secondary to additional needs were time but in part due to question of whether family will be ready and able to take her prior to hold being complete. Will await social work team communication about sister and family's plan as she awaits her turning leaf bed to date of the 06/27/2023. Involuntary Hold Information 2 96 Hour Hold: 96 Hour Involuntary Admission: Yes 96 Hour Hold Ending Date: 05/24/23 96 Hour Hold Ending Time: 00:01 Attestations NPU 2 Medical Necessity Statement*: Inpatient hospitalization is medically necessary and the clinically appropriate intervention at this time. We will monitor/initiate medications and make changes as indicated. The patient's likely length of stay of 3-4 days. Coding Level of Care Code Acute Code for g Fwd Diagnoses Acute psychosis F23 Paranoid delusion F22 Hepatitis C B19.20 Post-traumatic stress disorder, chronic F43.12
[2023-05-24] MEDS: ibuprofen 600 mg Tablet PO ×2 (09:17→15:16)
--- NOTE | 2023-05-24 13:21 | PC.NURSE ---
Patient requested medication for headache. This nurse administered Tylenol. Patient decided to not take medication because she didn't think it is actually acetaminophen. This nurse removed medication from packaging in front of patient and allowed patient to inspect packaging. Patient states that she is seeng letters on there that shouldn't be on the pills.
[2023-05-24 14:00] VITALS: BP 114/79; PULSE 93; RESP 15; TEMP 36.5; O2SAT 98
--- NOTE | 2023-05-24 15:13 | PC.NURSE ---
According to inpatient pharmacy, they do not have Invega Sustenna 234 injections available. Out patient pharmacy and [facility] do not have them either.
[2023-05-24] MEDS: OLANZapine 10 mg TABLET PO (20:10)
[2023-05-24 20:36] VITALS: BP 91/57; PULSE 60; RESP 16; TEMP 36.6; O2SAT 94
--- NOTE | 2023-05-24 20:54 | PC.NURSE ---
IN BED RESTING AROUSES TO VOICE DENIES SI/H AND AVH AT THIS TIME. DENIES PAIN. RATES ANXIETY 5/10 AND DEPRESSION 0/10. DECLINES ANY ANTI-ANXIETY MEDS, STATES I'M WAITING FOR THE NEW TO GIVE ME MY XANAX. PT EDUCATED THAT DR. SR WAS STILL ON AND THERE ISN'T ANOTHER COMING ON FOR A FEW DAYS. PT TOOK PM MEDS WITHOUT ISSUE. ALL QUESTIONS ANSWERED AND SUPPORT VOICED. PT IS NOTED TO HAVE A FLAT AFFECT, WITHDRAWS AND ISOLATES TO ROOM. ENCOURAGED TO INTERACT WITH STAFF ANE PEERS BUT DECLINES.
--- NOTE | 2023-05-25 00:32 | PC.NURSE ---
CIWA PROTOCOL DISCONTINUED PER ORDERS. PT HAS NOT SCORED OR RECEIVED CIWA MEDICATIONS FOR MORE THAN 48 HOURS.
[2023-05-25 06:00] VITALS: RESP 15
[2023-05-25] MEDS: paliperidone ER 6 mg Tablet PO (08:01)
[2023-05-25] MEDS: thiamine 100 mg Tablet PO (08:01)
[2023-05-25] MEDS: folic acid 1 mg Tablet PO (08:01)
[2023-05-25] MEDS: ibuprofen 600 mg Tablet PO (13:03)
[2023-05-25 13:17] VITALS: BP 112/85; PULSE 102; RESP 16; TEMP 36.4; O2SAT 95
--- NOTE | 2023-05-25 17:54 | P.NPUPN_ITS ---
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 Patient had endorsed some concerns about homelessness. She states that she had not been a good candidate to return home to live with her . She states that her thoughts have been more clear. She continued to request a benzodiazepine for managing her anxiety as she repeatedly stated being anxious but was unable to expand upon any details regarding her anxiety. The patient was informed that it was unlikely that she would be placed on a benzodiazepine for managing anxiety given her past history of alcohol abuse. She continues to report a myriad of complaints including having bodyaches and stated that she wanted pain medication as well. She states that she is hopeful about going to [facility] upon discharge from this unit. Mental Status Exam 2 MSE Comments: This is a well-nourished well-developed white female in hospital scrubs looking older than her stated age with poor hygiene. No abnormal involuntary motor movements except for mild psychomotor retardation. She was cooperative with exam in mild distress. Speech was decreased in rate, normal in volume and normal in prosody. Mood described as anxious. Her affect was subdued. Thought process was linear. Thought content: Patient did not report suicidal or homicidal ideation, there were no delusions appreciated but odd somatic complaints. She did not appear to be responding to internal stimuli. Attention and concentration were limited and memory was unreliable but none were formally tested. He is alert and oriented to person and place. Insight was poor. Judgment was poor. Impulse control was limited. Vitals/I&O/Wt Last Vital Signs Temp 97.5 F L 05/25/23 13:17 Pulse 102 H 05/25/23 13:17 Resp 16 05/25/23 13:17 BP 112/85 05/25/23 13:17 Pulse Ox 95 05/25/23 13:17 O2 Del Method Room Air 05/25/23 13:17 Data NPU 05/18/23 16:50 05/18/23 16:50 A&P Assessment and plan (1) Acute psychosis: (2) Paranoid delusion: (3) Hepatitis C: (4) Acute psychosis: (5) Post-traumatic stress disorder, chronic: Plan This is a 37-year-old white female with a history of psychotic disorder not otherwise specified currently admitted to the neuropsychiatric unit with psychosis. History of addiction and BAL of 237. 1.? ?Engage patient in individual ,milieu, and group therapy ?2. ? Restart previous medication. Awaiting Invega Sustenna injection to administer loading dose 234 mg IM to deltoid on 05/27/23. ?3. ? TO-15 minute checks on the unit. ?4.? Recommend sober living treatment at the highest level of care to which the patient is willing to commit. 5. Filed for 21-day hold in part secondary to additional needs were time but in part due to question of whether family will be ready and able to take her prior to hold being complete. Will await social work team communication about sister and family's plan as she awaits her turning leaf bed to date of the 06/27/2023. Involuntary Hold Information 2 96 Hour Hold: 96 Hour Involuntary Admission: Yes 96 Hour Hold Ending Date: 05/24/23 96 Hour Hold Ending Time: 00:01 Attestations NPU 2 Medical Necessity Statement*: Inpatient hospitalization is medically necessary and the clinically appropriate intervention at this time. We will monitor/initiate medications and make changes as indicated. The patient's likely length of stay of 3-7 days. Coding Level of Care Code Acute Code for Ch[facility] Fwd Diagnoses Acute psychosis F23 Paranoid delusion F22 Hepatitis C B19.20 Post-traumatic stress disorder, chronic F43.12
[2023-05-25] MEDS: acetaminophen 325 mg Tablet 650 MG PO (18:02)
[2023-05-25 20:19] VITALS: BP 99/65; PULSE 64; RESP 16; TEMP 36.3; O2SAT 97
--- NOTE | 2023-05-25 20:28 | PC.NURSE ---
IN ROOM RESTING, PT REQUEST HER LIGHT ABOVE HER BED BE LEFT ON,EVEN WHEN SLEEPING SO SHE CAN SEE THE ANGELS. PT DENIES PAIN, DENIES SI/HI AND AVH AT THIS TIME. PT STATES I DO SEE ANGELS AND STUFF BUT THAT REALLY DOESN'T COUNT. PT WAS ASKED TO DESCRIBE WHAT SHE IS SEEING, PT LOOKED AT THIS RN AND SAID, JUST LOOK AT THEM, THEIR RIGHT THERE AND YOU CAN SEE WHAT THEY LOOK LIKE. RATES ANXIETY 5/10 AND DEPRESSION 5/10. DECLINES ANTI-ANXIETY MEDS, STATES SHE IS WAITING FOR THE DR. TO PRESCRIBE HER CLONAZEPAM AT NIGHT LIKE LAST TIME. : PT WAS EDUCATED THAT THIS RN WOULD CHECK WITH DR TO SEE IF IT WILL BE PRESCRIBED. ALL QUESTIONS ANSWERED AND SUPPORT VOICED.
[2023-05-25] MEDS: OLANZapine 10 mg TABLET PO (21:42)
[2023-05-26 06:00] VITALS: BP 126/87; PULSE 80; RESP 15; TEMP 36.4; O2SAT 98
[2023-05-26] MEDS: paliperidone ER 6 mg Tablet PO (08:13)
[2023-05-26] MEDS: thiamine 100 mg Tablet PO (08:13)
[2023-05-26] MEDS: ibuprofen 600 mg Tablet PO (09:26)
[2023-05-26] MEDS: docusate sodium 100 mg Capsule PO (09:26)
[2023-05-26 14:00] VITALS: BP 108/80; PULSE 82; RESP 16; TEMP 36.6; O2SAT 94
--- NOTE | 2023-05-26 14:07 | P.NPUPN_ITS ---
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 Patient reported continued somatic complaints. She reported that she had restless legs. She had reported that she had pain and anxiety and reported previously having been successfully tried on gabapentin to manage her pain. Patient reported no thoughts of hurting herself today. She had stated that she was hopeful about being placed outside of her home if she was no longer welcome to live with her . She had acknowledged a history of anxiety and a history of hearing voices. Patient had required some prompting from staff for completion of activities of daily living. She had reported adequate sleep. Mental Status Exam 2 MSE Comments: This is a well-nourished well-developed white female in hospital scrubs looking older than her stated age with poor hygiene. No abnormal involuntary motor movements except for mild psychomotor retardation. She was cooperative with exam in mild distress. Speech was slow in rate, normal in volume and normal in prosody. Mood described as allright. Her affect remained odd and subdued. Thought process was linear. Thought content: Patient did not report suicidal or homicidal ideation, there were no delusions appreciated but odd somatic complaints. She did not appear to be responding to internal stimuli. Attention and concentration were limited and memory was unreliable but none were formally tested. He is alert and oriented to person and place. Insight was poor. Judgment was poor. Impulse control was limited. Vitals/I&O/Wt Last Vital Signs Temp 97.9 F 05/26/23 14:00 Pulse 82 05/26/23 14:00 Resp 16 05/26/23 14:00 BP 108/80 05/26/23 14:00 Pulse Ox 94 05/26/23 14:00 O2 Del Method Room Air 05/26/23 14:00 Data NPU 05/18/23 16:50 05/18/23 16:50 A&P Assessment and plan (1) Acute psychosis: (2) Paranoid delusion: (3) Hepatitis C: (4) Acute psychosis: (5) Post-traumatic stress disorder, chronic: Plan This is a 37-year-old white female with a history of psychotic disorder not otherwise specified currently admitted to the neuropsychiatric unit with psychosis. History of addiction and BAL of 237. 1.? ?Engage patient in individual ,milieu, and group therapy ?2. ? Continue invega oral 6mg daily. Awaiting Invega Sustenna injection to administer loading dose 234 mg IM to deltoid on 05/27/23. ?3. ? TO-15 minute checks on the unit. Add Gabapentin 300mg tid. ?4.? Recommend sober living treatment at the highest level of care to which the patient is willing to commit. 5. Filed for 21-day hold in part secondary to additional needs were time but in part due to question of whether family will be ready and able to take her prior to hold being complete. Will await social work team communication about sister and family's plan as she awaits her turning leaf bed to date of the 06/27/2023. Involuntary Hold Information 2 96 Hour Hold: 96 Hour Involuntary Admission: Yes 96 Hour Hold Ending Date: 05/24/23 96 Hour Hold Ending Time: 00:01 Attestations NPU 2 Medical Necessity Statement*: Inpatient hospitalization is medically necessary and the clinically appropriate intervention at this time. We will monitor/initiate medications and make changes as indicated. The patient's likely length of stay of 3-5 days. Coding Level of Care Code Acute Code for Chg Fwd Diagnoses Acute psychosis F23 Paranoid delusion F22 Hepatitis C B19.20 Post-traumatic stress disorder, chronic F43.12
[2023-05-26] MEDS: gabapentin 300 mg Capsule PO ×2 (14:26→20:09)
--- NOTE | 2023-05-26 17:48 | PC.NURSE ---
Patient has come to window on three separate occassions for clean clothing after having an episode of diarrhea in her pants. Patient given shower items along with clean clothing with each situation. Patient states that she does not want medication to help with this. Patient given pull up.
[2023-05-26 19:30] VITALS: BP 115/77; PULSE 72; RESP 16; TEMP 36.8; O2SAT 97
[2023-05-26] MEDS: OLANZapine 10 mg TABLET PO (20:09)
[2023-05-27 06:00] VITALS: BP 94/66; PULSE 95; RESP 14; TEMP 37.6; O2SAT 94
[2023-05-27] MEDS: paliperidone ER 6 mg Tablet PO (08:14)
[2023-05-27] MEDS: folic acid 1 mg Tablet PO (08:15)
[2023-05-27] MEDS: multivitamin therapeutic Tablet 1 TAB PO (08:15)
[2023-05-27] MEDS: thiamine 100 mg Tablet PO (08:15)
[2023-05-27] MEDS: gabapentin 300 mg Capsule PO (08:15)
[2023-05-27] MEDS: ibuprofen 600 mg Tablet PO (08:43)
--- NOTE | 2023-05-27 13:09 | W.PM.NPUDCS ---
Diagnoses at Discharge Discharge Diagnosis (1) Acute psychosis: Status: Resolved (2) Paranoid delusion: Status: Resolved (3) Hepatitis C: Status: Inactive (4) Post-traumatic stress disorder, chronic: Status: Chronic Reason for Visit Reason for Visit: PSYCH EVAL Brief History: History of Present Illness Yessica Vasquez is a 38 year old female who presented to the emergency department with the following report: Chief Complaint: Psychiatric Symptoms Stated Complaint: PSYCH EVAL Time Seen by Provider: 05/18/23 16:38 Source: patient and police Mode of arrival: other (police) Limitations: altered mental status History of Present Illness: Patient is a 38-year-old female with an extensive psych history here after she was brought by police along with an affidavit for mental health evaluation. According to vice squad police officer he has been contacted regarding patient multiple times over the past several weeks. She has been found multiple times walking in the middle of the highways. There have been several instances where she has almost been hit by other vehicles. Police state today they found her intoxicated and appeared to acutely psychotic thus prompting her ED visit. Patient tells me she walks in the middle of the road as she is following cracks in the asphalt stating that she sees angels and sarkis that tell her to do this. On exam patient's behavior and speech is bizarre and disorganized. MD complaint: altered mental status and other (psychosis) Onset (ago): day(s) History of same: Yes Relieving factors: none Exacerbating factors: alcohol Context: recent alcohol abuse Associated psychiatric symptoms: visual hallucinations Associated symptoms: Reports visual hallucinations; Deny auditory hallucinations, homicidal ideation or suicidal ideation Treatments prior to arrival: none She was admitted to the neuropsychiatric unit for definitive treatment of those issues. Patient presented as she sometimes does as a limited historian basically staring blankly after questions were asked. She had no explanation for why she Being found by the police walking aimlessly on the highway. Initially she said she just came into the hospital then she was able to identify that she was brought in by the police but could not explain why she was brought in by the police. We discussed that they had significant concerns about her odd behavior. Attempted to ask about how addiction might have impacted her situation and she reports that she does not think that addiction has played a role in all. We discussed the fact that addiction has played a role in the past and try to get her to explain how things have been different since she was here in October. She can give really no responses. She reports that she is adherent to her medication and we discussed concerns that it would be hard to be intoxicated and/or wandering and also on point with medication adherence. We reviewed her last discharge summary and an excerpt is included below for context and history given her limitations and her reporting that there have been no substantive changes in the last 7 months. Per her 10/16/2022 [facility] inpatient psychiatric discharge summary: Discharge Diagnosis (1) Acute psychosis: Status: Acute (2) Paranoid delusion: Status: Acute (3) Hepatitis C: Status: Acute (4) Head lice: Status: Acute Reason for Visit Reason for Visit: 96 Brief History: History of Present Illness Yessica Vasquez is a 37 year old female with a previous history of psychosis admitted here in June 2021 who presented to the emergency department by law enforcement. She had apparently been convinced that the law enforcement was trying to put something in her neck and she had made an attempt to slice her throat. She was placed here on a 96-hour hold and was initially treated for head lice in the intensive care unit with additional medical problems including elevated liver function tests. She was transferred to the neuropsychiatric unit today for further evaluation and treatment. She had been unable to describe why she was in the hospital. She had appeared quite confused and stated that she was here for the truth. She had reported that the police had brought her here. She had appeared at times distracted and the interview was paused briefly as the patient had appeared to say something to someone that was not in the room. She had refused to take any medications and was unwilling to discuss any of the reasons that she may have been placed here. She did report that she was in a place where she could seen and was reporting that she felt that there was a special reason for her to be here at this time. She denied any thoughts of hurting herself or others. She was informed that she was here involuntarily and did not appear to be willing to discuss her problems any further. She had refused all medications involved in her potential treatment although she had reported having active symptoms suggestive of a urinary tract infection. She had refused to have any further testing done as she had reported that there may be poison in the needle. Past psychiatric history: Unknown other than reports that the patient had been hospitalized here in June 2021. Drug and alcohol history: Reported history of alcohol abuse and intravenous drug use. Legal history: Unknown history: Unknown Medications: None Surgeries: Refused to answer Allergies: Morphine and bee venom protein Medical history: Hepatitis C active, head lice active, urinary tract infection Social history: Patient reports that she was born in [place] and reports having graduated from high school while residing with her mother. She states that she had previously lived in [place] and had worked. She reports having 4 children. She did not elaborate any further other than stating that she lives with a good friend name Mark in [place]. Exerpt provided here from Discharge Summary from June 2021 at [facility] is believed that the air however you Discharge Diagnosis (1) Psychosis: Status: Acute Qualifiers: Psychosis type: other Qualified Code(s): F28 - Other psychotic disorder not due to a substance or known physiological condition (2) History of alcohol abuse: Status: Chronic (3) History of intravenous drug abuse: Status: Chronic (4) RLS (restless legs syndrome): Status: Chronic (5) GERD (gastroesophageal reflux disease): Status: Chronic Qualifiers: Esophagitis presence: esophagitis presence not specified Qualified Code(s): K21.9 - Gastro-esophageal reflux disease without esophagitis (6) Cannabis use disorder, moderate, dependence: Status: Chronic (7) Post-traumatic stress disorder, chronic: (8) Anxiety: Status: Chronic (9) Essential (primary) hypertension: Status: Chronic (10) Mixed hyperlipidemia: Status court order 96 Brief History: History of Present Illness Yessica Vasquez is a 36 year old female who was admitted from our emergency department yesterday with the following report: General: Chief Complaint: Psychiatric Symptoms Stated Complaint: court order 96 Time Seen by Provider: 06/22/21 19:27 Source: patient and police Mode of arrival: other (police custody) Limitations: no limitations History of Present Illness: HPI Narrative: Patient is a 36-year-old female who presents to ED today in police custody after they served her 96-hour hold paperwork. Patient is essentially denying all accusations and states she does not know why she is here. Patient's hold paperwork is very lengthy and some of it is illegible. It seems to consistent of several random incidents-I will try and describe here: She constantly calls ambulances but then when she arrives to the hospital immediately leaves. She apparently was missing for 2 days and then found standing in a dollar store opening and closing a freezer door. Her 13-year-old son went to an all-night skate green party but states after an hour she grabbed a pellet/BB gun and went to go try to pick him up. Hold paperwork states she has not bathed in over a month. She apparently placed her son in school and then immediately after one day decided she was moving and took him back out of school. She has disappeared on several occasions for days. She apparently has gotten knives and threatened people with them-even her 13-year-old son. She has threatened to jump out of vehicles. She has slept with knives under her pillow. complaint: other (96 hour hold) Associated symptoms: Deny auditory hallucinations, visual hallucinations, depression, homicidal ideation or suicidal ideation Treatments prior to arrival: placed on mental health hold. She was admitted to the neuropsychiatry unit for treatment of these issues.She says that everything in the affidavit from her aunt is a lie. She says that her aunt is trying to get her children from her. She says that she did not go to a [employer] rank with a pellet gun. She says that she does not have a car. She does not remember anything about her son going to a [employer] rink. She was told that her thinking did not appear to be clear last night in the emergency room. She did not want them to draw her blood because she said that there was poison on the needle. She said that she has a phobia of needles ever since her many years ago gave her an injection of something and she woke up with numbness and other problems. I asked her if she thought that it was logical to think that the hospital would be purposely putting poison on the needle to draw her blood and she did not answer. I tried again and she still would not answer whether that was logical or not. He denies thinking that anyone else was out to get her other than her aunt. She denies any difficulty recently with sleep or appetite. She denies hearing any voices or seeing anything that is not there. She said that she was depressed and having difficulties when she saw Dr. Rader last year. She said that the medications that Dr. Rader gave her did not help last year. She says that she has wondered she just visualizes something she can fall asleep without difficulties. She denies having nightmares. She does not feel that she has been depressed lately. She has benzodiazepines in her urine at her previous admission and again last night in the emergency room. She denies using any benzodiazepines. She did ask for benzodiazepines during the last admission but was advised why that was a bad idea. After I told her that she had benzodiazepine she said ?well maybe give me a couple of Valium. She denies using alcohol, methamphetamine, marijuana or any drugs. She does not want to take any drugs. I asked her about the prazosin that her primary care provider gave her. She did not know what that was for. Hospital Course During the hospitalization, patient had routine laboratory studies which were within normal limits except for few outliers. Additionally there was a general medical evaluation which was also within normal limits and revealed no new acute processes. At the time of discharge, lethality was denied and psychosis was resolving. Mood and anxiety were well managed. Patient endorsed a plan to avoid all drugs of abuse and follow-up with the aftercare recommendations of the treatment team. The patient had initially required substantial interventions by the medical team to help manage her lungs infestation. She had been somewhat noncooperative and refusing to take medications but was placed on a 21-day hold and was started on Invega and later transition to the intramuscular Invega sustain. She had received both doses of Invega sustain at 234 mg and 1 week later 156 mg with notable improvement and a substantial reduction in her psychotic symptoms. She had remained somewhat guarded regarding use of oral medications but was agreeable to continuing with the medications as prescribed prior to discharge. She was informed that she would require another intramuscular injection of paliperidone around November 12, 2022. Patient was evaluated and deemed to be absent credible lethality, and had achieved the maximum benefit from an inpatient hospitalization, so was discharged. Hospital Course Hospital Course During the hospitalization, the patient had routine laboratory studies which were within normal limits except for a few outliers.? Additionally, there was a general medical evaluation which was also within normal limits and revealed no new acute processes.? At the time of discharge, lethality was denied and psychosis was resolving.? Mood and anxiety were well managed.? The patient endorsed a plan to avoid all drugs of abuse and follow up with the aftercare recommendations of the treatment team.? The patient was evaluated and deemed to be absent credible lethality and had achieved the maximum benefit from an inpatient hospitalization, and so was discharged.? Involuntary Hold Information 96 Hour Hold: 96 Hour Involuntary Admission: Yes 96 Hour Hold Ending Date: 05/24/23 96 Hour Hold Ending Time: 00:01 Mental Status Exam MSE Comments: This is a well-nourished well-developed white female in hospital scrubs looking older than her stated age with poor hygiene. No abnormal involuntary motor movements except for mild psychomotor retardation. She was cooperative with exam in mild distress. Speech was normal in rate, normal in volume and normal in prosody. Mood described as okay. Her affect remained somewhat blunted. Thought process was linear. Thought content: Patient did not report suicidal or homicidal ideation, there were no delusions appreciated but odd somatic complaints. She did not appear to be responding to internal stimuli. Attention and concentration were limited. He is alert and oriented to person and place. Insight was poor. Judgment was limited.. Impulse control was adequate. Discharge Data Studies Completed and Pending: Laboratory Results WBC 6.84 10^3/uL (3.2 9-11.43) 05/18/23 16:50 RBC 5.03 10^6/uL (3.8 5-5.65) 05/18/23 16:50 Hgb 16.30 g/dL (11.27 -16.99) 05/18/23 16:50 Hct 48.3 % (36-47) H 05/18/23 16:50 MCV 96.0 fl (85-98) 05/18/23 16:50 MCH 32.4 pg (27-33) 05/18/23 16:50 MCHC 33.7 g/dL (30-55) 05/18/23 16:50 RDW 12.6 % (12.1-15.1 ) 05/18/23 16:50 Plt Count 202 10^3/cmm (157 -399) 05/18/23 16:50 MPV 8.6 fL (7.4-10.4) 05/18/23 16:50 Neut % (Auto) 43.9 % 05/18/23 16:50 Lymph % (Auto) 46.8 % 05/18/23 16:50 Beltrami % (Auto) 5.3 % 05/18/23 16:50 Eos % (Auto) 1.9 % 05/18/23 16:50 Baso % (Auto) 0.6 % 05/18/23 16:50 Neut # (Auto) 3.01 10^3/uL (1.8 -7.7) 05/18/23 16:50 Lymph # (Auto) 3.2 10^3/uL (0.8- 4.8) 05/18/23 16:50 Beltrami # (Auto) 0.4 10^3/uL (0.2- 0.9) 05/18/23 16:50 Eos # (Auto) 0.1 10^3/uL (0.0- 0.8) 05/18/23 16:50 Baso # (Auto) 0.0 10^3/uL (0.0- 0.1) 05/18/23 16:50 Nucleated RBC % (a uto) 0 % 05/18/23 16:50 Nucleated RBCs # 0.0 /100WBC 05/18/23 16:50 Sodium 142 mmol/L (136-1 45) 05/18/23 16:50 Potassium 3.5 mmol/L (3.5-5 .1) 05/18/23 16:50 Chloride 104 mmol/L (98-10 7) 05/18/23 16:50 Carbon Dioxide 28 mmol/L (22-29) 05/18/23 16:50 Anion Gap 13.5 (5-19) 05/18/23 16:50 BUN 6 mg/dL (6-20) 05/18/23 16:50 Creatinine 0.8 mg/dL (0.5-0. 9) 05/18/23 16:50 GFR Calculation 79.9 mL/min (90-1 30) L 05/18/23 16:50 Glucose 95 mg/dL (65-115) 05/18/23 16:50 Calculated Osmolal ity 291 mOsm/kg (285- 295) 05/18/23 16:50 Calcium 9.2 mg/dL (8.5-10 .5) 05/18/23 16:50 Total Bilirubin 0.5 mg/dL (0.15-1 .2) 05/18/23 16:50 AST 150 U/L (0-32) H 05/18/23 16:50 ALT 89 U/L (0-33) H 05/18/23 16:50 Alkaline Phosphata se 86 U/L (35-105) 05/18/23 16:50 Total Protein 7.9 g/dL (6.6-8.7 ) 05/18/23 16:50 Albumin 4.0 g/dL (3.5-5.2 ) 05/18/23 16:50 Globulin 3.9 g/dL (1.3-4.6 ) 05/18/23 16:50 TSH 1.66 uIU/mL (0.27 -4.20) 05/18/23 16:50 HCG, Qual Negative (Negati ve) 05/18/23 16:50 Urine Color Dark yellow (Yel low) 05/19/23 10:33 Urine Appearance Cloudy (CLEAR) A 05/19/23 10:33 Urine pH 5 (5-7) 05/19/23 10:33 Ur Specific Gravit y 1.030 (1.005-1.0 30) 05/19/23 10:33 Urine Protein Neg (Negative) 05/19/23 10:33 Urine Glucose (UA) Norm (Normal) 05/19/23 10:33 Urine Ketones Negative (Negati ve) 05/19/23 10:33 Urine Blood Neg (Negative) 05/19/23 10:33 Urine Nitrate Negative (Negati ve) 05/19/23 10:33 Urine Bilirubin 1+ (Negative) H 05/19/23 10:33 Urine Urobilinogen 8 mg/dL (Negative ) H 05/19/23 10:33 Ur Leukocyte Em ase 1+ (Negative) H 05/19/23 10:33 Urine RBC 0-4 /hpf (0-2) H 05/19/23 10:33 Urine WBC 25-40 /hpf (0-5) H 05/19/23 10:33 Ur Squamous Epith Cells 25-40 /hpf (0-5) H 05/19/23 10:33 Calcium Oxalate Cr ystal 0-4 /hpf H 05/19/23 10:33 Amorphous Sediment Not Reportable 05/19/23 10:33 Urine Bacteria 1+ /hpf (NONE) H 05/19/23 10:33 Urine Mucus 2+ /hpf 05/19/23 10:33 Salicylates < 0.3 mg/dL (3-10 ) L 05/18/23 16:50 Urine Opiates Scre en Negative ng/mL (N egative) 05/18/23 16:54 Acetaminophen < 5.0 ug/mL (10-3 0) L 05/18/23 16:50 Ur Barbiturates Sc reen Negative ng/mL (N egative) 05/18/23 16:54 Ur Phencyclidine S crn Negative ng/mL (N egative) 05/18/23 16:54 Ur Amphetamines Sc reen Negative ng/mL (N egative) 05/18/23 16:54 U Benzodiazepines Scrn Negative ng/mL (N egative) 05/18/23 16:54 Urine Cocaine Scre en Negative ng/mL (N egative) 05/18/23 16:54 U Marijuana (THC) Screen Negative ng/mL (N egative) 05/18/23 16:54 Ethyl Alcohol 237 mg/dL (0-10) H 05/18/23 16:50 Influenza Type A A g negative (Negati ve) 05/18/23 20:05 Influenza Type B A g negative (Negati ve) 05/18/23 20:05 SARS-CoV-2 Ag (Rap id) negative (Negati ve) 05/18/23 17:30 Vitals: Last Vital Signs Temp 99.7 F H 05/27/23 06:00 Pulse 95 05/27/23 06:00 Resp 14 05/27/23 06:00 BP 94/66 05/27/23 06:00 Pulse Ox 94 05/27/23 06:00 O2 Del Method Room Air 05/27/23 06:00 Discharge Plan Discharge Patient Disposition: Home Condition: Stable Prescriptions: New paliperidone 6 mg Tablet Extended Release 24hr 6 mg PO DAILY 30 Days Qty: 30 1RF olanzapine 10 mg Tablet 10 mg PO BEDTIME 30 Days Qty: 30 1RF Vitamin B-1 (mononitrate) 100 mg Tablet 100 mg PO DAILY 30 Days Qty: 30 1RF gabapentin 300 mg Capsule 300 mg PO TID 30 Days Qty: 90 1RF folic acid 1 mg Tablet 1 mg PO DAILY 30 Days Qty: 30 1RF Discharge Orders: Discharge Order (Routine); Ordered 05/27/23 Ordered By: Herminio Puentes Referrals: [facility] [Other] - 06/27/23 11:00 am [facility] [Outside] - 05/29/23 3:30 pm (Initial appointment 05/29/23 @ 3:30 pm with Georgia Walker ) Discharge Diet: Usual diet Discharge Activity: Resume usual activity Patient Instructions: Folic Acid (By mouth), Gabapentin (By mouth), Olanzapine (By mouth), Paliperidone (By mouth), Opioid Safety, Pain Management Discharge Attestations NPU Time Spent in Discharge Care*: less than 30 min Specific Discharge Activities: Specific discharge activities: educating patient, discussing with shelter case manager/social workers/dc planners, documenting/other paperwork and evaluating patient/reviewing data Status at Discharge: Cognitive status at discharge: cognitively intact, Behavioral status at discharge: cooperative and can be uncooperative, Coding Level of Care Code Acute Code for [facility] Fwd Diagnoses Acute psychosis F23 Paranoid delusion F22 Hepatitis C B19.20 Post-traumatic stress disorder, chronic F43.12
[2023-05-27 13:15] VITALS: BP 94/66; PULSE 95; RESP 14; TEMP 37.6; O2SAT 94
--- NOTE | 2023-05-27 15:58 | PC.OT ---
OT ORDERS FOR EMILIO EVALUATION RECEIVED; HOWEVER, PATIENT DISCHARGED PRIOR TO EVALUATION ATTEMPT.
== END 2023-05-27 14:01 | disposition home or self-care (01) | DRG 897 ==
LOC: ER 21:47 → NP 22:12
PROVIDERS: Admitting Provider Psychiatry & Neurology Psychiatry; Emergency Provider Physician Assistant; Visit Provider Psychiatry & Neurology Psychiatry
DX: F15.950 Other stimulant use, unspecified with stimulant-induced psychotic disorder with delusions (principal); F10.20 Alcohol dependence, uncomplicated; Y90.7 Blood alcohol level of 200-239 mg/100 ml; B19.20 Unspecified viral hepatitis C without hepatic coma; E78.2 Mixed hyperlipidemia; F32.9 Major depressive disorder, single episode, unspecified; F41.9 Anxiety disorder, unspecified; J45.909 Unspecified asthma, uncomplicated; I10 Essential (primary) hypertension; E55.9 Vitamin D deficiency, unspecified; F17.210 Nicotine dependence, cigarettes, uncomplicated; B85.0 Pediculosis due to Pediculus humanus capitis; G25.81 Restless legs syndrome; K21.9 Gastro-esophageal reflux disease without esophagitis; F12.20 Cannabis dependence, uncomplicated; F43.12 Post-traumatic stress disorder, chronic
CPT/HCPCS: 36415; 80053; 80306; 80307; 81001; 84443; 84703; 85025; 87426; 87804; 90471; 90686; 93005; 96372; 97150; 97165; 99285; J3490

== ENCOUNTER 2023-06-26 11:03 | Emergency (ER) | payer MEDICAID, SELFPAY ==
[2023-06-26 11:06] VITALS: BP 146/114; PULSE 94; RESP 18; TEMP 36.6; O2SAT 97; BMI 28.1
[2023-06-26 11:12] VITALS: BP 146/114; PULSE 94; RESP 18; O2SAT 97
[2023-06-26 11:19] LABS: Basophils % 0.5 %; Eosinophils # 0.1 10^3/uL (0.0-0.8); Eosinophils % 1.4 %; Hematocrit 47.2 % (36-47); Lymphocytes # 1.8 10^3/uL (0.8-4.8); Lymphocytes % 30.3 %; Mean Corpuscular HGB Conc 34.1 g/dL (30-55); Mean Corpuscular Hemoglobin 32.7 pg (27-33); Mean Corpuscular Volume 95.9 fl (85-98); Mean Platelet Volume 9.7 fL (7.4-10.4); Monocytes # 0.4 10^3/uL (0.2-0.9); Monocytes % 6.4 %; Neutrophils # 3.62 10^3/uL (1.8-7.7); Neutrophils % 61.2 %; Nucleated Red Blood Cells % 0 %; Platelet Count 218 10^3/cmm (157-399); Red Blood Count 4.92 10^6/uL (3.85-5.65); Red Cell Distribution Width 11.5 % (12.1-15.1); White Blood Count 5.91 10^3/uL (3.29-11.43)
--- NOTE | 2023-06-26 11:28 | PC.PHAR ---
06/26/23. PT STATES DOES NOT KNOW WHAT MEDICATIONS SHE TAKES OR WHEN LAST TAKEN AND DOES NOT KNOW WHAT PHARMACY SHE USES. SPOKE WITH FE IN OUR MAIN PHARMACY AND SHE VERIFIED THE MEDICATIONS PT DISCHARGED WITH ON 05/27/23 FROM NPU.
[2023-06-26 11:43] LABS: Alanine Aminotransferase 56 U/L (0-33); Albumin Level 4.4 g/dL (3.5-5.2); Alkaline Phosphatase 77 U/L (35-105); Anion Gap 15.3 (5-19); Aspartate Amino Transferase 51 U/L (0-32); Blood Urea Nitrogen 11 mg/dL (6-20); Calcium 9.7 mg/dL (8.5-10.5); Carbon Dioxide 27 mmol/L (22-29); Chloride 102 mmol/L (98-107); Globulin 3.5 g/dL (1.3-4.6); Glomerular Filtration Rate 79.9 mL/min (90-130); Glucose 94 mg/dL (65-115); Osmolality Calculated 289 mOsm/kg (285-295); Potassium 4.3 mmol/L (3.5-5.1); Sodium 140 mmol/L (136-145); Total Protein 7.9 g/dL (6.6-8.7)
[2023-06-26 11:45] LABS: Acetaminophen < 5.0 ug/mL (10-30); Alcohol Level < 10 mg/dL (0-10); Salicylate < 0.3 mg/dL (3-10)
[2023-06-26 12:01] LABS: HCG Qualitative Urine. Negative (Negative)
[2023-06-26 12:06] LABS: Amphetamines Screen Urine Negative (Negative); Barbiturates Screen Urine Negative (Negative); Benzodiazepines Screen Urine Negative (Negative); Cocaine Screen Urine Negative (Negative); Opiate Screen Urine Negative (Negative); PCP Screen Urine Negative (Negative); THC Screen Urine Negative (Negative)
--- NOTE | 2023-06-26 12:27 | ED.C_ITS ---
HPI - Psych 2 General: Chief Complaint: Psychiatric Symptoms Stated Complaint: MHE Time Seen by Provider: 06/26/23 11:06 Source: patient and EMS Mode of arrival: EMS Limitations: no limitations History of Present Illness: 38-year-old female who has a history of drug abuse. Patient is going to be [facility] today and states she did seem confused wanted her medically cleared. Patient is here she is answering my questions appropriately is ANO x 3 does have a history of IV drug abuse she denies being SI or HI. Review of Systems 2 Const: Denies: fever(s), chills, body aches or change in appetite ENMT: Denies: throat pain or dental pain Card: Denies: chest pain Resp: Denies: dyspnea GI: Denies: abdominal pain, nausea, vomiting or diarrhea Musc: Denies: neck pain or back pain Skin/Breast: Denies: rash Neuro: Denies: headache(s) PFSH ED 2 PFSH: Medical History Psychiatric care Hepatitis C Allergic rhinitis Smoking addiction OROSCO (dyspnea on exertion) Dyslipidemia Abnormal EKG Atypical chest pain Declined smoking cessation Abscess of skin of abdomen Head lice Right knee pain Bilateral knee pain Right shoulder pain Alcohol use disorder, severe, dependence Major depressive disorder, recurrent, moderate Allergic atopic asthma without complication Anxiety Asthma Bee sting allergy Mixed hyperlipidemia Essential (primary) hypertension Vitamin D insufficiency Surgical History History of cholecystectomy History of tubal ligation Family History Family/Other CAD (coronary artery disease) Cancer Lung disease Father CAD (coronary artery disease) Lung disease Grandmother Cancer Mother Chronic kidney disease (CKD) Diabetes Stroke Grandfather Diabetes Daughter Lung disease Other Hypertension Denies family history of Clotting disorder Dementia Suicide Anesthesia complication Bleeding disorder Social History Smoking and tobacco/nicotine status: current every day tobacco/nicotine user cigarettes Packs smoked per day: 0.5 Years cigarettes smoked: 17 Quit status (tobacco/nicotine): has tried quititng Number of times tried to quit tobacco: 2 Second hand smoke exposure: Yes Alcohol intake: current Alcohol intake frequency: few times a month Substance/Drug Use: former Date of last use: IV drugs Caregiver/support person: No Lives independently: Yes Household members: spouse Marital status: Number of children: 4 service: No Current occupational status: unemployed Do you think of yourself as: Straight/Heterosexual Current gender identity: Female Physical Exam 2 Const: COMMON NORMALS: no acute distress, patient oriented x3 and healthy appearing HENMT: COMMON NORMALS: normocephalic and atraumatic HEAD & SCALP: n ormocephalic and atraumatic Eye: COMMON NORMALS: Equal, round and reactive pupils present and EOMs intact bilaterally PUPIL: Yes Equal, round and reactive pupils present Neck/C-Spine: COMMON NORMALS: full ROM and supple Chest: COMMONS NORMALS: normal inspection of the chest and normal palpation of entire chest wall Resp: COMMON NORMALS: normal respiratory effort, No retractions, No use of accessory muscles and clear to auscultation bilaterally AUSCULTATION: clear to auscultation bilaterally Cardio: COMMON NORMALS: regular rate, regular rhythm and No murmurs present (Cardio) RATE: regular rate RHYTHM: regular rhythm GI: COMMON NORMALS: Normal to inspection, nondistended, normoactive bowel sounds present, Soft to palpation, non-tender and no masses PALPATION: Yes Soft to palpation Extremity: COMMON NORMALS: normal to inspection and full ROM Neuro: COMMON NORMALS: patient oriented x3, moves all extremities and no focal motor deficits Psych: COMMON NORMALS: mental status grossly normal, Normal thought process present and cooperative THOUGHT PROCESS: Normal thought process present Skin: COMMON NORMALS: no rashes or lesions noted and no wounds GENERAL SKIN EXAM: no rashes or lesions noted Course 2 Vital Signs: Vital signs: Vital Signs Temperature 97.8 F 06/26/23 11:06 Pulse Rate 94 06/26/23 11:12 Respiratory Rate 18 06/26/23 11:12 Blood Pressure 146/114 06/26/23 11:12 Pulse Oximetry 97 06/26/23 11:12 Oxygen Delivery Me thod Room Air 06/26/23 11:12 [facility] - Psych Medical Decision Making Patient presents here with drug abuse she is well-appearing here and medically cleared and is stable for discharge at this time she is going to [facility]. Lab Data I reviewed the patient's lab results. 06/26/23 11:12 06/26/23 11:12 Laboratory Results WBC 5.91 10^3/uL (3.29-11.43) 06/26/23 11:12 RBC 4.92 10^6/uL (3.85-5.65) 06/26/23 11:12 Hgb 16.10 g/dL (11.27-16.99) 06/26/23 11:12 Hct 47.2 % (36-47) H 06/26/23 11:12 MCV 95.9 fl (85-98) 06/26/23 11:12 MCH 32.7 pg (27-33) 06/26/23 11:12 MCHC 34.1 g/dL (30-55) 06/26/23 11:12 RDW 11.5 % (12.1-15.1) L 06/26/23 11:12 Plt Count 218 10^3/cmm (157-399) 06/26/23 11:12 MPV 9.7 fL (7.4-10.4) 06/26/23 11:12 Neut % (Auto) 61.2 % 06/26/23 11:12 Lymph % (Auto) 30.3 % 06/26/23 11:12 [place] % (Auto) 6.4 % 06/26/23 11:12 Eos % (Auto) 1.4 % 06/26/23 11:12 Baso % (Auto) 0.5 % 06/26/23 11:12 Neut # (Auto) 3.62 10^3/uL (1.8-7.7) 06/26/23 11:12 Lymph # (Auto) 1.8 10^3/uL (0.8-4.8) 06/26/23 11:12 [place] # (Auto) 0.4 10^3/uL (0.2-0.9) 06/26/23 11:12 Eos # (Auto) 0.1 10^3/uL (0.0-0.8) 06/26/23 11:12 Baso # (Auto) 0.0 10^3/uL (0.0-0.1) 06/26/23 11:12 Nucleated RBC % (auto) 0 % 06/26/23 11:12 Nucleated RBCs # 0.0 /100WBC 06/26/23 11:12 Sodium 140 mmol/L (136-145) 06/26/23 11:12 Potassium 4.3 mmol/L (3.5-5.1) 06/26/23 11:12 Chloride 102 mmol/L (98-107) 06/26/23 11:12 Carbon Dioxide 27 mmol/L (22-29) 06/26/23 11:12 Anion Gap 15.3 (5-19) 06/26/23 11:12 BUN 11 mg/dL (6-20) 06/26/23 11:12 Creatinine 0.8 mg/dL (0.5-0.9) 06/26/23 11:12 GFR Calculation 79.9 mL/min (90-130) L 06/26/23 11:12 Glucose 94 mg/dL (65-115) 06/26/23 11:12 Calculated Osmolality 289 mOsm/kg (285-295) 06/26/23 11:12 Calcium 9.7 mg/dL (8.5-10.5) 06/26/23 11:12 Total Bilirubin 1.0 mg/dL (0.15-1.2) 06/26/23 11:12 AST 51 U/L (0-32) H 06/26/23 11:12 ALT 56 U/L (0-33) H 06/26/23 11:12 Alkaline Phosphatase 77 U/L (35-105) 06/26/23 11:12 Total Protein 7.9 g/dL (6.6-8.7) 06/26/23 11:12 Albumin 4.4 g/dL (3.5-5.2) 06/26/23 11:12 Globulin 3.5 g/dL (1.3-4.6) 06/26/23 11:12 HCG, Qual Negative (Negative) 06/26/23 11:44 Salicylates < 0.3 mg/dL (3-10) L 06/26/23 11:12 Urine Opiates Screen Negative ng/mL (Negative) 06/26/23 11:44 Acetaminophen < 5.0 ug/mL (10-30) L 06/26/23 11:12 Ur Barbiturates Screen Negative ng/mL (Negative) 06/26/23 11:44 Ur Phencyclidine Scrn Negative ng/mL (Negative) 06/26/23 11:44 Ur Amphetamines Screen Negative ng/mL (Negative) 06/26/23 11:44 U Benzodiazepines Scrn Negative ng/mL (Negative) 06/26/23 11:44 Urine Cocaine Screen Negative ng/mL (Negative) 06/26/23 11:44 U Marijuana (THC) Screen Negative ng/mL (Negative) 06/26/23 11:44 Ethyl Alcohol < 10 mg/dL (0-10) 06/26/23 11:12 No radiology studies performed this visit Discharge Plan Discharge Patient Disposition: Home Clinical Impression: Drug abuse Condition: Stable Prescriptions: No Action paliperidone 6 mg Tablet Extended Release 24hr 6 mg PO DAILY 30 Days Qty: 30 1RF olanzapine 10 mg Tablet 10 mg PO BEDTIME 30 Days Qty: 30 1RF thiamine mononitrate (vit B1) [Vitamin B-1 (mononitrate)] 100 mg Tablet 100 mg PO DAILY 30 Days Qty: 30 1RF gabapentin 300 mg Capsule 300 mg PO TID 30 Days Qty: 90 1RF folic acid 1 mg Tablet 1 mg PO DAILY 30 Days Qty: 30 1RF Discharge Orders: Discharge ED (Routine); Ordered 06/26/23 Ordered By: Radha Moe Discharge Diet: Advance as tolerated Discharge Activity: Resume usual activity Patient Instructions: Polysubstance Use Disorder (ED) Coding Level of Care Code ED Hotel Front Desk Clerk for Ricardo Reyes
--- NOTE | 2023-06-26 14:14 | PC.NURSE ---
HERMES TUCKER CALLED AND ASKED THIS NURSE TO SPEAK TO PHYSICIAN, LEFT VOICEMAIL. HERMES TUCKER CALLED BACK AND STATED THAT PHYSICIAN WAS ON PHONE WITH DR PECK. THIS NURSE CALLED DR PECK. DR PECK STATED THAT HE WAS NOT GOING TO GIVE REPORT OR REFERRAL ON A PATIENT THAT HE WAS NOT FAMILIAR WITH. THIS NURSE CALLED HERMES TUCKER BACK AND STATED THAT PATIENT WAS ALERT AND ORIENTED X 4 AND NEGATIVE ON ETOH AND DRUGS. DR MCLEAN NOTIFIED AND VERBALIZED TO DISCHARGE PATIENT. PATIENT GIVEN OPTION TO CALL SOMEONE FOR RIDE. PATIENT REFUSED AND STATED I JUST WANT TO LEAVE. PATIENT AMBULATED TO EXIT.
== END 2023-06-26 14:12 | disposition home or self-care (01) ==
PROVIDERS: Emergency Provider Emergency Medicine
DX: F19.10 Other psychoactive substance abuse, uncomplicated (principal)
CPT/HCPCS: 36415; 80053; 80306; 80307; 81025; 85025; 99283

== ENCOUNTER 2023-07-09 14:16 | Inpatient (IN) | payer MEDICAID, SELFPAY ==
[2023-07-09 14:17] VITALS: BP 103/68; PULSE 108; RESP 18; TEMP 37.1; O2SAT 98; BMI 32.8
--- NOTE | 2023-07-09 14:20 | ECG_ITS ---
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 Measurements Intervals [place] Rate: 84 P: 56 ID: [id number] QRS: 71 QRSD: 98 T: 54 QT: 383 QTc: 453 Interpretive Statements SINUS RHYTHM WITH SINUS ARRHYTHMIA Compared to ECG 05/18/2023 18:17:05 No significant changes Electronically Signed On 07-09-2023 18:28:57 COFFEE BREAK ATTENDANT by Tom Weller M.D. [email or web address] [id number]
[2023-07-09 14:29] VITALS: BP 103/68; PULSE 108; RESP 18; O2SAT 98
[2023-07-09 14:40] LABS: Basophils % 0.6 %; Eosinophils # 0.1 10^3/uL (0.0-0.8); Eosinophils % 1.6 %; Lymphocytes % 39.1 %; Mean Corpuscular HGB Conc 33.4 g/dL (30-55); Mean Corpuscular Hemoglobin 32.3 pg (27-33); Mean Corpuscular Volume 96.7 fl (85-98); Mean Platelet Volume 9.6 fL (7.4-10.4); Monocytes # 0.4 10^3/uL (0.2-0.9); Monocytes % 6.8 %; Neutrophils # 2.63 10^3/uL (1.8-7.7); Neutrophils % 51.3 %; Nucleated Red Blood Cells % 0 %; Platelet Count 195 10^3/cmm (157-399); Red Blood Count 4.55 10^6/uL (3.85-5.65); Red Cell Distribution Width 11.9 % (12.1-15.1); White Blood Count 5.12 10^3/uL (3.29-11.43)
[2023-07-09 14:56] LABS: Add Urine Microscopic? YES; Bilirubin Urine Neg (Negative); Blood Urine Neg (Negative); Glucose Urine UA Norm (Normal); Ketones Urine Negative (Negative); Leukocyte Esterase Urine 2+ (Negative); Nitrate Urine Negative (Negative); Protein Urine Neg (Negative); Urine Appearance Cloudy (CLEAR); Urine Color Yellow (Yellow); Urobilinogen Urine Norm (Negative); pH Urine 5 (5-7)
[2023-07-09 14:59] LABS: Alanine Aminotransferase 91 U/L (0-33); Albumin Level 3.9 g/dL (3.5-5.2); Alcohol Level 186 mg/dL (0-10); Alkaline Phosphatase 90 U/L (35-105); Anion Gap 17.7 (5-19); Aspartate Amino Transferase 108 U/L (0-32); Blood Urea Nitrogen 11 mg/dL (6-20); Calcium 9.1 mg/dL (8.5-10.5); Carbon Dioxide 23 mmol/L (22-29); Chloride 109 mmol/L (98-107); Globulin 3.3 g/dL (1.3-4.6); Glomerular Filtration Rate 79.9 mL/min (90-130); Glucose 97 mg/dL (65-115); Osmolality Calculated 301 mOsm/kg (285-295); Potassium 3.7 mmol/L (3.5-5.1); Sodium 146 mmol/L (136-145); Total Bilirubin 0.6 mg/dL (0.15-1.2); Total Protein 7.2 g/dL (6.6-8.7)
[2023-07-09 15:00] LABS: Acetaminophen < 5.0 ug/mL (10-30); Salicylate < 0.3 mg/dL (3-10)
[2023-07-09 15:01] LABS: Amphetamines Screen Urine Negative (Negative); Barbiturates Screen Urine Negative (Negative); Benzodiazepines Screen Urine Negative (Negative); Cocaine Screen Urine Negative (Negative); Opiate Screen Urine Negative (Negative); PCP Screen Urine Negative (Negative); THC Screen Urine Negative (Negative)
[2023-07-09 15:21] LABS: RBC Urine 0-4 /hpf (0-2)
[2023-07-09 15:22] LABS: Add Urine Culture? Yes; Bacteria Urine 2+ /hpf; Mucus Urine 1+ /hpf; Transitional Epi Cells Urine 0-4 /hpf; Trichomonas Urine 1+ /hpf
--- NOTE | 2023-07-09 15:59 | ED.C_ITS ---
HPI - Psych 2 General: Chief Complaint: Psychiatric Symptoms Stated Complaint: 96 Hold Time Seen by Provider: 07/09/23 14:28 Source: patient and police Limitations: no limitations History of Present Illness: 38-year-old female I have seen in the [facility] she has had a history of drug abuse along with EtOH use along with some psychosis. She does admit to drinking this morning patient had police called on her because she was talking herself in the street and bystanders were concerned with her safety patient denies SI or HI to me. She is intoxicated here she has no other complaints at this time. Associated symptoms: Deny depression Review of Systems 2 Const: Denies: fever(s), chills, body aches or change in appetite Eyes: Denies: blurry vision or eye discomfort ENMT: Denies: throat pain or dental pain Card: Denies: chest pain Resp: Denies: dyspnea GI: Denies: abdominal pain, nausea, vomiting or diarrhea : Denies: dysuria Musc: Denies: neck pain or back pain Skin/Breast: Denies: rash Neuro: Denies: headache(s) Psych: Denies: depression PFSH ED 2 PFSH: Medical History Psychiatric care Hepatitis C Allergic rhinitis Smoking addiction OROSCO (dyspnea on exertion) Dyslipidemia Abnormal EKG Atypical chest pain Declined smoking cessation Abscess of skin of abdomen Head lice Right knee pain Bilateral knee pain Right shoulder pain Alcohol use disorder, severe, dependence Major depressive disorder, recurrent, moderate Allergic atopic asthma without complication Anxiety Asthma Bee sting allergy Mixed hyperlipidemia Essential (primary) hypertension Vitamin D insufficiency Surgical History History of cholecystectomy History of tubal ligation Family History Family/Other CAD (coronary artery disease) Cancer Lung disease Father CAD (coronary artery disease) Lung disease Grandmother Cancer Mother Chronic kidney disease (CKD) Diabetes Stroke Grandfather Diabetes Daughter Lung disease Other Hypertension Denies family history of Clotting disorder Dementia Suicide Anesthesia complication Bleeding disorder Social History Smoking and tobacco/nicotine status: current every day tobacco/nicotine user cigarettes Packs smoked per day: 0.5 Years cigarettes smoked: 17 Quit status (tobacco/nicotine): has tried quititng Number of times tried to quit tobacco: 2 Second hand smoke exposure: Yes Alcohol intake: current Alcohol intake frequency: few times a month Substance/Drug Use: former Date of last use: IV drugs Caregiver/support person: No Lives independently: Yes Household members: spouse Marital status: Number of children: 4 service: No Current occupational status: unemployed Do you think of yourself as: Straight/Heterosexual Current gender identity: Female Physical Exam 2 Const: COMMON NORMALS: no acute distress, patient oriented x3 and healthy appearing HENMT: COMMON NORMALS: normocephalic and atraumatic HEAD & SCALP: n ormocephalic and atraumatic Eye: COMMON NORMALS: Equal, round and reactive pupils present and EOMs intact bilaterally PUPIL: Yes Equal, round and reactive pupils present Neck/C-Spine: COMMON NORMALS: full ROM and supple Chest: COMMONS NORMALS: normal inspection of the chest and normal palpation of entire chest wall Resp: COMMON NORMALS: normal respiratory effort, No retractions, No use of accessory muscles and clear to auscultation bilaterally AUSCULTATION: clear to auscultation bilaterally Cardio: COMMON NORMALS: regular rate, regular rhythm and No murmurs present (Cardio) RATE: regular rate RHYTHM: regular rhythm GI: COMMON NORMALS: Normal to inspection, nondistended, normoactive bowel sounds present, Soft to palpation, non-tender and no masses PALPATION: Yes Soft to palpation Extremity: COMMON NORMALS: normal to inspection and full ROM Neuro: COMMON NORMALS: patient oriented x3, moves all extremities and no focal motor deficits Psych: COMMON NORMALS: mental status grossly normal, Normal thought process present and cooperative THOUGHT PROCESS: Normal thought process present Skin: COMMON NORMALS: no rashes or lesions noted and no wounds GENERAL SKIN EXAM: no rashes or lesions noted Course 2 Vital Signs: Vital signs: Vital Signs Temperature 98.7 F 07/09/23 14:17 Pulse Rate 98 07/09/23 18:07 Respiratory Rate 18 07/09/23 18:07 Blood Pressure 103/68 07/09/23 14:29 Pulse Oximetry 96 07/09/23 18:07 Oxygen Delivery Me thod Room Air 07/09/23 18:07 MDM - Psych Medical Decision Making Patient presents here with depression she had recently been arguing with her as well she denies SI or HI she was evaluated here by psychiatrist Dr. Carrera they did come to plan for her to be admitted under voluntary status at this time. She is medically cleared and will admit at this time Medical Records I reviewed the patient's medical records. Lab Data I reviewed the patient's lab results. 07/09/23 14:33 07/09/23 14:33 Laboratory Results WBC 5.12 10^3/uL (3.29-11.43) 07/09/23 14:33 RBC 4.55 10^6/uL (3.85-5.65) 07/09/23 14:33 Hgb 14.70 g/dL (11.27-16.99) 07/09/23 14:33 Hct 44.0 % (36-47) 07/09/23 14:33 MCV 96.7 fl (85-98) 07/09/23 14:33 MCH 32.3 pg (27-33) 07/09/23 14:33 MCHC 33.4 g/dL (30-55) 07/09/23 14:33 RDW 11.9 % (12.1-15.1) L 07/09/23 14:33 Plt Count 195 10^3/cmm (157-399) 07/09/23 14:33 MPV 9.6 fL (7.4-10.4) 07/09/23 14:33 Neut % (Auto) 51.3 % 07/09/23 14:33 Lymph % (Auto) 39.1 % 07/09/23 14:33 [place] % (Auto) 6.8 % 07/09/23 14:33 Eos % (Auto) 1.6 % 07/09/23 14:33 Baso % (Auto) 0.6 % 07/09/23 14:33 Neut # (Auto) 2.63 10^3/uL (1.8-7.7) 07/09/23 14:33 Lymph # (Auto) 2.0 10^3/uL (0.8-4.8) 07/09/23 14:33 [place] # (Auto) 0.4 10^3/uL (0.2-0.9) 07/09/23 14:33 Eos # (Auto) 0.1 10^3/uL (0.0-0.8) 07/09/23 14:33 Baso # (Auto) 0.0 10^3/uL (0.0-0.1) 07/09/23 14:33 Nucleated RBC % (auto) 0 % 07/09/23 14:33 Nucleated RBCs # 0.0 /100WBC 07/09/23 14:33 Sodium 146 mmol/L (136-145) H 07/09/23 14:33 Potassium 3.7 mmol/L (3.5-5.1) 07/09/23 14:33 Chloride 109 mmol/L (98-107) H 07/09/23 14:33 Carbon Dioxide 23 mmol/L (22-29) 07/09/23 14:33 Anion Gap 17.7 (5-19) 07/09/23 14:33 BUN 11 mg/dL (6-20) 07/09/23 14:33 Creatinine 0.8 mg/dL (0.5-0.9) 07/09/23 14:33 GFR Calculation 79.9 mL/min (90-130) L 07/09/23 14:33 Glucose 97 mg/dL (65-115) 07/09/23 14:33 Calculated Osmolality 301 mOsm/kg (285-295) H 07/09/23 14:33 Calcium 9.1 mg/dL (8.5-10.5) 07/09/23 14:33 Total Bilirubin 0.6 mg/dL (0.15-1.2) 07/09/23 14:33 AST 108 U/L (0-32) H 07/09/23 14:33 ALT 91 U/L (0-33) H 07/09/23 14:33 Alkaline Phosphatase 90 U/L (35-105) 07/09/23 14:33 Total Protein 7.2 g/dL (6.6-8.7) 07/09/23 14:33 Albumin 3.9 g/dL (3.5-5.2) 07/09/23 14:33 Globulin 3.3 g/dL (1.3-4.6) 07/09/23 14:33 HCG, Qual Negative (Negative) 07/09/23 14:33 Urine Color Yellow (Yellow) 07/09/23 14:33 Urine Appearance Cloudy (CLEAR) A 07/09/23 14:33 Urine pH 5 (5-7) 07/09/23 14:33 Ur Specific [place] 1.020 (1.005-1.030) 07/09/23 14:33 Urine Protein Neg (Negative) 07/09/23 14:33 Urine Glucose (UA) Norm (Normal) 07/09/23 14:33 Urine Ketones Negative (Negative) 07/09/23 14:33 Urine Blood Neg (Negative) 07/09/23 14:33 Urine Nitrate Negative (Negative) 07/09/23 14:33 Urine Bilirubin Neg (Negative) 07/09/23 14:33 Urine Urobilinogen Norm mg/dL (Negative) 07/09/23 14:33 Ur Leukocyte Esterase 2+ (Negative) H 07/09/23 14:33 Urine RBC 0-4 /hpf (0-2) H 07/09/23 14:33 Urine WBC 10-15 /hpf (0-5) H 07/09/23 14:33 Ur Squamous Epith Cells 10-15 /hpf (0-5) H 07/09/23 14:33 Ur Transition Epith Cell 0-4 /hpf 07/09/23 14:33 Amorphous Sediment Not Reportable 07/09/23 14:33 Urine Bacteria 2+ /hpf (NONE) H 07/09/23 14:33 Urine Mucus 1+ /hpf 07/09/23 14:33 Urine Trichomonas 1+ /hpf H 07/09/23 14:33 Salicylates < 0.3 mg/dL (3-10) L 07/09/23 14:33 Urine Opiates Screen Negative ng/mL (Negative) 07/09/23 14:33 Acetaminophen < 5.0 ug/mL (10-30) L 07/09/23 14:33 Ur Barbiturates Screen Negative ng/mL (Negative) 07/09/23 14:33 Ur Phencyclidine Scrn Negative ng/mL (Negative) 07/09/23 14:33 Ur Amphetamines Screen Negative ng/mL (Negative) 07/09/23 14:33 U Benzodiazepines Scrn Negative ng/mL (Negative) 07/09/23 14:33 Urine Cocaine Screen Negative ng/mL (Negative) 07/09/23 14:33 U Marijuana (THC) Screen Negative ng/mL (Negative) 07/09/23 14:33 Ethyl Alcohol 186 mg/dL (0-10) H 07/09/23 14:33 No radiology studies performed this visit EKG Data EKG 1: I personally reviewed and interpreted this EKG as follows: EKG interpretation date: 07/09/23 EKG interpretation time: 15:38 Interpretation: nsr hr [address] or t wave abnormalities qrs 98 qtc 423 Discharge Plan Discharge Patient Disposition: Admitted As Inpatient Admit Provider: Domenic Carrera Clinical Impression: Depression, Alcohol intoxication Condition: Stable Coding Level of Care Code ED Adjunct Faculty Mathematics Department for Ricardo Reyes
[2023-07-09 16:50] LABS: HCG Qualitative Urine. Negative (Negative)
[2023-07-09 18:07] VITALS: PULSE 98; RESP 18; O2SAT 96
[2023-07-09 18:34] VITALS: BP 135/86; PULSE 86; RESP 16; TEMP 36.8; O2SAT 98
[2023-07-09 20:19] VITALS: BP 123/88; PULSE 93; RESP 16; O2SAT 97
[2023-07-10 06:00] VITALS: BP 97/68; PULSE 60; RESP 15; TEMP 36.6; O2SAT 97
[2023-07-10 14:00] VITALS: BP 114/78; PULSE 70; RESP 14; O2SAT 100
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
[2023-07-10 21:00] VITALS: BP 108/72; PULSE 65; RESP 16; TEMP 36.5; O2SAT 97
[2023-07-11 06:00] VITALS: BP 127/69; PULSE 75; RESP 18; O2SAT 98
[2023-07-11 14:00] VITALS: BP 117/80; PULSE 68; RESP 16; TEMP 36.4; O2SAT 99
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
[2023-07-11 20:44] VITALS: BP 131/86; PULSE 69; RESP 18; TEMP 36.4; O2SAT 98
[2023-07-12 06:00] VITALS: BP 121/76; PULSE 61; RESP 18; O2SAT 96
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
[2023-07-12 11:42] VITALS: BP 121/76; PULSE 61; RESP 18; O2SAT 96
== END 2023-07-12 11:46 | disposition home or self-care (01) | DRG 885 ==
LOC: ER 17:03 → NP 17:18
PROVIDERS: Internal Medicine; Admitting Provider Psychiatry & Neurology Psychiatry; Emergency Provider Emergency Medicine; Visit Provider Psychiatry & Neurology Psychiatry
DX: F29 Unspecified psychosis not due to a substance or known physiological condition (principal); T76.11XA Adult physical abuse, suspected, initial encounter; F33.1 Major depressive disorder, recurrent, moderate; T76.31XA Adult psychological abuse, suspected, initial encounter; Y07.010 Husband, current, perpetrator of maltreatment and neglect; F10.129 Alcohol abuse with intoxication, unspecified; Y90.7 Blood alcohol level of 200-239 mg/100 ml; Z63.0 Problems in relationship with spouse or partner; F15.21 Other stimulant dependence, in remission; F17.210 Nicotine dependence, cigarettes, uncomplicated; F43.12 Post-traumatic stress disorder, chronic; F43.25 Adjustment disorder with mixed disturbance of emotions and conduct; Z86.19 Personal history of other infectious and parasitic diseases
CPT/HCPCS: 36415; 80053; 80306; 80307; 81001; 81025; 85025; 87086; 93005; 97150; 97165; 99285